=== PATIENT | female | born 1960 | race Caucasian/White ===

== ENCOUNTER 2017-09-23 12:00 | Emergency (ER) | payer MEDICARE | END 2017-09-23 13:20 | disposition home or self-care (01) | LOC: SCSER 12:00 | DX: J30.9 Allergic rhinitis, unspecified (principal); E03.9 Hypothyroidism, unspecified; K21.9 Gastro-esophageal reflux disease without esophagitis; E78.5 Hyperlipidemia, unspecified; I12.0 Hypertensive chronic kidney disease with stage 5 chronic kidney disease or end stage renal disease; N18.6 End stage renal disease; F31.9 Bipolar disorder, unspecified; Z79.899 Other long term (current) drug therapy | CPT/HCPCS: 99283 ==

== ENCOUNTER 2017-11-24 00:27 | Inpatient (IN) | payer MEDICARE ==
[2017-11-24] MEDS ORDERED: Diltiazem 125 MG in Sodium Chloride 0.9% 100 ML IVPB SCH (03:00)
[2017-11-24] MEDS ORDERED: Acetaminophen 325 MG TAB ONE (03:40)
[2017-11-24] MEDS ORDERED: Acetaminophen 325 MG TAB PO PRN (07:50)
[2017-11-24] MEDS ORDERED: Milk Of Magnesia 30 ML UDCUP PO PRN (07:50)
[2017-11-24] MEDS ORDERED: Heparin 5,000 UNITS/ML VIAL ONE (09:13)
[2017-11-24] MEDS: Heparin 5,000 UNITS/ML VIAL SC SCH ×3 (09:22→20:42)
[2017-11-24] MEDS: Docusate 100 MG CAP PO SCH ×2 (09:23→20:41)
--- NOTE | 2017-11-24 17:43 | HP ---
PRIMARY CARE PHYSICIAN: JOSE Rayo. PRESENTING COMPLAINTS: "I felt unwell." HISTORY OF PRESENT ILLNESS: Ms. Milla Olivia is a 57-year-old female with a past medical history of bipolar disorder, hyperlipidemia, hypertension, hypothyroidism, and ? Parkinson's disease who presen ray to the emergency room due to feeling unwell. She reports feeling unwell yesterday with nonspecif ic symptoms and some shortness of breath and earlier this morning, her son decided to take her throug h the emergency room in [place] where she was diagnosed with a left lung pneumonia and started o n treatment. While she was there, she was noted to be very tachycardic and EKG revealed atrial fibri llation with RVR. She was then transported to the emergency room at [place]. At the emergency ro om, she was given rate control medications successfully and eventually started on a Cardizem drip. PAST MEDICAL HISTORY: As above. PAST SURGICAL HISTORY: History of BTL. FAMILY HISTORY: Reviewed and noncontributory. SOCIAL HISTORY: Does not smoke cigarettes, drink alcohol or use illicit drugs. ALLERGIES: PENICILLIN, CODEINE. LABORATORY DATA: WBC 17,900, hemoglobin 11.8, platelets 116. CMP with BUN of 47, creatinine of 2.90 , otherwise unremarkable. BNP 244. TSH 3.0. ASSESSMENT AND PLAN: 1. Atrial fibrillation with rapid ventricular response, new onset. TSH within normal limits. We wi ll get the transthoracic echocardiogram. Continue on Cardizem drip. Wean off and have Cardiology co nsult. 2. Chronic kidney disease stage. We will monitor creatinine. Last creatinine before this admission was 2.72 in 04/2015. Clinically, she has an acute kidney injury, but we will monitor. 3. Hypertension. Blood pressure is around goal. We will resume her home medications. 4. Hyperlipidemia. We will also resume home medications. 5. Hypothyroidism. TSH within normal limits. We will resume levothyroxine. CODE STATUS: FULL CODE.
[2017-11-24 20:28] VITALS: BMI 46.1
[2017-11-24] MEDS: Divalproex Sodium DR 500 MG TAB PO SCH (20:40)
[2017-11-24] MEDS: Benztropine 1 MG TAB PO SCH (20:41)
[2017-11-24] MEDS: Pravastatin Sodium 40 MG TAB PO SCH (20:41)
--- NOTE | 2017-11-24 22:17 | CON ---
DATE OF CONSULTATION: 11/24/2017 DATE OF ADMISSION: 11/24/2017 INDICATION FOR CONSULTATION: A 57-year-old female with atrial fibrillation. HISTORY OF PRESENT ILLNESS: Please refer to the notes already dictated by my nurse practitioner. I have reviewed those notes and reviewed with the assessment and plan. This very unfortunate 57-year-o ld female who has a history of bipolar disorder, presented to the emergency room in [facility] not very well. She thought maybe she was sick. She did not continue herself. Her son said that she had now been taking medications for her bipolar disorder again and only she is very consistent a bout taking these. When she arrived there, it was thought that she possibly had some pneumonia, but she denied any recent fevers and she was not coughing and was found to be in atrial fibrillation with a rapid ventricular response. Hence she was transferred here to our facility for further evaluation and treatment. She has had no previous cardiac history. However, she does have a history of hypert ension, hyperlipidemia, and may have Parkinson's disease also, as well as her bipolar disorder. She may have recently been diagnosed with Parkinson's disease. At this time, she is resting more comfort ably. She has been started on medications in the form of diltiazem and she had been on atenolol at h ome, but she is on diltiazem at this time for rate control and appears to be under much better contro l at this time. But in arrival, her admission EKG showed heart were almost between 100 and 150 beats per minute. There were no ST segment changes to indicate ischemia; however, her son says that at th is occasion, she had been complaining of some chest tightness. Her EKG has evidence for a probable l eft ventricular hypertrophy. There is evidence also of left anterior fascicular block which really c annot be diagnosed in the face of left ventricular hypertrophy, but otherwise has atrial fibrillation with rapid ventricular response. For her past medical history, social history, review of systems, please refer to the notes dictated b y the nurse practitioner. PHYSICAL EXAMINATION: GENERAL: Reveals a short statured female who is in no acute distress at this time. She is actually alert and oriented. HEENT: Shows head to be normocephalic, atraumatic. Carotid pulses are present. There were no bruit s noted. CHEST: Clear to auscultation without any rales, rhonchi or wheezing. CARDIOVASCULAR: Exam reveals some tachycardia. There were no significant murmurs, heaves, thrills, bruits or rubs noted. ABDOMEN: Soft and nontender, slight obesity. No palpable masses. EXTREMITIES: Show no clubbing or cyanosis. No significant edema. She does have some stiffness and decreased mobility involving the right lower extremity due to previous hip surgery. Pedal pulses are present. NEUROLOGIC: The patient appears to be intact at this time. She also has poor dentition. Neurologic ally, I do not see any gross focal motor deficits at this time. IMPRESSION: 1. Atrial fibrillation with rapid ventricular response. She has been placed on heparin as well as I V diltiazem. We will start her also back on her beta blockers for better rate control. We do not kn ow how long she has had atrial fibrillation, so best to anticoagulate this lady. She will need to potter ve long-term anticoagulation and then when she has been anticoagulated for 4-6 weeks, we may consider electrical cardioversion of her atrial fibrillation back to normal sinus rhythm. Her echocardiogram indicates that the left atrium was moderately dilated, but it is less than 5.0 cm, then she may be a candidate to undergo cardioversion back to sinus rhythm but may need medical management in order to maintain sinus rhythm. Her ejection fraction also was slightly decreased at 45-50%, which may be ass ociated with atrial fibrillation and rapid ventricular response. Once it is under better control, th is may improve. 2. History of hypertension. We will resume her medications in order to better control the blood pre ssure. At this time, that appears to be under good control. Her last documented blood pressure was 130/97. 3. Hypercholesterolemia. We will continue her medications. Also, please note that she does have si gnificant stage III kidney disease; however, I did note that she is also taking losartan, which is an ARB. She sees a party demonstrator I believe at another facility and apparently does stay in touch with h er party demonstrator at this time. At this time, the goal would be to rate control this lady and start or al anticoagulation as soon as possible. For other information, please refer to the notes already dic tated by the nurse practitioner.
--- NOTE | 2017-11-24 23:45 | CON ---
DATE OF CONSULTATION: 11/24/2017 CARDIOLOGY CONSULT PRIMARY CARE PHYSICIAN: JOSE Rayo PRIMARY FILTER CHANGING TECHNICIAN: Dr. Carla Fried. REFERRING DOCTOR: Dr. Duy Jones. REASON FOR CARDIOLOGY CONSULTATION: New-onset atrial fibrillation. HISTORY OF PRESENT ILLNESS: Ms. Olivia is a very pleasant 57-year-old female with significant past medical history of bipolar disorder, hypertension, hyperlipidemia, hypothyroidism, chronic kidney disease stage 3, and the possible new onset of Parkinson disease. Patient presented to the emergency department in [place] due to the weakness, fatigue, intermittent shortness of breath, and light dizziness a few days. The patient was found to have atrial fibrillation with rapid ventricular response with slight shortness of breath, but not other cardiac complaints. Patient was transferred to [facility] for further evaluation and treatment. During the initial Cardiology assessment, patient denied any chest pain or discomfort in her chest, shortness of breath, or palpitation or fluttering in her chest, nausea, vomiting, or numbness in the left arm, or any other cardiologic complaints. Patient does not have any significant cardiac-related medical history. She never had a stress test or echocardiogram before. personnel monitor records shows atrial fibrillation with heart rate 70s-90s with diltiazem 5 mg per an hour at this moment. PAST MEDICAL HISTORY: 1. Chronic kidney disease, stage 3. She is following by Dr. Chacon at the [facility]. 2. Bipolar disorder. 3. Hypothyroidism. 4. Hypertension. 5. Hyperlipidemia. 6. Pneumonia. 7. History of UTI. 8. Possible new onset of Parkinson disease and very significant tremor in both arms. 9. She had several history of fall. PAST SURGICAL HISTORY: She had bilateral tubal ligation and right hip fusion. FAMILY HISTORY: The patient's mother and father due to heart disease, also they are very heavy smoker according to the patient's reports but other than that, there is no significant family history of coronary artery disease, diabetes, hypertension, CVA, or diabetes. SOCIAL HISTORY: Patient is and lived by herself. She had one son who lived well and living like 20 minutes from her home. She denies any ETOH, smoking, or illicit drug abuse. ALLERGIES: She is allergic to PENICILLIN, CODEINE. HOME MEDICATIONS: Depakote 1000 mg in a.m. and 500 mg in p.m., Risperdal 1 mg once a day, levothyroxine 100 mcg once a day, pravastatin 40 mg once a day, Protonix 40 mg once a day, losartan 50 mg once a day, Cogentin 1 mg twice a day , atenolol 50 mg once a day. REVIEW OF SYSTEMS: The following complete review of systems was negative, unless otherwise mentioned in the HPI or below: Constitutional: Weight loss or gain, sense of well-being, ability to conduct usual activities, exercise tolerance; however, she is having hard time to eat due to the severe tremors to the bilateral upper extremities. Skin: Rash, itching, change in hair growth, or nail changes. Breasts: Lumps, tenderness, swelling, nipple discharge. Eyes : She wears glasses, but denied any vision change, double vision, tearing, blind spots, pain. HEENT: Headache, vertigo, lightheadedness, nasal bleeding, cold, obstruction or discharge, dental difficulties, gingival bleeding, dentures , neck stiffness, pain, tenderness, mass in the thyroid or other areas. Cardiovascular: Precordial pain, substernal distress, palpitations, syncope, dyspnea on exertion, orthopnea, nocturnal dyspnea, edema, cyanosis, heart murmur , varicosis, claudication. Respiratory: Pain, no wheezing, stridor, cough, hemoptysis. Gastrointestinal: Poor appetite, dysphagia, indigestion, abdominal pain, heartburn, nausea, vomiting, diarrhea, abnormal stool, blood in the stool. Patient reports that she has chronic constipation. Genitourinary: Urgency, frequency, dysuria, nocturia, hematuria, polyuria, oliguria, ege color of urine. Musculoskeletal: Patient reports patient's right side 1 inch shorter than left leg, so she wears the special shoes to balance, but she denied pain, swelling, redness, heat on muscle or joint, limit of motion. Positive for severe tremor in the upper extremities. Neurologic: Seizure, convulsion, paralysis, tremor, incoordination, difficulty with memory, or speech. Psychiatric: No emotional problem, anxiety, depression within last 3 months. PHYSICAL EXAMINATION: VITAL SIGNS: Patient's blood pressure in the ER was 108/74, heart rate around 70-80s with AFib, 2 liters on O2 sats, 98.4 temperature, respiratory rate 18. GENERAL: Well-developed, well-nourished without any acute distress. HEAD: Normocephalic, atraumatic. EYES: Extraocular muscle movement intact. ENT: Oral and nasal mucosa are moist without lesion. NECK: No JVD. Neck is supple and normal range of motion. LUNGS: Clear to auscultation bilaterally, but very diminished at bases. No wheezing, rales, or rhonchi noted. CARDIOVASCULAR: Irregular irregular. No significant murmur, hives, thrill, bruits, or rubs noted. There are 2+ pulses in the bilateral dorsal pedis, posterior tibial, and popliteal. Carotid pulses presented without bruit or thrill, no edema in the bilateral lower extremities. ABDOMEN: Soft, nontender or mass to palpate, nondistended. Bowel sounds are present. EXTREMITIES: She has a good appetite. MUSCULOSKELETAL: There are severe tremors in the bilateral upper extremities. No calf tenderness. She can sit at bedside without any difficulty, but she is having hard to difficulty to get up from the bed. SKIN: Warm and dry. No skin rash, lesion, or bruise noted. NEUROLOGIC: Alert, oriented x4, awake. Normal affect. Nonfocal. PSYCHIATRIC: Her mood and affect are normal. IMAGING: A 12-lead EKG at ER shows atrial fibrillation with rapid ventricular response with heart rate of 112, , but no ST segment change or T-wave inversion. LABORATORY DATA: The patient's labs WBC 7.9, hemoglobin 11.8, hematocrit 34.9, platelets 116. D-dimer 1.99. Sodium 136, potassium 3.8, BUN of 47, creatinine 2.9, glucose 125. AST 13, ALT 8. CK-MB is 1.2 and troponin is 0.020. BNP is 244. TSH is 3.0065. The patient's chest x-ray showed the opacity within in a left perihilar region and a mild left lung zone for possible infection of pneumonia and/or aspiration. Today's echocardiogram shows EF of 45%-50%, moderate dilated left atrium, mildly enlarged right atrium, mild mitral valve regurgitation, and mild tricuspid regurgitation. ASSESSMENT AND PLAN: 1. New-onset atrial fibrillation with rapid ventricular response. Patient's echocardiogram shows within normal range. The patient's TSH is also within normal range. Patient's heart rate is stable with diltiazem 5 mg per an hour IV. We would like to change the patient's medication to the p.o. form IV eventually, but we would like to continue the diltiazem at this moment. 2. Left-lobe pneumonia. The chest x-ray revealed that patient had pneumonia in the left lung. At this moment, patient is not on any diuretic. We defer the pneumonia management to the patient's primary care doctor. 3. Hypertension. Her blood pressure is stable at this time. We would like to continue patient on atenolol 50 mg once a day, losartan 50 mg once a day. We would like to continue to monitor. 4. Chronic kidney disease, stage 3. Patient's creatinine is 2.9 today, which was 2.72 in 2015. We would like to continue to monitor. 5. Elevated D-dimer. Patient is on heparin subcutaneous 5000 units 3 times a day. Patient denied any pain with breathing or lower extremities at this moment , we would like to continue to monitor. 6. Hyperlipidemia. She is on pravastatin 40 mg once a day. 7. Hypothyroidism. Patient's TSH within normal range. She is on levothyroxine 100 mcg, which is managed by her primary care doctor. 8. Possible new onset of Parkinson disease and very significant tremor in both arms. Her primary care doctors already resumed her Parkinson medication. The order for PT and OT evaluation and treatment were ordered. Thank you very much for allowing the Cardiology service to participate in the care of the patient. We will follow along with the patient's care team and make further recommendations as appropriate. BERNICED
[2017-11-25] MEDS: Levothyroxine Sodium 100 MCG TAB PO SCH (05:05)
[2017-11-25 05:25] LABS: #Eosinphils 0.1 thou/uL (0.0-0.7); #Lymphocytes 2.8 thou/uL (1.20-3.40); #Monocytes 0.6 thou/uL (0.11-0.59); #Neutrophils 3.7 thou/uL (1.40-6.50); %Basophils 0.7 % (0.0-1.0); %Eosinophils 0.9 % (0.0-10.0); %Monocytes 8.5 % (0.0-10.0); Hemoglobin 11.1 g/dL (12.0-16.0); Mean Corpuscular Hemoglobin 33.5 pg (27.0-31.0); Mean Platelet Volume 7.6 fL (7.4-10.4); Platelet Count 139 thou/uL (130-400); RBC Distribution Width 11.9 % (11.5-14.5); Red Blood Cell (RBC) Count 3.31 mill/uL (4.20-5.40); White Blood Cell (WBC) Count 7.3 thou/uL (4.8-10.8)
[2017-11-25 05:39] LABS: Anion Gap 12 mmol/L (10-20); BUN (Urea Nitrogen) 46 mg/dL (9.8-20.1); Calc. Creatinine Clearance 50 mL/min (70-130); Carbon Dioxide 24 mmol/L (22-29); Chloride 108 mmol/L (98-107); Estimated GFR-MDRD 26; Glucose 84 mg/dL (70-105); Magnesium 2.2 mg/dL (1.6-2.6); Potassium 4.3 mmol/L (3.5-5.1); Sodium 140 mmol/L (136-145)
--- NOTE | 2017-11-25 09:00 | PDOC.CTH ---
<Cecilia Nichole - Last Filed: 11/25/17 16:08> Cardiology Progress Note - Subjective The pt seen and examined. No overnight events. No cardiac complaints. - Objective Vital Signs Temp Pulse Resp BP Pulse Ox 11/25/17 03:48 97.5 F L 68 20 126/98 H 95 11/25/17 01:00 86 106/71 Weight 221 lb 4.8 oz 11/24/17 11/25/17 11/26/17 06:59 06:59 06:59 Intake Total 965 Output Total 700 Balance 265 - Physical Examination General/Neuro: alert & oriented x3 Neck: no JVD present Lungs: CTA Heart: RRR Abdomen: soft Extremities: other: (No edema) - Telemetry Telemetry Rhythm: Afib 80-90s - Labs Result Diagrams: 11/25/17 04:41 11/25/17 04:41 - Assessment/Plan 1. New onset Afib with RVR - Remains in Afib with well controlled HR with Diltiazem IV 5mg/h and atenolol. Change Diltiazem from IV to PO 120mg daily; cont. monitor on tele; Due to CHAD2 score 1, start ASA 325mg daily 2. HTN - stable with current medication; cont. monitor 3. CKD stage 3 - improving today. cont. monitor 4. Hyperlipidemia - on Statin 5. Hypothyroidism - managed by PCP 6. Parkinson disease - Per PT, the pt walked to bathroom without any difficulties. 7. PNA - managed by PCP MAR reviewed Review of Systems - Review of Systems Constitutional: reports: no symptoms reported EENTM: reports: no symptoms reported Respiratory: reports: no symptoms reported Cardiac (ROS): reports: no symptoms reported ABD/GI: reports: no symptoms reported : reports: flank pain Musculoskeletal: reports: other <Jyoti Fried - Last Filed: 11/25/17 18:25> Cardiology Progress Note - Objective Vital Signs Temp Pulse Pulse Pulse Resp BP BP 11/25/17 14:19 93 121/90 11/25/17 09:17 87 125/73 11/25/17 08:00 98.3 F 87 18 11/25/17 07:59 97 92 134/87 BP BP Pulse Ox 11/25/17 14:19 11/25/17 09:17 11/25/17 08:00 125/73 97 11/25/17 07:59 144/83 H Weight 221 lb 4.8 oz 11/24/17 11/25/17 11/26/17 06:59 06:59 06:59 Intake Total 965 Output Total 700 Balance 265 - Labs Result Diagrams: 11/25/17 04:41 11/25/17 04:41 - Assessment/Plan Pt. seen and eval. by me. I agree with the A/P by the MARKETING [employer] LEAD. For now the goal is to obtain rate control of the atrial fib. I suggest she have a stress test to rule out ischemia as a possible cause of the A-fib. However with the tremors it may be difficult to obtain good nuclear pictures. She should f/u with neurology and see if medical management can improve the tremors and then schedule for a stress test. With her renal compromise she is not a good candidate for cardiac cath. We will continue to monitor. A nephrology consult would be advisable.
[2017-11-25] MEDS: Heparin 5,000 UNITS/ML VIAL SC SCH ×3 (09:21→20:50)
[2017-11-25] MEDS: Losartan 25 MG TAB PO SCH (09:21)
[2017-11-25] MEDS: Docusate 100 MG CAP PO SCH ×2 (09:21→20:50)
[2017-11-25] MEDS: Benztropine 1 MG TAB PO SCH ×2 (09:21→20:50)
[2017-11-25] MEDS: risperiDONE 1 MG TAB PO SCH (09:22)
[2017-11-25] MEDS: Divalproex Sodium DR 500 MG TAB PO SCH ×2 (09:22→20:50)
--- NOTE | 2017-11-25 13:02 | PDOC.PN ---
- Subjective Encounter Start Date: 11/25/17 Encounter Start Time: 07:20 Pt seen for followup re: pneumonia. Denies cough, fevers or chills. No nausea or vomiting. - Objective Resuscitation Status: Resuscitation Status FULL:Full Resuscitation MAR Reviewed: Yes Vital Signs & Weight: Vital Signs (12 hours) Temp Pulse Pulse Pulse Resp BP BP 11/25/17 09:17 87 125/73 11/25/17 08:00 97.3 F L 87 18 11/25/17 07:59 97 92 134/87 11/25/17 03:48 97.5 F L 68 20 BP BP Pulse Ox 11/25/17 09:17 11/25/17 08:00 125/73 97 11/25/17 07:59 144/83 H 11/25/17 03:48 126/98 H 95 Weight Weight 221 lb 4.8 oz I&O: 11/24/17 11/25/17 11/26/17 06:59 06:59 06:59 Intake Total 965 Output Total 700 Balance 265 Result Diagrams: 11/25/17 04:41 11/25/17 04:41 EKG Reviewed by me: Yes (Tele: luis la with RVR) Phys Exam - Physical Examination Constitutional: NAD HEENT: moist MMs Neck: supple Respiratory: clear to auscultation bilateral Cardiovascular: irregular Gastrointestinal: soft Neurological: moves all 4 limbs Psychiatric: normal affect Skin: no rash Dx/Plan (1) PNA (pneumonia) Code(s): J18.9 - PNEUMONIA, UNSPECIFIED ORGANISM Status: Acute (2) Atrial fibrillation with RVR Code(s): I48.91 - UNSPECIFIED ATRIAL FIBRILLATION Status: Acute (3) CKD (chronic kidney disease) Code(s): N18.9 - CHRONIC KIDNEY DISEASE, UNSPECIFIED Status: Chronic (4) HLD (hyperlipidemia) Code(s): E78.5 - HYPERLIPIDEMIA, UNSPECIFIED Status: Chronic (5) HTN (hypertension) Code(s): I10 - ESSENTIAL (PRIMARY) HYPERTENSION Status: Chronic (6) Hypothyroidism Code(s): E03.9 - HYPOTHYROIDISM, UNSPECIFIED Status: Chronic - Plan continue antibiotics, out of bed/ambulate * . Continue IV antibiotics as below. Monitor vital signs, titrate antihypertensives as needed. Creatinine improving, hold nephrotoxic medications. Repeat CXR in 2 days to evaluate mass vs infiltrate. Continue synthroid. Continue calcium channel sawyer for a. fib. Review of Systems - Review of Systems Respiratory: negative: Cough, Dry, Shortness of Breath, Hemoptysis, SOB with Excertion, Pleuritic Pain, Sputum, Wheezing Cardiovascular: negative: chest pain, palpitations, orthopnea, paroxysmal nocturnal dyspnea, edema, light headedness - Medications/Allergies Allergies/Adverse Reactions: Allergies Allergy/AdvReac Type Severity Reaction Status Date / Time codeine Allergy Verified 11/24/17 02:49 Penicillins Allergy Verified 11/24/17 02:49 Medications: Current Medications Acetaminophen (Tylenol) 650 mg PO Q4H PRN PRN Reason: Headache/Fever or Pain Atenolol (Tenormin) 50 mg PO 2000 [facility] Benztropine Mesylate (Cogentin) 1 mg PO BID [facility] Last Admin: 11/25/17 09:21 Dose: 1 mg Diltiazem HCl (Cardizem Cd) 120 mg PO DAILY [facility] Last Admin: 11/25/17 09:17 Dose: 120 mg Divalproex Sodium (Depakote) 500 mg PO QPM [facility] Last Admin: 11/24/17 20:40 Dose: 500 mg Divalproex Sodium (Depakote) 1,000 mg PO QAM [facility] Last Admin: 11/25/17 09:22 Dose: 1,000 mg Docusate Sodium (Colace) 100 mg PO BID [facility] Last Admin: 11/25/17 09:21 Dose: 100 mg Heparin Sodium (Porcine) (Heparin) 5,000 units SC TID [facility] Last Admin: 11/25/17 09:21 Dose: 5,000 units Levothyroxine Sodium (Synthroid) 100 mcg PO 0600 [facility] Last Admin: 11/25/17 05:05 Dose: 100 mcg Losartan Potassium (Cozaar) 50 mg PO DAILY [facility] Last Admin: 11/25/17 09:21 Dose: 50 mg Magnesium Hydroxide (Milk Of Magnesium) 30 ml PO DAILYPRN PRN PRN Reason: Constipation Pantoprazole Sodium (Protonix) 40 mg PO DAILY [facility] Last Admin: 11/25/17 09:22 Dose: 40 mg Pravastatin Sodium (Pravachol) 40 mg PO HS [facility] Last Admin: 11/24/17 20:41 Dose: 40 mg Risperidone (Risperidone) 1 mg PO DAILY [facility] Last Admin: 11/25/17 09:22 Dose: 1 mg
[2017-11-25] MEDS ORDERED: Bisacodyl 5 MG TAB PO PRN (17:27)
[2017-11-25] MEDS ORDERED: Bisacodyl 5 MG TAB PO SCH (17:30)
[2017-11-25] MEDS ORDERED: Atenolol 50 MG TAB PO SCH (20:00)
[2017-11-25] MEDS: Pravastatin Sodium 40 MG TAB PO SCH (20:50)
[2017-11-26] MEDS: Levothyroxine Sodium 100 MCG TAB PO SCH (05:20)
[2017-11-26 05:33] LABS: Anion Gap 11 mmol/L (10-20); BUN (Urea Nitrogen) 36 mg/dL (9.8-20.1); Calc. Creatinine Clearance 64 mL/min (70-130); Calcium 9.3 mg/dL (7.8-10.44); Carbon Dioxide 25 mmol/L (22-29); Chloride 108 mmol/L (98-107); Estimated GFR-MDRD 35; Glucose 91 mg/dL (70-105); Magnesium 1.9 mg/dL (1.6-2.6); Potassium 4.7 mmol/L (3.5-5.1); Sodium 139 mmol/L (136-145)
[2017-11-26 05:39] LABS: Band 5 % (5-11); Eosinophils 2 % (0-10); Hemoglobin 11.6 g/dL (12.0-16.0); Lymphocytes 53 % (21-51); MDiff Complete? YES; Mean Corpuscular HGB CONC 33.7 g/dL (32.0-36.0); Mean Corpuscular Hemoglobin 34.3 pg (27.0-31.0); Mean Platelet Volume 7.2 fL (7.4-10.4); Monocytes 9 % (0-10); Neutrophil 30 % (42-75); PLT Morphology Comment Appears Adequate; Platelet Count 155 thou/uL (130-400); RBC Distribution Width 11.8 % (11.5-14.5); Red Blood Cell (RBC) Count 3.38 mill/uL (4.20-5.40); White Blood Cell (WBC) Count 5.3 thou/uL (4.8-10.8)
[2017-11-26] MEDS: Losartan 25 MG TAB PO SCH (08:47)
[2017-11-26] MEDS: Benztropine 1 MG TAB PO SCH (08:48)
[2017-11-26] MEDS: Heparin 5,000 UNITS/ML VIAL SC SCH ×2 (08:48→14:51)
[2017-11-26] MEDS: risperiDONE 1 MG TAB PO SCH (08:48)
[2017-11-26] MEDS: Divalproex Sodium DR 500 MG TAB PO SCH (08:48)
[2017-11-26] MEDS: Docusate 100 MG CAP PO SCH (08:48)
[2017-11-26] MEDS ORDERED: Aspirin 81 mg Enteric Coated Tablet PO SCH ×2 (09:15→09:30)
--- NOTE | 2017-11-26 10:17 | RAD ---
CHEST 2 VIEWS: HISTORY: Pneumonia. Followup. COMPARISON: 11/23/17. FINDINGS: The cardiac silhouette and pulmonary vasculature are upper limits of normal. Ill-defined parenchymal infiltrate within the left upper lobe is much less dense and consolidated than on the prior exam. M ediastinum is midline. NO pleural fluid. air sampling and monitoring leads overlie the chest. IMPRESSION: Significant interval improvement in left upper lobe infiltrate. No new abnormalities are demonstrate d. POS: OFF
[2017-11-26] MEDS ORDERED: Azithromycin 250 MG TAB PO SCH (13:00)
--- NOTE | 2017-11-26 14:42 | DIS ---
DATE OF ADMISSION: 11/24/2017 DATE OF DISCHARGE: 11/26/2017 PRIMARY CARE PROVIDER: Elvia Chapman NP. DISCHARGE DIAGNOSES: 1. Atrial fibrillation with rapid ventricular response. 2. Community-acquired pneumonia. CONDITION OF PATIENT ON THE DAY OF DISCHARGE: Stable. I assess Ms. Olivia on the day of discharge . She denies any chest pain or shortness of breath. Vital signs are stable. S1 and S2 are heard, i rregular. Lungs are clear to auscultation bilaterally. CONSULTATIONS DURING THIS HOSPITALIZATION: Cardiology, Dr. Fried. DISCHARGE MEDICATIONS: Aspirin 325 mg daily, atenolol 50 mg daily, Z-BRIAN, Cogentin 1 mg 2 times a d ay, Cardizem-CD 120 mg daily, Depakote 500 mg in the evening and 1000 mg in the morning, levothyroxin e 100 mcg daily, losartan 50 mg daily, Protonix 40 mg daily, pravastatin 40 mg at bedtime, and risper idone 1 mg daily. HOSPITAL COURSE: Ms. Olivia is a pleasant 57-year-old lady who was admitted to [facility] on 11/24/2017 for atrial fibrillation with rapid ventricular response. Just prior to this hospitalization, she was also diagnosed with pneumonia. The initial chest x-ray done on 018 questioned whether there was an underlying pulmonary parenchymal mass lesion on the basis of josephine gnancy. A follow up chest x-ray on 11/26/2017 showed significant interval improvement in left upper lobe infiltrates, with no new abnormalities. She is being started on azithromycin on the day of disc harge. She was seen by Cardiology Service for atrial fibrillation with rapid ventricular response. She has been started on Cardizem-CD. Her atenolol was continued. Cardiology Service also recommended treati ng her with aspirin for stroke prophylaxis. She also had renal insufficiency, peak creatinine 2.90 on 11/23/2017. Last known creatinine was 2.72 on 04/08/2015. Her creatinine improved to 1.54 on the day of discharge. She is advised to follow u p with her primary care provider and have her creatinine rechecked in approximately 5-7 days. On the day of discharge, she has a normal sodium, normal potassium, creatinine 1.54, blood urea nitro gen 36, white count 5300, hemoglobin 11.6, and platelet count 155,000. Many thanks for allowing me to participate in your patient's care. Please feel free to contact me wi th any questions or concerns. DISCHARGE DESTINATION: Home. TOTAL AMOUNT OF TIME SPENT COORDINATING THIS DISCHARGE: 32 minutes.
--- NOTE | 2017-11-26 15:14 | PDOC.CTH ---
<DayanaraCecilia - Last Filed: 11/26/17 15:14> Cardiology Progress Note - Subjective The pt seen and examined. No overnight events. No cardiac complaints. per pt , she walked the linda twice without any difficulties. She also reported that her tremors are stable with medications. - Objective Vital Signs Temp Pulse Pulse Pulse Resp BP BP 11/26/17 13:31 71 70 109/71 11/26/17 12:22 98.1 F 74 16 11/26/17 08:47 78 120/87 11/26/17 07:46 98.2 F 78 16 11/26/17 03:46 97.6 F 79 17 BP BP BP Pulse Ox Pulse Ox Pulse Ox 11/26/17 13:31 143/84 H 97 98 11/26/17 12:22 112/58 L 97 11/26/17 08:47 11/26/17 07:46 120/87 97 11/26/17 03:46 142/97 H 97 Weight 218 lb 11/25/17 11/26/17 11/27/17 06:59 06:59 06:59 Intake Total 965 1320 720 Output Total 700 650 Balance 265 670 720 - Physical Examination General/Neuro: alert & oriented x3 Neck: no JVD present Lungs: CTA Heart: other: (irregular) Abdomen: soft Extremities: other: (No edema) - Telemetry Telemetry Rhythm: Afib HR 70-80s - Labs Result Diagrams: 11/26/17 04:27 11/26/17 04:27 - Assessment/Plan 1. New onset Afib with RVR - Remains in Afib with well controlled HR 70-80s with Diltiazem 120mg Daily and atenolol. Due to [id number] score 1, start ASA 325mg daily 2. HTN - stable with current medication; cont. monitor 3. CKD stage 3 - improving today. cont. monitor 4. Hyperlipidemia - on Statin 5. Hypothyroidism - managed by PCP 6. Parkinson disease with tremor - stable 7. PNA - managed by PCP 8. UTI - on Antibiotic PO; managed by PCP CHARMAINE reviewed * Possible Stress test when her tremor improve with medication/procedures. * From Cardiac standpoint, the pt is stable to be d/obdulio home. The pt will f/u with Dr Fried' office within 4 wks with Echo to see if there any improvement with controlled HR and possible Cardioversion when the pt agrees. Review of Systems - Review of Systems Constitutional: reports: no symptoms reported EENTM: reports: no symptoms reported Respiratory: reports: no symptoms reported Cardiac (ROS): reports: no symptoms reported ABD/GI: reports: no symptoms reported : reports: no symptoms reported Musculoskeletal: reports: no symptoms reported Skin: reports: no symptoms reported Neurological: reports: see HPI <Jyoti Fried - Last Filed: 11/26/17 18:47> Cardiology Progress Note - Objective Vital Signs Temp Pulse Pulse Pulse Resp BP BP 11/26/17 15:37 97.5 F L 87 16 11/26/17 13:31 71 70 109/71 11/26/17 12:22 98.1 F 74 16 11/26/17 08:47 78 120/87 11/26/17 07:46 98.2 F 78 16 BP BP BP Pulse Ox Pulse Ox Pulse Ox 11/26/17 15:37 166/66 H 95 11/26/17 13:31 143/84 H 97 98 11/26/17 12:22 112/58 L 97 11/26/17 08:47 11/26/17 07:46 120/87 97 Weight 218 lb 11/25/17 11/26/17 11/27/17 06:59 06:59 06:59 Intake Total 965 1320 720 Output Total 700 650 Balance 265 670 720 - Labs Result Diagrams: 11/26/17 04:27 11/26/17 04:27 - Assessment/Plan Pt. seen and eval. by me. i agree with the a/P by the [employer]. She is feeling better today. The HR is under good control. I will see her back in the office in 2-3 weeks.
[2017-11-26 15:40] VITALS: BP 166/66; TEMP 97.5
[2017-11-27] MEDS ORDERED: Aspirin 325 mg Enteric Coated Tablet PO SCH (09:00)
[2017-11-27] MEDS ORDERED: Aspirin 325 MG TAB PO SCH (09:00)
--- NOTE | 2017-12-11 19:56 | EKG ---
Test Reason : AFIB Blood Pressure : / mmHG Vent. Rate : 112 BPM Atrial Rate : 087 BPM P-R Int : 000 ms QRS Dur : 106 ms QT Int : 326 ms P-R-T Axes : 000 -46 056 degrees QTc Int : 444 ms Atrial fibrillation with rapid ventricular response Left anterior fascicular block Moderate voltage criteria for LVH, may be normal variant Abnormal ECG Confirmed by RADHA MORRIS ([id number]), pictures editor VERÓNICA FITZGERALD ([id number]) on 12/11/2017 7:55:11 PM Referred By: REINA MACE Confirmed By:RADHA MORRIS
== END 2017-11-26 16:49 | disposition home or self-care (01) | DRG 308 ==
LOC: ERS 00:27 → ERHOLD 01:41 → 2NO 13:22
PROVIDERS: ADMIT Internal Medicine Infectious Disease; ATTEND Internal Medicine Infectious Disease
DX: I48.91 Unspecified atrial fibrillation (principal); J18.9 Pneumonia, unspecified organism; G20 Parkinson's disease; N39.0 Urinary tract infection, site not specified; N18.3 Chronic kidney disease, stage 3 (moderate); E03.9 Hypothyroidism, unspecified; E78.5 Hyperlipidemia, unspecified; I12.9 Hypertensive chronic kidney disease with stage 1 through stage 4 chronic kidney disease, or unspecified chronic kidney disease; F31.9 Bipolar disorder, unspecified; N28.9 Disorder of kidney and ureter, unspecified
CPT/HCPCS: 36415; 71046; 80048; 83735; 85025; 87040; 93005; 93306; 96365; 96366; 96372; 96376; G8978-GP-CL; G8979-GP-CJ; G8987-GO-CJ; G8988-GO-CJ; G8989-GO-CJ; J1644; J7050

== ENCOUNTER 2018-07-12 06:15 | Emergency (ER) | payer MEDICARE ==
[2018-07-12] MEDS ORDERED: HYDROcodone/Acetaminophen 5/325 mg Tablet ONE (06:50)
--- NOTE | 2018-07-12 07:56 | RAD ---
LEFT HIP 2 VIEWS: Date: 07/12/18 HISTORY: Fall with injury to left hip. FINDINGS: Mild degenerative change is noted with mild spurring from the femoral head. No evidence of acute frac ture identified. IMPRESSION: No evidence of acute fracture. POS: OLIM[place]
== END 2018-07-12 08:07 | disposition home or self-care (01) ==
LOC: ERS 06:15
DX: M25.552 Pain in left hip (principal); E03.9 Hypothyroidism, unspecified; K21.9 Gastro-esophageal reflux disease without esophagitis; E78.5 Hyperlipidemia, unspecified; I12.0 Hypertensive chronic kidney disease with stage 5 chronic kidney disease or end stage renal disease; N18.6 End stage renal disease; F31.9 Bipolar disorder, unspecified; W19.XXXA Unspecified fall, initial encounter

== ENCOUNTER 2019-02-28 15:46 | Inpatient (IN) | payer MEDICARE ==
[2019-02-28] MEDS ORDERED: Magnesium 2 GM/50 ML BAG (IN WATER) ONE (16:26)
[2019-02-28] MEDS ORDERED: Fentanyl 100 MCG/2 ML VIAL ONE (16:26)
[2019-02-28] MEDS ORDERED: Aspirin 325 MG TAB ONE (16:26)
[2019-02-28] MEDS ORDERED: Digoxin 0.5 MG/2 ML AMP SLOW IVP SCH (16:30)
[2019-02-28 16:40] LABS: #Basophils 0.1 thou/uL (0.0-0.2); #Eosinphils 0.1 thou/uL (0.0-0.7); #Lymphocytes 2.4 thou/uL (1.20-3.40); #Monocytes 0.8 thou/uL (0.11-0.59); #Neutrophils 3.7 thou/uL (1.40-6.50); %Basophils 1.2 % (0.0-1.0); %Eosinophils 0.9 % (0.0-10.0); %Lymphocytes 34.2 % (21.0-51.0); %Monocytes 11.2 % (0.0-10.0); %Neutrophils 52.5 % (42.0-75.0); Hemoglobin 12.3 g/dL (12.0-16.0); Mean Corpuscular HGB CONC 33.7 g/dL (32.0-36.0); Mean Corpuscular Hemoglobin 32.7 pg (27.0-31.0); Mean Platelet Volume 7.2 fL (7.4-10.4); Platelet Count 166 thou/uL (130-400); RBC Distribution Width 12.1 % (11.5-14.5); Red Blood Cell (RBC) Count 3.76 mill/uL (4.20-5.40); White Blood Cell (WBC) Count 7.1 thou/uL (4.8-10.8)
[2019-02-28 16:41] LABS: Bilirubin Negative (Negative); Blood, Urine Negative (Negative); Clarity CLEAR (Clear); Glucose, Urine (Dipstick) Negative (Negative); Leukocyte Negative (Negative); Nitrite Negative (Negative); Protein, Urine (Dipstick) Negative (Neg-Trace); Specific Gravity, Urine 1.006 (1.002-1.036); Urobilinogen 0.2 mg/dL (0.2-1.0); pH, Urine 6.5 (5.0-9.0)
--- NOTE | 2019-02-28 16:54 | RAD ---
Frontal radiograph chest: 02/28/2019 COMPARISON: 08/22/2011 HISTORY: Chest pain, atrial fibrillation with rapid ventricular rate FINDINGS: Heart and mediastinal contours are stable. No pneumothorax or pleural fluid. No focal conso lidation or alveolar edema. IMPRESSION: No acute findings.
[2019-02-28 17:05] LABS: ALT (SGPT) 10 U/L (8-55); AST (SGOT) 14 U/L (5-34); Albumin 3.8 g/dL (3.5-5.0); Alkaline Phosphatase 75 U/L (40-150); Anion Gap 14 mmol/L (10-20); BUN (Urea Nitrogen) 40 mg/dL (9.8-20.1); Bilirubin, Total 0.3 mg/dL (0.2-1.2); CK (CPK) 160 U/L (29-168); Calc. Creatinine Clearance 0 mL/min (70-130); Calcium 9.8 mg/dL (7.8-10.44); Carbon Dioxide 23 mmol/L (22-29); Chloride 105 mmol/L (98-107); Estimated GFR-MDRD 36; Globulin 4.1 g/dL (2.4-3.5); Glucose 84 mg/dL (70-105); Lipase 60 U/L (8-78); Potassium 4.2 mmol/L (3.5-5.1); Protein, Total 7.9 g/dL (6.0-8.3); Sodium 138 mmol/L (136-145)
[2019-02-28] MEDS ORDERED: Digoxin 0.5 MG/2 ML AMP ONE (17:26)
[2019-02-28 20:22] VITALS: BMI 43.9
[2019-02-28] MEDS ORDERED: Ondansetron ODT 4 MG TAB SL PRN (20:50)
[2019-02-28] MEDS ORDERED: Ondansetron PF 4 MG/2 ML Vial IVP PRN (20:50)
[2019-02-28] MEDS ORDERED: Sodium Chloride 0.9% 1,000 ML IV SCH ×2 (21:00→22:08)
[2019-02-28] MEDS: Digoxin 0.5 MG/2 ML AMP SLOW IVP SCH (23:44)
--- NOTE | 2019-03-01 02:18 | HP ---
PRIMARY CARE PHYSICIAN: Elvia Chapman NP. CODE STATUS: Full code. TIME OF EVALUATION: 10:20 p.m. CHIEF COMPLAINT: "My PA sent me here for AFib." HISTORY OF PRESENT ILLNESS: This is a 58 years old female patient, with past medical history of hypothyroidism, GERD, hyperlipidemia, hypertension, end-stage renal disease, Parkinson's, came to the hospital after having an episode of AFib. The patient reported that it was seen by her LARDER COOK and sent her here. The patient has no significant clear symptoms. The symptoms started suddenly. REVIEW OF SYSTEMS: CONSTITUTIONAL: No fever, chills, or generalized weakness. RESPIRATORY: No cough, sputum production, or shortness of breath. CARDIOVASCULAR: The patient has some palpitation. No chest pain. GASTROINTESTINAL: No nausea, no vomiting, diarrhea, or abdominal pain. SOLOIST DANCER: No dizziness, headache, or feeling lightheaded. GENITOURINARY: No burning on urination. EXTREMITIES: No leg swelling. All other systems were reviewed and negative except for the findings mentioned above. PAST MEDICAL HISTORY: Positive for the findings mentioned in HPI. PAST SURGICAL HISTORY: Breast biopsy, tubal ligation, right hip surgery, fusion. PSYCHIATRIC HISTORY: Bipolar disorder, manic depression. SOCIAL HISTORY: No alcohol, no drugs, no smoking history. KNOWN ALLERGIES: Codeine sulfate and penicillin. REPORTED MEDICATIONS: 1. Levothyroxine. 2. Lasix. 3. Pantoprazole. 4. Pravastatin. 5. Losartan. 6. Atenolol. 7. Benztropine. 8. Divalproex. 9. Risperidone. PHYSICAL EXAMINATION: VITAL SIGNS: On presentation, blood pressure 127/103 with heart rate 151, respiratory rate was 16, temperature 97.8, pain 7/10, oxygen saturation 97% on room air. GENERAL APPEARANCE: The patient is alert, oriented, not in acute distress. HEENT: Eyes, normal conjunctivae. Moist oral mucosa. Anicteric. No JVD. RESPIRATORY: Bilateral air entry. No rales. No wheezes. Symmetric expansion. CARDIOVASCULAR: Normal rate, irregular rhythm. No murmurs. No gallop. No edema. ABDOMEN: Soft. Normal bowel sounds. MUSCULOSKELETAL: Baseline range of motion and strength. No tenderness. SKIN: Warm, intact. No pallor. No rash. No redness. Peripheral pulses are present. Capillary refill seems to be intact. NEUROLOGICAL: No evidence of any new focal weakness. Cranial nerves seems to be intact. PSYCHIATRIC: The patient is in good mood. No anxiety. Optimal judgment. IMAGING STUDIES: EKG was reviewed. The patient has atrial fibrillation at a rate of 115, QRS 102, QT corrected 439, left posterior fascicular block. Chest x-ray was reviewed, no acute findings. LABORATORY DATA: Reviewed. The patient has white count 7.1, hemoglobin 12.3, MCV 97, platelet count 166. D-dimer 0.29. Chemistry; sodium 138, potassium 4.2, chloride 105, carbon dioxide 23, anion gap 14, BUN 40, creatinine 1.51, GFR 36, glucose 84. LFTs were negative. Troponin was negative. B-type natriuretic peptide was 489. Albumin 3.8, globulin 4.1, albumin globulin ratio 0.9, lipase 60. TSH 3rd generation 3.2. ASSESSMENT AND PLAN: The patient will be placed in the hospital with following medical problems; 1. Atrial fibrillation with rapid ventricular response. This has been controlled; however, the patient can be reassessed on discharge in the morning, reconcile home medications, we will adjust as needed. 2. Chronic kidney disease, stage 3, with GFR 36. We will monitor kidney function. This is chronic, no significant changes. We will adjust treatment depending on the patient's clinical course. 3. History of congestive heart failure exacerbation. This is to be chronic. 4. Hypothyroidism. Continue hormone replacement. This is chronic, stable. 5. History of gastroesophageal reflux disease, reconcile home medications. This is chronic. Stable. 6. Hyperlipidemia. Low-cholesterol diet is advised, reconcile home medications. 7. Controlled hypertension. Reconcile home medications, monitor. 8. Deep venous thrombosis prophylaxis. Job ID: [id number]
[2019-03-01] MEDS: Digoxin 0.5 MG/2 ML AMP SLOW IVP SCH (05:02)
[2019-03-01] MEDS ORDERED: Azithromycin 250 MG TAB PO SCH (09:45)
[2019-03-01] MEDS ORDERED: Furosemide 20 MG TAB PO SCH (10:15)
[2019-03-01] MEDS ORDERED: Levothyroxine Sodium 100 MCG TAB PO SCH (10:15)
[2019-03-01] MEDS ORDERED: Losartan 25 MG TAB PO SCH (10:15)
[2019-03-01] MEDS ORDERED: Atenolol 50 MG TAB PO SCH (10:15)
[2019-03-01] MEDS ORDERED: risperiDONE 1 MG TAB PO SCH (10:15)
[2019-03-01] MEDS ORDERED: Aspirin 325 mg Enteric Coated Tablet PO SCH (10:15)
[2019-03-01] MEDS ORDERED: Benztropine 1 MG TAB PO SCH ×2 (10:15→21:00)
[2019-03-01] MEDS ORDERED: Divalproex Sodium DR 500 MG TAB PO SCH ×2 (10:15→21:00)
--- NOTE | 2019-03-01 18:27 | CON ---
DATE OF CONSULTATION: 03/01/2019 REASON FOR CONSULTATION: AFib with RVR. PRIMARY EXPRESSIVE MUSIC THERAPIST: Carla Fried MD HISTORY OF PRESENT ILLNESS: Ms. Olivia is a pleasant 58-year-old white female, who comes to the hospital for AFib. She went to see her nurse practitioner/PA today and was found to be in AFib with RVR, so was transferred over to the ER. She was asymptomatic at that time. On my evaluation, she is back to sinus rhythm, feeling back to normal. PAST MEDICAL HISTORY: 1. Hypothyroidism. 2. GERD. 3. Hyperlipidemia. 4. Hypertension. 5. End-stage renal disease. 6. Early Parkinson disease. 7. Paroxysmal atrial fibrillation, diagnosed just 6 months ago. 8. Bipolar disorder. 9. Manic depression. PAST SURGICAL HISTORY: 1. Breast biopsy. 2. Tubal ligation. 3. Right hip surgery. SOCIAL HISTORY: No alcohol, tobacco or drugs. ALLERGIES: CODEINE AND PENICILLIN. OUTPATIENT MEDICATIONS: 1. Lasix 20 mg a day. 2. Pravastatin 40 mg at bedtime. 3. Pantoprazole 40 mg daily. 4. Losartan 50 mg a day. 5. Aspirin 325 a day. 6. Depakote. 7. Levothyroxine. 8. Risperidone. 9. Benztropine. 10. Amiodarone 200 mg b.i.d. FAMILY HISTORY: Noncontributory. REVIEW OF SYSTEMS: A 12-point review of systems was done and was all negative unless stated in the history of present illness. PHYSICAL EXAMINATION: VITAL SIGNS: Temperature 97.7, pulse 69, respiratory rate 18, sat 95% on room air, and blood pressure 131/63. GENERAL: Awake, alert, and oriented x3. No distress. HEENT: Normocephalic and atraumatic. NECK: Supple. LUNGS: Clear. CARDIOVASCULAR: S1 and S2. No S3 or S4. No murmurs. ABDOMEN: Soft. Positive bowel sounds. EXTREMITIES: No edema. SKIN: Warm and dry. LABORATORY DATA: Laboratory work was reviewed. CBC is unremarkable. Coags normal. Chemistries unremarkable. BNP is a little high at 489. Troponin is negative x3. BUN of 40, creatinine of 1.5, otherwise unremarkable. Normal electrolytes. UA was negative. DIAGNOSTIC DATA: Chest x-ray was normal. Telemetry was reviewed, she is in sinus rhythm. ASSESSMENT: 1. Paroxysmal atrial fibrillation. 2. Bipolar disorder. PLAN: 1. We would continue current regimen. 2. She is completely asymptomatic. 3. She tried anticoagulation and this was too expensive. Currently, she is not that interested in warfarin as it has possible interactions with her antipsychotics. 4. We would continue current regimen for now. There is no significant QT prolongation on her EKG at this time. 5. She may be discharged home at any time from the cardiac perspective. 6. Follow up with Dr. Fried as previously scheduled. 7. Aspirin alone for stroke prophylaxis for now. Thank you for letting us to participate in the care of your patient. Job ID: [id number]
[2019-03-01] MEDS ORDERED: Atorvastatin Calcium 10 MG TAB PO SCH (21:00)
[2019-03-01 21:07] VITALS: BP 151/71; TEMP 98.1
[2019-03-02] MEDS ORDERED: Levothyroxine Sodium 100 MCG TAB PO SCH (06:00)
[2019-03-02] MEDS ORDERED: Furosemide 20 MG TAB PO SCH (09:00)
[2019-03-02] MEDS ORDERED: risperiDONE 1 MG TAB PO SCH (09:00)
[2019-03-02] MEDS ORDERED: Azithromycin 250 MG TAB PO SCH (09:00)
[2019-03-02] MEDS ORDERED: Atenolol 50 MG TAB PO SCH (09:00)
[2019-03-02] MEDS ORDERED: Losartan 25 MG TAB PO SCH (09:00)
[2019-03-02] MEDS ORDERED: Divalproex Sodium DR 500 MG TAB PO SCH (09:00)
[2019-03-02] MEDS ORDERED: Aspirin 325 mg Enteric Coated Tablet PO SCH (09:00)
--- NOTE | 2019-03-02 10:35 | PQF ---
DICTATED ADDENDUM TO DISCHARGE SUMMARY ON 03/02/2019 CLINICAL DOCUMENTATION IMPROVEMENT CLARIFICATION FORM: ICD-10 Updated PLEASE DO AN ADDENDUM TO THE PROGRESS NOTE WITH ANY DOCUMENTATION UPDATES OR ADDITIONS AND CARRY THROUGH TO DC SUMMARY. THANK YOU. DATE: 03/02/2019 ATTN: Dr. Collins Please exercise your independent, professional judgment in responding to the clarification form. Clinical indicators are provided on the bottom of this form for your review Please check appropriate box(s): HEART FAILURE: A. TYPE: [ ] Systolic / HFrEF [ ] Diastolic / HFpEF [ ] Combined Systolic / Diastolic [ ] Other diagnosis [ ] Unable to determine In addition, please specify: Present on Admission (POA): [ ] Yes [ ] No [ ] Unable to determine For continuity of documentation, please document condition throughout progress notes and discharge summary. Thank You. CLINICAL INDICATORS - SIGNS / SYMPTOMS / LABS ECHO 03/01: Ejection fraction is visually estimated at 55-60% Grade 2/3 diastolic dysfunction H&P 02/28: B-type natriuretic peptide was 489 Hx of congestive heart failure exacerbation. This is to be chronic. RISKS: H&P 03/01: Atrial fibrillation with rapid ventricular response. CKD stage 3, with GFR 36. Hx of CHF exacerbation. Controlled hypertension. TREATMENT: MAR: 03/01 Lasix 20 mg po daily MAR: 03/01 Cozaar 50 mg po daily Thank you, María (This form is maintained as a part of the permanent medical record) 2014 [employer]. All Rights Reserved María Poole RN, BSN [email or web address] Office: [phone] [facility]
--- NOTE | 2019-03-02 14:23 | DIS ---
DATE OF ADMISSION: 02/28/2019 DATE OF DISCHARGE: 03/02/2019 PRIMARY CARE PHYSICIAN: Elvia Chapman NP DISCHARGE DIAGNOSIS: Atrial fibrillation with rapid ventricular response. CONDITION OF PATIENT ON THE DAY OF DISCHARGE: Stable. I assessed Ms. Olivia on the day of discharge. She denies any chest pain or shortness of breath. Vital signs are stable. S1 and S2 are heard, regular. Lungs are clear to auscultation bilaterally. DISCHARGE MEDICATIONS: In addition to the medications dictated by Dr. Gann in his history and physical note dated March 01, 2019, she is being discharged on amiodarone 200 mg 2 times a day and aspirin 325 mg daily. CONSULTATIONS DURING THIS HOSPITALIZATION: Cardiology, Dr. Choe. HOSPITAL COURSE: Ms. Olivia is a pleasant 58-year-old lady, who was admitted to [facility] on February 28, 2019, for atrial fibrillation with rapid ventricular response. She spontaneously cardioverted to normal sinus rhythm. She was seen by Cardiology Service. She has been advised to be started on aspirin and amiodarone and follow up with her golf technician. She was not started on oral anticoagulation because of financial concerns. She will discuss with her golf technician regarding starting anticoagulation. She had a normal TSH during this hospitalization. Many thanks for allowing me to participate in your patient's care. Please feel free to contact me with any questions or concerns. DISCHARGE DESTINATION: Home. TIME SPENT: Total amount of time spent coordinating this discharge: 32 minutes. Job ID: [id number]
--- NOTE | 2019-03-03 09:46 | DIS ---
DATE OF ADMISSION: 02/28/2019 DATE OF DISCHARGE: 03/02/2019 ADDENDUM: Ms. Olivia' discharge diagnosis also includes chronic diastolic congestive heart failure, present on admission. Job ID: [id number]
== END 2019-03-02 00:02 | disposition home or self-care (01) | DRG 308 ==
LOC: ERS 15:46 → 2NO 20:14
PROVIDERS: ADMIT Emergency Medicine; ATTEND Emergency Medicine
DX: I48.0 Paroxysmal atrial fibrillation (principal); N18.6 End stage renal disease; I13.2 Hypertensive heart and chronic kidney disease with heart failure and with stage 5 chronic kidney disease, or end stage renal disease; F41.9 Anxiety disorder, unspecified; F31.9 Bipolar disorder, unspecified; E03.9 Hypothyroidism, unspecified; K21.9 Gastro-esophageal reflux disease without esophagitis; E78.5 Hyperlipidemia, unspecified; G20 Parkinson's disease; I50.9 Heart failure, unspecified; Z88.5 Allergy status to narcotic agent; Z98.51 Tubal ligation status; Z88.2 Allergy status to sulfonamides; Z88.0 Allergy status to penicillin; Z79.899 Other long term (current) drug therapy
CPT/HCPCS: 36415; 71045; 80053; 81003; 82140; 82550; 83690; 83880; 84443; 84484; 85025; 85379; 93005; 93306; 96365; 96375; 96376; J1160; J3010; J3475

== ENCOUNTER 2019-04-04 12:31 | Emergency (ER) | payer MEDICARE ==
[2019-04-04 13:26] LABS: PTT 47.9 SEC (22.9-36.1)
[2019-04-04 13:30] LABS: Prothrombin Time 44.8 SEC (12.0-14.7)
[2019-04-04 13:33] LABS: INR-International Normal Ratio 4.8
== END 2019-04-04 15:00 | disposition home or self-care (01) ==
LOC: ERS 12:31
DX: R79.1 Abnormal coagulation profile (principal); I48.91 Unspecified atrial fibrillation; E03.9 Hypothyroidism, unspecified; K21.9 Gastro-esophageal reflux disease without esophagitis; I11.0 Hypertensive heart disease with heart failure; I50.9 Heart failure, unspecified; F31.9 Bipolar disorder, unspecified; Z79.899 Other long term (current) drug therapy; Z79.01 Long term (current) use of anticoagulants; Z79.82 Long term (current) use of aspirin
CPT/HCPCS: 36415; 85610; 85730; 99283

== ENCOUNTER 2020-06-29 02:14 | Emergency (ER) | payer MEDICARE | END 2020-06-29 05:40 | disposition home or self-care (01) | LOC: ERS 02:14 | DX: N12 Tubulo-interstitial nephritis, not specified as acute or chronic (principal); I11.0 Hypertensive heart disease with heart failure; I50.9 Heart failure, unspecified; E03.9 Hypothyroidism, unspecified; K21.9 Gastro-esophageal reflux disease without esophagitis; G20 Parkinson's disease; I48.91 Unspecified atrial fibrillation; F31.9 Bipolar disorder, unspecified; Z79.899 Other long term (current) drug therapy | CPT/HCPCS: 99283 ==

== ENCOUNTER 2020-07-29 11:44 | Emergency (ER) | payer MEDICARE ==
[2020-07-29 12:38] LABS: ALT (SGPT) Less than 7 U/L (8-55); AST (SGOT) 10 U/L (5-34); Albumin 2.6 g/dL (3.5-5.0); Alkaline Phosphatase 54 U/L (40-110); Anion Gap 13 mmol/L (10-20); BUN (Urea Nitrogen) 33 mg/dL (9.8-20.1); Bilirubin, Total 0.3 mg/dL (0.2-1.2); Calc. Creatinine Clearance 0 mL/min (70-130); Calcium 8.3 mg/dL (7.8-10.44); Carbon Dioxide 20 mmol/L (22-29); Chloride 104 mmol/L (98-107); Estimated GFR-MDRD 22; Globulin 3.3 g/dL (2.4-3.5); Glucose 95 mg/dL (70-105); Potassium 3.5 mmol/L (3.5-5.1); Protein, Total 5.9 g/dL (6.0-8.3); Sodium 133 mmol/L (136-145)
--- NOTE | 2020-07-29 12:42 | CT ---
CT BRAIN WITHOUT CONTRAST: HISTORY: Fall, trauma to the head. Patient on anticoagulation Comparison 08/22/2011 FINDINGS: No evidence of acute infarct, hemorrhage, midline shift or abnormal extra-axial fluid collections is seen. The ventricular size is appropriate and the basilar cisterns are patent. The bony calvarium is intact. The visualized paranasal sinuses and mastoid air cells are well aerated. IMPRESSION: No CT evidence of acute intracranial process.
[2020-07-29 12:45] LABS: Band 22 % (5-11); Hemoglobin 10.1 g/dL (12.0-16.0); Lymphocytes 10 % (21-51); MDiff Complete? YES; Macrocytosis SLIGHT = 6-15 cells (100X) (0-5/hpf); Mean Corpuscular HGB CONC 32.3 g/dL (32.0-36.0); Mean Platelet Volume 8.2 fL (7.4-10.4); Metamyelocyte 1 % (0-0); Monocytes 18 % (0-10); Neutrophil 49 % (42-75); Platelet Count 88 thou/uL (130-400); Platelet Morphology Comment Appears Decreased; Polychromasia SLIGHT = 2-3 cells (100X) (0-2/hpf); RBC Distribution Width 13.1 % (11.5-14.5); Red Blood Cell (RBC) Count 2.98 mill/uL (4.20-5.40); White Blood Cell (WBC) Count 9.2 thou/uL (4.8-10.8)
[2020-07-29 12:47] LABS: Bacteria/HPF 4+ HPF (None Seen); Bilirubin Negative (Negative); Blood, Urine 2+ (Negative); Clarity Extra Turbid (Clear); Glucose, Urine (Dipstick) Normal (Negative); Ketone, Urine Negative (Negative); Leukocyte 500 Leu/uL (Negative); Nitrite Negative (Negative); Protein, Urine (Dipstick) 30 mg/dL (Neg-Trace); RBC/HPF Greater than 50 HPF (0-3); Specific Gravity, Urine 1.012 (1.002-1.036); Transitional Epithelial 0-3 HPF (None Seen); Urobilinogen Normal mg/dL (Less than 2); WBC/HPF Greater than 50 HPF (0-3); pH, Urine 5.5 (5.0-9.0)
[2020-07-29] MEDS ORDERED: Acetaminophen 500 MG TAB ONE (13:07)
--- NOTE | 2020-07-29 14:11 | PDOC.HHP ---
Hospitalist HPI - History of Present Illness Fall History of Present Illness: This is a 59-year-old female patient with a history of atrial fibrillation previously on apixaban, hypertension, hypercholesterolemia, GERD, bipolar disorder, stage III CKD and hypothyroidism who presents today after a fall at [facility]. Of note she was recently diagnosed with urinary tract infection/pyelonephritis 2 days ago for which she was unable to pick up man a antibiotics until today. She was also last discharged on 05/24/2020 from here having been managed from hematemesis and was also treated for UTI with E. coli growing in her urine. She was given Rocephin. According to her son she has had 3-4 diagnosis of urinary tract infections this year alone. She admits to dysuria frequency. Patient has severe bipolar disorder and movements limited by left hip arthritisambulates with a walker. She fell today hitting her chin on the walker. She was picked up by a motor vehicle escort driver. She had no associated palpitation, chest pain shortness of breath or dizziness or loss of consciousness in association with a fall. She denies any ongoing headaches. She bruised her right knee after the fall she has mild pain. This has been her first fall in the year. On arrival her blood pressure was 97/55, pulse 90, respiratory rate 19, te mperature 97.9 saturating 96% on room air. Labs showed turbid urine with 500 leukocytes, 2+ blood, greater than 50 red blood cells, greater than 50 WBCs bacteria 4+ however skin was also 7-10given her obesity sample collection was difficult with straight cath. CBC showed anemia of 10.1 which is around her baseline, MCV 105, bands 22 with WBC 9.2. Platelet count was decreased at 88 from a baseline of 120. She had hyponatremia of 133, creatinine 2.25 from a baseline of 2.08. Imaging showed CT head negative for acute intracranial process, chest x-ray showed mild cardiomegaly otherwise no acute cardiopulmonary processes. She was given 1 L normal saline, 1 g acetaminophen, Levaquin for coverage of UTI. Initial decision was to send her home however family was reluctant for her to go back, as she lives on her own and also given treatment failure for recent UTI. Hospitalist team was consulted for admission. Hospitalist ROS - Review of Systems Constitutional: denies: fever, chills, sweats, weakness Respiratory: denies: cough, shortness of breath, hemoptysis, SOB with excertion Cardiovascular: denies: chest pain, palpitations, orthopnea, paroxysmal noc. dyspnea Genitourinary: reports: dysuria, frequency - Medication Medications: Medications: Currently refer to ambulatory med list. Allergies: Codeine Hospitalist History - Past Medical History Cardiac: reports: AFIB, HTN Other Medical History: Obesity - Past Surgical History Other Surgical History: Bilateral tubal ligation - Family History Family History: reports: hypertension - Social History Smoking Status: Never smoker Alcohol: reports: None Living Situation: Alone - Exam General Appearance: awake alert General - other findings: Pleasant, in no acute distress. Morbidly obese Neck: supple, symmetric, no JVD, no lymphadenopathy Heart: RRR, no murmur, no gallops, no rubs Respiratory: no wheezes, no rales, no ronchi, no tachypnea Gastrointestinal: soft, non-tender, non-distended, normal bowel sounds, no palpable masses Extremities: no cyanosis, no clubbing, 1+ LE edema Extremities - other findings: Right knee bruits Neurological: cranial nerve grossly intact, no focal deficits Psychiatric: normal affect, A&O x 3 Hospitalist Results - Labs Result Diagrams: 07/29/20 12:10 07/29/20 12:10 Lab results: WBC 9.2 thou/uL (4.8-10.8) 07/29/20 12:10 Hgb 10.1 g/dL (12.0-16.0) L 07/29/20 12:10 Hct 31.3 % (36.0-47.0) L 07/29/20 12:10 MCV 105.0 fL (78.0-98.0) H 07/29/20 12:10 Plt Count 88 thou/uL (130-400) L 07/29/20 12:10 Band Neuts % (Manual) 22 % (5-11) H 07/29/20 12:10 Sodium 133 mmol/L (136-145) L 07/29/20 12:10 Potassium 3.5 mmol/L (3.5-5.1) 07/29/20 12:10 Chloride 104 mmol/L (98-107) 07/29/20 12:10 Carbon Dioxide 20 mmol/L (22-29) L 07/29/20 12:10 BUN 33 mg/dL (9.8-20.1) H 07/29/20 12:10 Creatinine 2.25 mg/dL (0.6-1.1) H 07/29/20 12:10 Glucose 95 mg/dL (70-105) 07/29/20 12:10 Calcium 8.3 mg/dL (7.8-10.44) 07/29/20 12:10 Total Bilirubin 0.3 mg/dL (0.2-1.2) 07/29/20 12:10 AST 10 U/L (5-34) 07/29/20 12:10 ALT Less than 7 U/L (8-55) L 07/29/20 12:10 Alkaline Phosphatase 54 U/L (40-110) 07/29/20 12:10 Troponin I Less than 0.010 ng/mL (< 0.028) 07/29/20 12:10 Serum Total Protein 5.9 g/dL (6.0-8.3) L 07/29/20 12:10 Albumin 2.6 g/dL (3.5-5.0) L 07/29/20 12:10 Urine Ketones Negative mg/dL (Negative) 07/29/20 12:30 Urine Blood 2+ (Negative) A 07/29/20 12: Urine Nitrite Negative (Negative) 07/29/20 12:30 Ur Leukocyte Esterase 500 Amie/uL (Negative) A 07/29/20 12:30 Urine RBC Greater than 50 HPF (0-3) A 07/29/20 12:30 Urine WBC Greater than 50 HPF (0-3) A 07/29/20 12:30 Ur Squamous Epith Cells 7-10 HPF (0-3) A 07/29/20 12:30 Urine Bacteria 4+ HPF (None Seen) A 07/29/20 12:30 Hospitalist H&P A/P - Plan Plan: This is a 59-year-old female patient with history of A. fib, hypertension and recurrent urinary tract infections presenting today on account of a fall and UTI. Recurrent UTI We will continue on levofloxacin Follow-up on cultures May need long-term prophylaxis after this episode. IV fluids. Thrombocytopenia Improved from 76 on 07/28/2288 today Monitor CBC. Atrial fibrillation Not in RVR Patient was on Eliquis however said she did discontinued She has a high fall riskfall on this admission We will observe Continue with aspirin Cardiology consultedappreciate input on long-term anticoagulation. Fall First fall in the year She bruised her right kneewe will x-ray Fall precautions PT OT Assess for placement Bipolar disorder Continue medications once verified. CKD VT prophylaxisSCDs given thrombocytopenia. Can resume once platelet improved CODE STATUSfull code
[2020-07-29] MEDS ORDERED: Ondansetron ODT 4 MG TAB PO PRN (21:51)
[2020-07-29] MEDS ORDERED: Ondansetron PF 4 MG/2 ML Vial IVP PRN (21:51)
[2020-07-29] MEDS ORDERED: Sodium Chloride 0.9% 1,000 ML IV SCH ×2 (22:15→22:30)
[2020-07-30] MEDS ORDERED: Enoxaparin Sodium 40 MG/0.4 ML SYRINGE SC SCH (09:00)
== END 2020-07-29 20:42 ==
LOC: ERS 11:44
DX: N10 Acute pyelonephritis (principal); R53.1 Weakness; E03.9 Hypothyroidism, unspecified; I11.0 Hypertensive heart disease with heart failure; I50.9 Heart failure, unspecified; G20 Parkinson's disease; K21.9 Gastro-esophageal reflux disease without esophagitis; E78.5 Hyperlipidemia, unspecified; I48.91 Unspecified atrial fibrillation
CPT/HCPCS: 36415; 70450; 80053; 81003; 81015; 84484; 85025; 93005; 96365; J1956

== ENCOUNTER 2020-10-18 06:03 | Inpatient (IN) | payer MEDICARE, OTHER ==
[2020-10-18 08:09] LABS: ALT (SGPT) Less than 7 U/L (8-55); AST (SGOT) 7 U/L (5-34); Albumin 2.4 g/dL (3.5-5.0); Alkaline Phosphatase 51 U/L (40-110); Anion Gap 17 mmol/L (10-20); BUN (Urea Nitrogen) 20 mg/dL (9.8-20.1); Bilirubin, Total 0.2 mg/dL (0.2-1.2); Calc. Creatinine Clearance 0 mL/min (70-130); Calcium 8.9 mg/dL (7.8-10.44); Carbon Dioxide 13 mmol/L (22-29); Chloride 110 mmol/L (98-107); Globulin 3.7 g/dL (2.4-3.5); Glucose 96 mg/dL (70-105); Protein, Total 6.1 g/dL (6.0-8.3); Sodium 136 mmol/L (136-145)
[2020-10-18] MEDS ORDERED: Acetaminophen 650 MG Suppository PR PRN (09:15)
--- NOTE | 2020-10-18 09:26 | PDOC.HHP ---
Hospitalist HPI - History of Present Illness Urinary symptoms History of Present Illness: Ms. Olivia is a 60-year-old female with past medical history of atrial fibrillation on amiodarone (no anticoagulation secondary to GI bleeds), hypertension, hyperlipidemia, GERD, bipolar disorder, CKD stage III, hyp othyroidism, congestive heart failure, Parkinson's dementia, congenital hip dysplasia who initially presented to [facility] for urinary symptoms and concerns for UTI. Patient reports that her urinary symptoms and suprapubic pain began a few days ago with foul-smelling urine, suprapubic pain, increased urinary frequency, and dysuria. Patient has a history of recurrent urinary tract infections. Patient also and endorsed weakness, malaise, subjective fevers. She denies flank pain. She denies chest pain, shortness of breath. Denies nausea vomiting diarrhea. Denies melena, hematochezia, hematemesis. Denies numbness weakness or paresthesias. Emergency room initial vital signs 113/65, 68, 20, 100.2, 98% on room air. UA grossly positive. Lactic acid 2.7. WBC 13.8. H/H 12.7/30.2. Platelets 108. BUN/CR 20/1.90. Sodium 136, potassium 4.0, glucose 96. Patient received ceftriaxone, vancomycin as well as 2 L normal saline before being transferred to [facility] emergency room. Patient admitted to hospital service for further management of her UTI and associated sepsis. Hospitalist ROS - Review of Systems Constitutional: reports: fever, chills, weakness, malaise Eyes: denies: pain, vision change, conjunctivae inflammation, eyelid inflammation, redness, other ENT: denies: ear pain, ear discharge, nose pain, nose discharge, nose congestion, mouth pain, mouth swelling, throat pain, throat swelling, other Respiratory: denies: cough, dry, shortness of breath, hemoptysis, SOB with excertion, pleuritic pain, sputum, wheezing, other Cardiovascular: denies: chest pain, palpitations, orthopnea, paroxysmal noc. dyspnea, edema, light headedness, other Gastrointestinal: reports: abdominal pain. denies: nausea, vomiting, diarrhea, constipation, melena, hematochezia, other Genitourinary: reports: dysuria, frequency, incontinence. denies: hematuria, retention Musculoskeletal: denies: neck pain, shoulder pain, arm pain, back pain, hand pain, leg pain, foot pain, other Skin: denies: rash, lesions, les, bruising, other Neurological: denies: weakness, numbness, incoordination, change in speech, confusion, seizures, other - Medication Medications: Home medications include Aspirin Levothyroxine Pantoprazole Pravastatin Risperidone Amiodarone Atenolol Benztropine Divalproex Losartan Tylenol arthritis Allergies to codeine and penicillins Hospitalist History - Past Medical History Other Medical History: Past medical history of Atrial fibrillation on amiodarone (formally on Eliquis, which was DC'd secondary to GI bleeds) Hypertension Hyperlipidemia GERD Bipolar disorder CKD stage III Hypothyroidism CHF Parkinson's dementia Congenital hip dysplasia - Past Surgical History Other Surgical History: Past surgical history includes Tubal ligation Right hip fusion Breast biopsy - Family History Other Family History: No pertinent family history - Social History Smoking Status: Never smoker Alcohol: reports: None Drugs: reports: none Living Situation: Alone Activity level: uses cane/walker - Exam General Appearance: NAD, awake alert, ill appearing Eye: PERRL, anicteric sclera ENT: normocephalic atraumatic, no oropharyngeal lesions, moist mucosa Neck: supple, symmetric, no JVD, no thyromegaly, no lymphadenopathy, no carotid bruit Heart: RRR, no murmur, no gallops, no rubs, normal peripheral pulses Respiratory: CTAB, no wheezes, no rales, no ronchi, normal chest expansion, no tachypnea, normal percussion Gastrointestinal: soft, non-distended, no palpable masses, no hepatomegaly, no guarding, no rigidity Gastrointestinal - other findings: TTP in suprapubic region, no CVA tenderness Extremities - other findings: Chronic venous stasis changes, trace edema Skin: normal turgor, no lesions, no rashes Neurological: cranial nerve grossly intact, normal sensation to touch, no weakness, no focal deficits, no new deficit Musculoskeletal: normal tone, normal strength, no muscle wasting Psychiatric: normal affect, normal behavior, A&O x 3 Hospitalist Results - Labs Result Diagrams: 10/22/20 05:24 10/22/20 05:24 Lab results: Sodium 136 mmol/L (136-145) 10/18/20 07:40 Potassium 4.0 mmol/L (3.5-5.1) 10/18/20 07:40 Chloride 110 mmol/L (98-107) H 10/18/20 07:40 Carbon Dioxide 13 mmol/L (22-29) L 10/18/20 07:40 BUN 20 mg/dL (9.8-20.1) 10/18/20 07:40 Creatinine 1.90 mg/dL (0.6-1.1) H 10/18/20 07:40 Glucose 96 mg/dL (70-105) 10/18/20 07:40 Lactic Acid 1.5 mmol/L (0.5-2.2) 10/18/20 07:40 Calcium 8.9 mg/dL (7.8-10.44) 10/18/20 07:40 Total Bilirubin 0.2 mg/dL (0.2-1.2) 10/18/20 07:40 AST 7 U/L (5-34) 10/18/20 07:40 ALT Less than 7 U/L (8-55) L 10/18/20 07:40 Alkaline Phosphatase 51 U/L (40-110) 10/18/20 07:40 Serum Total Protein 6.1 g/dL (6.0-8.3) 10/18/20 07:40 Albumin 2.4 g/dL (3.5-5.0) L 10/18/20 07:40 Hospitalist H&P A/P - Plan Plan: 60-year-old female with past medical history of A. fib on amiodarone, GI bleeds, GERD, hypertension, hyperlipidemia, bipolar disorder, CKD stage III, CHF, hypothyroidism, Parkinson's dementia, congenital dysplasia of the hip presents with weakness, malaise, 3 days of worsening urinary symptoms found to have UTI with sepsis. Urinary tract infection Urinary symptoms for 3 days with frequency, dysuria, suprapubic pain. Urine obtained on straight cath grossly purulent. UA grossly positive. WBC 13.8. Lactic acid 2.7. Febrile to 100.2. No CVA tenderness. BUNs/CR 20/1.0. History of UTIs. Patient received ceftriaxone and vancomycin at outside hospital. We will continue antibiotics and await urine cultures. Plan Continue IV ceftriaxone, vancomycin Follow urine cultures Trend white blood cell, lactic acid, fever curve Sepsis without septic shock Patient meets sepsis criteria with elevated white blood cell count, tachypnea, tachycardia, elevated lactic acid. Patient septic secondary to urinary tract infection. No altered mental status. ANO x4. Blood pressure soft, but stable 110s over 65. Patient received IV fluids, ceftriaxone and vancomycin at outside hospital. Lactic acid down trending from 2.7-1.5. Plan Continue IV antibiotics and plan as above Gentle IV fluids Follow urine cultures, blood cultures Trend WBC, lactic acid, fever curve Close monitoring of blood pressure Atrial fibrillation History of atrial fibrillation. Follows with Dr. Fried. Was previously on Eliquis, however this was discontinued secondary to GIBs. Patient in normal sinus rhythm with normal ventricular rate currently. We will continue home amio darone and atenolol. Plan Continue amiodarone, atenolol Congestive heart failure History of CHF. Echocardiogram from February 2019 shows an EF of 55 to 60% with diastolic dysfunction as well as a small PFO/ASD with [id number] shunting. Patient reports that she previously was taking Lasix, however this was discontinued a few months ago. Patient does not appears dry on exam, with clear lung sounds and only trace lower extremity edema. Patient fluid resuscitated secondary to sepsis in emergency room. We will closely monitor fluid status. Plan Continue home beta-sawyer, hold home ARB secondary to sepsis. Closely monitor fluid status Daily weights, I/O Acute kidney injury superimposed on chronic kidney disease History of CKD. On review of records it appears baseline creatinine approximately 1.4. BUN/CR 20/1.90. Patient receiving IV fluids per sepsis protocol. We will closely monitor. Plan Trend kidney function Gentle IV fluids Avoid nephrotoxic agents were possible Renal dosing as appropriate Hypothyroidism We will continue home levothyroxine and check TSH Hypertension We will hold home losartan at this time secondary to sepsis and titrate antihypertensives as needed. Hyperlipidemia Continue home pravastatin Bipolar disorder History of bipolar disorder on Depakote, Risperdal, benztropine. We will continue home meds. Patient's mood appears stable and affect is congruent. Denies SI/HI at this time. GERD We will continue home pantoprazole Thrombocytopenia Platelet level 108. On review of records appears this is chronic. Recommend patient follow-up with her primary care provider as an outpatient. DVT prophylaxis SQ heparin Full code Case discussed with attending physician, Dr. Navarrete.
[2020-10-18] MEDS ORDERED: Vancomycin 1 GM in Premix Bag 1 BAG IVPB SCH (09:30)
--- NOTE | 2020-10-18 09:51 | RAD ---
Portable frontal chest radiograph: 10/18/2020 COMPARISON: 07/30/2020 HISTORY: Short of breath FINDINGS: Lungs are clear. Heart and mediastinal contours appear within normal limits. IMPRESSION: No acute findings.
[2020-10-18] MEDS: Sodium Chloride 0.9% 1,000 ML IV SCH (10:55)
[2020-10-18 11:20] VITALS: BMI 38.7
[2020-10-18] MEDS: Vancomycin HCl 1.25 GM in Sodium Chloride 0.9% 250 ML 250 ML IVPB SCH (13:32)
[2020-10-18] MEDS: Heparin 5,000 UNITS/ML VIAL SC SCH ×2 (14:08→21:00)
[2020-10-18] MEDS: Acetaminophen 325 MG TAB PO PRN ×2 (14:30→21:45)
[2020-10-18] MEDS: traMADol HCl 50 MG TAB PO PRN (14:31)
[2020-10-18] MEDS: Amiodarone 200 MG TAB PO SCH (20:59)
[2020-10-18] MEDS: Benztropine 1 MG TAB PO SCH (20:59)
[2020-10-18] MEDS: Atorvastatin Calcium 10 MG TAB PO SCH (20:59)
[2020-10-18] MEDS ORDERED: Divalproex Sodium 250 MG (DR) TAB PO SCH (21:00)
[2020-10-18] MEDS: Divalproex Sodium DR 500 MG TAB PO SCH (21:00)
[2020-10-19] MEDS: cefTRIAXone\\ROCEPHIN 2 GM in Sodium Chloride 0.9% 100 ML IVPB SCH (03:59)
[2020-10-19] MEDS: Sodium Chloride 0.9% 1,000 ML IV SCH ×2 (04:00→13:19)
[2020-10-19] MEDS: Levothyroxine Sodium 100 MCG TAB PO SCH (05:24)
[2020-10-19 06:18] LABS: Anion Gap 15 mmol/L (10-20); BUN (Urea Nitrogen) 23 mg/dL (9.8-20.1); Calc. Creatinine Clearance 56 mL/min (70-130); Calcium 8.4 mg/dL (7.8-10.44); Carbon Dioxide 15 mmol/L (22-29); Chloride 110 mmol/L (98-107); Glucose 74 mg/dL (70-105); Potassium 3.8 mmol/L (3.5-5.1); Sodium 136 mmol/L (136-145)
[2020-10-19 06:50] LABS: Band 22 % (5-11); Hemoglobin 9.5 g/dL (12.0-16.0); Lymphocytes 22 % (21-51); MDiff Complete? YES; Mean Corpuscular Hemoglobin 36.2 pg (27.0-31.0); Mean Platelet Volume 7.9 fL (7.4-10.4); Monocytes 11 % (0-10); Neutrophil 45 % (42-75); Platelet Count 77 thou/uL (130-400); Platelet Morphology Comment Appears Decreased; RBC Distribution Width 13.5 % (11.5-14.5); Red Blood Cell (RBC) Count 2.61 mill/uL (4.20-5.40); White Blood Cell (WBC) Count 11.3 thou/uL (4.8-10.8)
--- NOTE | 2020-10-19 08:08 | PDOC.HOSPP ---
- Subjective Encounter Date: 10/19/20 Encounter Time: 08:07 Subjective: Patient lying in bed, resting with eye closed upon arrival. Easily arousable, alert and oriented x3. Denies any complaints at this time. She reports no overnight events. Patient states she feels better today, than yesterday. Reports overall malaise. Repositioned to left side lying in bed per patient request. Chart and medications reviewed. - Objective Vital Signs & Weight: Vital Signs (12 hours) Temp Pulse Resp BP Pulse Ox 10/19/20 04:09 98.3 F 63 19 101/61 95 10/18/20 23:31 98.4 F 62 16 127/85 94 L Weight Weight 205 lb I&O: 10/18/20 10/19/20 10/20/20 06:59 06:59 06:59 Intake Total 2255 Output Total 200 Balance 5 Result Diagrams: 10/19/20 05:28 10/19/20 05:28 Hospitalist ROS - Review of Systems Constitutional: reports: weakness. denies: fever, chills Cardiovascular: denies: chest pain, palpitations, orthopnea, paroxysmal noc. dyspnea, edema, light headedness, other Gastrointestinal: denies: nausea, vomiting, abdominal pain, diarrhea, constipation, melena, hematochezia, other Genitourinary: reports: other (urinary catheter in place. Patient denies flank pain.) Musculoskeletal: denies: other (CVA tenderness) Skin: denies: rash, lesions, les, bruising, other Neurological: reports: weakness. denies: numbness, incoordination, change in speech, confusion, seizures (generalized weakness), other - Medication Medications: Active Medications Generic Name Dose Route Start Last Admin Trade Name Freq PRN Reason Stop Dose Admin Acetaminophen 650 mg 10/18/20 09:15 10/18/20 21:45 Acetaminophen 325 Mg Tab PO 650 mg Q4H PRN Administration Headache/Fever/Mild Pain (1-3) Amiodarone HCl 200 mg 10/18/20 21:00 10/18/20 20:59 Amiodarone 200 Mg Tab PO 200 mg BID KYLEIGH Administration Atorvastatin Calcium 10 mg 10/18/20 21:00 10/18/20 20:59 Atorvastatin Calcium 10 Mg Tab PO 10 mg HS KYLEIGH Administration Benztropine Mesylate 1 mg 10/18/20 21:00 10/18/20 20:59 Benztropine 1 Mg Tab PO 1 mg BID KYLEIGH Administration Divalproex Sodium 1,000 mg 10/18/20 21:00 10/18/20 21:[address] 500 Mg Tab PO 1,000 mg QPM KYLEIGH Administration Heparin Sodium (Porcine) 5,000 units 10/18/20 15:00 10/18/20 21:00 Heparin 5,000 Units/Ml Vial SC 5,000 units TID KYLEIGH Administration Ceftriaxone Sodium 2 gm/ 100 mls @ 200 mls/hr 10/19/20 03:00 10/19/20 03:59 Sodium Chloride IVPB 100 mls 0300 KYLEIGH Administration Sodium Chloride 1,000 mls @ 75 mls/hr 10/18/20 10:00 10/19/20 04:00 Normal Saline 0.9% IV 1,000 mls .[id number] KYLEIGH Administration Vancomycin HCl 1.25 gm/ Sodium 250 mls @ 166.667 mls/hr 10/18/20 14:00 10/18/20 13:32 Chloride IVPB 250 mls Q24HR KYLEIGH Administration Levothyroxine Sodium 100 mcg 10/19/20 06:00 10/19/20 05:24 Levothyroxine Sodium 100 Mcg Tab PO 100 mcg 0600 KYLEIGH Administration Tramadol HCl 50 mg 10/18/20 14:03 10/18/20 14:31 Tramadol Hcl 50 Mg Tab PO 50 mg BIDPRN PRN Administration Moderate to Severe Pain (6-10) - Exam General Appearance: NAD General - other findings: sleeping upon arrival, easily arousable. alert and oriented. Heart: RRR, no murmur, no gallops, no rubs, normal peripheral pulses Respiratory: CTAB, no wheezes, no rales, no ronchi, normal chest expansion, no tachypnea, normal percussion Gastrointestinal: soft, non-tender, non-distended, normal bowel sounds, no palpable masses, no hepatomegaly, no splenomegaly, no bruit Neurological: cranial nerve grossly intact, normal sensation to touch, no weakness, no focal deficits, no new deficit Musculoskeletal: generalized weakness Psychiatric: normal affect, normal behavior, A&O x 3 Hosp A/P - Plan old records reviewed/req, aguirre catheter, continue antibiotics 60-year-old female with past medical history of A. fib on amiodarone, GI bleeds, GERD, hypertension, hyperlipidemia, bipolar disorder, CKD stage III, CHF, hypothyroidism, Parkinson's dementia, congenital dysplasia of the hip presents with weakness, malaise, 3 days of worsening urinary symptoms found to have UTI with sepsis. Urinary tract infection Urinary symptoms for 3 days with frequency, dysuria, suprapubic pain. Urine obtained on straight cath grossly purulent. UA grossly positive. WBC 13.8. Lactic acid 2.7. Febrile to 100.2. No CVA tenderness. BUNs/CR 20/1.0. History of UTIs. Patient received ceftriaxone and vancomycin at outside hospital. We will continue antibiotics and await urine cultures. Plan Continue IV ceftriaxone, vancomycin Follow urine cultures Trend white blood cell, lactic acid, fever curve Sepsis without septic shock Patient meets sepsis criteria with elevated white blood cell count, tachypnea, tachycardia, elevated lactic acid. Patient septic secondary to urinary tract infection. No altered mental status. ANO x4. Blood pressure soft, but stable 110s over 65. Patient received IV fluids, ceftriaxone and vancomycin at outside hospital. Lactic acid down trending from 2.7-1.5. Plan Continue IV antibiotics and plan as above Gentle IV fluids Follow urine cultures, blood cultures Trend WBC, lactic acid, fever curve Close monitoring of blood pressure Atrial fibrillation History of atrial fibrillation. Follows with Dr. Fried. Was previously on Eliquis, however this was discontinued secondary to GIBs. Patient in normal sinus rhythm with normal ventricular rate currently. We will continue home amiodarone and atenolol. Plan Continue amiodarone, atenolol Congestive heart failure History of CHF. Echocardiogram from February 2019 shows an EF of 55 to 60% with diastolic dysfunction as well as a small PFO/ASD with [id number] shunting. Patient reports that she previously was taking Lasix, however this was discontinued a few months ago. Patient does not appears dry on exam, with clear lung sounds and only trace lower extremity edema. Patient fluid resuscitated secondary to sepsis in emergency room. We will closely monitor fluid status. Plan Continue home beta-sawyer, hold home ARB secondary to sepsis. Closely monitor fluid status Daily weights, I/O Acute kidney injury superimposed on chronic kidney disease History of CKD. On review of records it appears baseline creatinine approximately 1.4. BUN/CR 20/1.90. Patient receiving IV fluids per sepsis protocol. We will closely monitor. Plan Trend kidney function Gentle IV fluids Avoid nephrotoxic agents were possible Renal dosing as appropriate Hypothyroidism We will continue home levothyroxine and check TSH Hypertension We will hold home losartan at this time secondary to sepsis and titrate antihypertensives as needed. Hyperlipidemia Continue home pravastatin Bipolar disorder History of bipolar disorder on Depakote, Risperdal, benztropine. We will continue home meds. Patient's mood appears stable and affect is congruent. Denies SI/HI at this time. GERD We will continue home pantoprazole Thrombocytopenia Platelet level 108. On review of records appears this is chronic. Recommend patient follow-up with her primary care provider as an outpatient. DVT prophylaxis SQ heparin Full code
[2020-10-19] MEDS: Heparin 5,000 UNITS/ML VIAL SC SCH ×3 (08:32→16:38)
[2020-10-19] MEDS: Divalproex Sodium DR 500 MG TAB PO SCH ×2 (08:33→21:07)
[2020-10-19] MEDS: Benztropine 1 MG TAB PO SCH ×2 (08:33→21:07)
[2020-10-19] MEDS: Amiodarone 200 MG TAB PO SCH ×2 (08:33→21:07)
[2020-10-19] MEDS: risperiDONE 1 MG TAB PO SCH (08:33)
[2020-10-19] MEDS: Atenolol 25 MG TAB PO SCH (08:33)
[2020-10-19] MEDS ORDERED: Divalproex Sodium 250 MG (DR) TAB PO SCH (09:00)
[2020-10-19] MEDS: Vancomycin HCl 1.25 GM in Sodium Chloride 0.9% 250 ML 250 ML IVPB SCH (14:42)
[2020-10-19] MEDS: Atorvastatin Calcium 10 MG TAB PO SCH (21:07)
[2020-10-19] MEDS: traMADol HCl 50 MG TAB PO PRN (21:07)
[2020-10-19] MEDS: Acetaminophen 325 MG TAB PO PRN (21:08)
--- NOTE | 2020-10-19 21:58 | RAD ---
ABDOMEN ONE VIEW: 10/19/20 HISTORY: No bowel movement for one week. FINDINGS/IMPRESSION: The bowel gas pattern is unremarkable. There is fecal material in the rectosigmoid. There are degener ative changes in the left hip joint and fusion of the right hip joint also seen on the exam of 0. POS: OFF
[2020-10-20 02:34] LABS: Bilirubin Negative (Negative); Blood, Urine 1+ (Negative); Clarity Turbid (Clear); Glucose, Urine (Dipstick) Normal (Negative); Ketone, Urine Negative (Negative); Leukocyte 500 Leu/uL (Negative); Nitrite Negative (Negative); Protein, Urine (Dipstick) Negative (Neg-Trace); Specific Gravity, Urine 1.004 (1.002-1.036); Squamous Epithelial 0-3 HPF (0-3); Urobilinogen Normal mg/dL (Less than 2); WBC/HPF Greater than 50 HPF (0-3)
[2020-10-20 02:35] LABS: Bacteria/HPF 1+ HPF (None Seen)
[2020-10-20] MEDS: cefTRIAXone\\ROCEPHIN 2 GM in Sodium Chloride 0.9% 100 ML IVPB SCH (02:41)
[2020-10-20] MEDS: Acetaminophen 325 MG TAB PO PRN ×2 (02:42→15:57)
[2020-10-20 02:47] LABS: Urine Culture Reflex Yes Yes
[2020-10-20] MEDS: Sodium Chloride 0.9% 1,000 ML IV SCH (02:48)
[2020-10-20] MEDS: Levothyroxine Sodium 100 MCG TAB PO SCH (05:15)
[2020-10-20 05:53] LABS: #Eosinphils 0.1 thou/uL (0.0-0.7); #Lymphocytes 2.3 thou/uL (1.20-3.40); #Neutrophils 4.3 thou/uL (1.40-6.50); %Basophils 0.1 % (0.0-1.0); %Lymphocytes 30.1 % (21.0-51.0); %Monocytes 13.4 % (0.0-10.0); %Neutrophils 55.6 % (42.0-75.0); Hemoglobin 8.9 g/dL (12.0-16.0); Mean Corpuscular HGB CONC 33.8 g/dL (32.0-36.0); Mean Corpuscular Hemoglobin 35.2 pg (27.0-31.0); Mean Platelet Volume 7.8 fL (7.4-10.4); Platelet Count 82 thou/uL (130-400); RBC Distribution Width 13.4 % (11.5-14.5); Red Blood Cell (RBC) Count 2.53 mill/uL (4.20-5.40); White Blood Cell (WBC) Count 7.7 thou/uL (4.8-10.8)
[2020-10-20 06:03] LABS: Anion Gap 10 mmol/L (10-20); BUN (Urea Nitrogen) 18 mg/dL (9.8-20.1); Calc. Creatinine Clearance 71 mL/min (70-130); Calcium 8.3 mg/dL (7.8-10.44); Carbon Dioxide 17 mmol/L (22-29); Chloride 110 mmol/L (98-107); Glucose 72 mg/dL (70-105); Potassium 3.4 mmol/L (3.5-5.1); Sodium 134 mmol/L (136-145)
--- NOTE | 2020-10-20 08:45 | PDOC.HOSPP ---
- Subjective Encounter Date: 10/20/20 Encounter Time: 08:43 Subjective: Patient lying in bed resting with eyes closed, appears to be resting, easily arousable. Patient states she slept better last night and feels like she is improving this morning. Denies any events that occurred last night. States she lives at home with son, patient states she ambulates with a walker at home and needs assistance transferring. currently receives home health but is unable to specify what company it is with. Patient is 100% on RA, currently received IV fluids. Preston catheter shows to have 200 ml of clear urine present. - Objective Vital Signs & Weight: Vital Signs (12 hours) Temp Pulse Resp BP Pulse Ox 10/20/20 07:27 97.6 F 54 L 14 121/82 99 10/20/20 03:06 98.1 F 57 L 14 107/68 99 10/19/20 23:02 98.2 F 82 16 105/58 L 97 10/19/20 21:05 98 Weight Weight 205 lb I&O: 10/19/20 10/20/20 10/21/20 06:59 06:59 06:59 Intake Total 2255 1700 Output Total 200 2025 Balance 2055 -325 Result Diagrams: 10/20/20 05:07 10/20/20 05:07 Additional Labs: WBC down from 11.3 to 7.7. GFR improved from 27 to 43. Hospitalist ROS - Review of Systems Constitutional: denies: fever, chills, sweats Eyes: denies: pain, vision change, conjunctivae inflammation ENT: denies: ear pain, ear discharge, nose pain Respiratory: denies: cough, dry, shortness of breath Cardiovascular: denies: chest pain, palpitations, orthopnea, edema Gastrointestinal: denies: nausea, vomiting, abdominal pain Genitourinary: denies: dysuria, frequency, hematuria Musculoskeletal: denies: neck pain, shoulder pain, back pain Skin: denies: rash, lesions Neurological: denies: weakness, numbness All other systems reviewed; all pertinent +/- noted in HPI/Subj - Medication Medications: Active Medications Generic Name Dose Route Start Last Admin Trade Name Freq PRN Reason Stop Dose Admin Acetaminophen 650 mg 10/18/20 09:15 10/20/20 02:42 Acetaminophen 325 Mg Tab PO 650 mg Q4H PRN Administration Headache/Fever/Mild Pain (1-3) Amiodarone HCl 200 mg 10/18/20 21:00 10/19/20 21:07 Amiodarone 200 Mg Tab PO 200 mg BID KYLEIGH Administration Atenolol 50 mg 10/19/20 09:00 10/19/20 08:33 Atenolol 25 Mg Tab PO 50 mg DAILY KYLEIGH Administration Atorvastatin Calcium 10 mg 10/18/20 21:00 10/19/20 21:07 Atorvastatin Calcium 10 Mg Tab PO 10 mg HS KYLEIGH Administration Benztropine Mesylate 1 mg 10/18/20 21:00 10/19/20 21:07 Benztropine 1 Mg Tab PO 1 mg BID KYLEIGH Administration Divalproex Sodium 1,000 mg 10/18/20 21:00 10/19/20 21:[address] 500 Mg Tab PO 1,000 mg QPM KYLEIGH Administration Divalproex Sodium 500 mg 10/19/20 09:00 10/19/20 08:[address] 500 Mg Tab PO 500 mg QAM KYLEIGH Administration Ceftriaxone Sodium 2 gm/ 100 mls @ 200 mls/hr 10/19/20 03:00 10/20/20 02:41 Sodium Chloride IVPB 100 mls 0300 KYLEIGH Administration Sodium Chloride 1,000 mls @ 75 mls/hr 10/18/20 10:00 10/20/20 02:48 Normal Saline 0.9% IV 1,000 mls .[id number] KYLEIGH Administration Vancomycin HCl 1.25 gm/ Sodium 250 mls @ 166.667 mls/hr 10/18/20 14:00 10/19/20 14:42 Chloride IVPB 250 mls Q24HR KYLEIGH Administration Levothyroxine Sodium 100 mcg 10/19/20 06:00 10/20/20 05:15 Levothyroxine Sodium 100 Mcg Tab PO 100 mcg 0600 KYLEIGH Administration Pantoprazole Sodium 40 mg 10/19/20 09:00 10/19/20 08:33 Pantoprazole 40 Mg Tab PO 40 mg DAILY KYLEIGH Administration Risperidone 1 mg 10/19/20 09:00 10/19/20 08:33 Risperidone 1 Mg Tab PO 1 mg DAILY KYLEIGH Administration Tramadol HCl 50 mg 10/18/20 14:03 10/19/20 21:07 Tramadol Hcl 50 Mg Tab PO 50 mg BIDPRN PRN Administration Moderate to Severe Pain (6-10) - Exam General Appearance: NAD, awake alert Eye: PERRL, anicteric sclera ENT: normocephalic atraumatic, no oropharyngeal lesions, moist mucosa Neck: supple, symmetric, no JVD, no thyromegaly, no lymphadenopathy, no carotid bruit Heart: RRR, no murmur, no gallops, no rubs, normal peripheral pulses Respiratory: CTAB, no wheezes, normal chest expansion Gastrointestinal: soft, non-tender, non-distended, normal bowel sounds Skin: normal turgor, no lesions, no rashes Neurological: cranial nerve grossly intact, normal sensation to touch, no weakness, no focal deficits, no new deficit Musculoskeletal: normal tone, normal strength Psychiatric: normal affect, normal behavior, A&O x 3 Hosp A/P - Plan old records reviewed/req 60-year-old female with past medical history of A. fib on amiodarone, GI bleeds, GERD, hypertension, hyperlipidemia, bipolar disorder, CKD stage III, CHF, hypothyroidism, Parkinson's dementia, congenital dysplasia of the hip presents with weakness, malaise, 3 days of worsening urinary symptoms found to have UTI with sepsis. Urinary tract infection Urinary symptoms for 3 days with frequency, dysuria, suprapubic pain. Urine obtained on straight cath grossly purulent. UA grossly positive. Lactic acid 2.7. Afebile on the morning of 10/20/20. No CVA tenderness. BUNs/CR 20/1.0. WBC down from 11.3 to 7.7. GFR improved from 27 to 43. History of UTIs. Patient received ceftriaxone and vancomycin at outside hospital. We will continue antibiotics and await urine cultures. Patient incontinent of bowel and bladder at home wears a brief. Plan Continue IV ceftriaxone, vancomycin Follow urine cultures -Preston Dc'd on 10/20/20. Trend white blood cell, lactic acid, fever curve: WBC down from 11.3 to 7.7. Lactic acid 1.5 on admission. Afebrile morning of 10/20/20. -PT Consult ordered. Sepsis without septic shock Patient meets sepsis criteria with elevated white blood cell count, tachypnea, tachycardia, elevated lactic acid. Patient septic secondary to urinary tract infection. No altered mental status. ANO x4. Blood pressure soft, but stable 110s over 65. Patient received IV fluids, ceftriaxone and vancomycin at outside hospital. Lactic acid down trending from 2.7-1.5. Plan Continue IV antibiotics and plan as above Follow urine cultures, blood cultures: Urine culture pending for further eval, Blood culture negative. Trend WBC, lactic acid, fever curve: WBC down from 11.3 to 7.7. Lactic acid 1.5 on admission. Afebrile morning of 10/20/20. Close monitoring of blood pressure - has remained stable. Atrial fibrillation History of atrial fibrillation. Follows with Dr. Fried. Was previously on Eliquis, however this was discontinued secondary to GIBs. Patient in normal sinus rhythm with normal ventricular rate currently. We will continue home amiodarone and atenolol. Plan Continue amiodarone, atenolol Congestive heart failure History of CHF. Echocardiogram from February 2019 shows an EF of 55 to 60% with diastolic dysfunction as well as a small PFO/ASD with [id number] shunting. Patient reports that she previously was taking Lasix, however this was disc ontinued a few months ago. Patient does not appears dry on exam, with clear lung sounds and only trace lower extremity edema. Patient fluid resuscitated secondary to sepsis in emergency room. We will closely monitor fluid status. Plan Continue home beta-sawyer, hold home ARB secondary to sepsis. Closely monitor fluid status Daily weights, I/O Acute kidney injury superimposed on chronic kidney disease History of CKD. On review of records it appears baseline creatinine approximately 1.4. BUN/CR 20/1.90. Patient receiving IV fluids per sepsis protocol. We will closely monitor. Plan Trend kidney function, GFR improved from 27 to 43. Gentle IV fluids Avoid nephrotoxic agents were possible Renal dosing as appropriate Hypothyroidism We will continue home levothyroxine and TSH normal at 1.21 Hypertension We will hold home losartan at this time secondary to sepsis and titrate antihypertensives as needed. Hyperlipidemia Continue home pravastatin Bipolar disorder History of bipolar disorder on Depakote, Risperdal, benztropine. We will continue home meds. Patient's mood appears stable and affect is congruent. Denies SI/HI at this time. GERD We will continue home pantoprazole Thrombocytopenia Platelet level 108. On review of records appears this is chronic. Recommend patient follow-up with her primary care provider as an outpatient. DVT prophylaxis SQ heparin Full code
[2020-10-20] MEDS: risperiDONE 1 MG TAB PO SCH (08:54)
[2020-10-20] MEDS: Divalproex Sodium DR 500 MG TAB PO SCH ×2 (08:54→20:58)
[2020-10-20] MEDS: Amiodarone 200 MG TAB PO SCH ×2 (08:54→20:58)
[2020-10-20] MEDS: Atenolol 25 MG TAB PO SCH (08:55)
[2020-10-20] MEDS: Benztropine 1 MG TAB PO SCH ×2 (08:55→20:58)
[2020-10-20 13:42] LABS: Vancomycin, Trough 14.5 ug/mL
[2020-10-20] MEDS ORDERED: Vancomycin 1.5 GRAM/300 ML BAG 1.5 GM in Premix Bag 1 BAG IVPB SCH (14:00)
[2020-10-20] MEDS: traMADol HCl 50 MG TAB PO PRN (15:57)
[2020-10-20] MEDS: Atorvastatin Calcium 10 MG TAB PO SCH (20:58)
[2020-10-21] MEDS: Levothyroxine Sodium 100 MCG TAB PO SCH (05:15)
[2020-10-21 05:27] LABS: Anion Gap 11 mmol/L (10-20); BUN (Urea Nitrogen) 15 mg/dL (9.8-20.1); Calc. Creatinine Clearance 67 mL/min (70-130); Calcium 8.7 mg/dL (7.8-10.44); Carbon Dioxide 19 mmol/L (22-29); Chloride 113 mmol/L (98-107); Glucose 79 mg/dL (70-105); Potassium 3.6 mmol/L (3.5-5.1); Sodium 139 mmol/L (136-145)
[2020-10-21 05:46] LABS: Hemoglobin 9.5 g/dL (12.0-16.0); Mean Corpuscular HGB CONC 32.4 g/dL (32.0-36.0); Mean Corpuscular Hemoglobin 34.1 pg (27.0-31.0); Mean Platelet Volume 6.9 fL (7.4-10.4); Platelet Count 106 thou/uL (130-400); RBC Distribution Width 13.5 % (11.5-14.5); Red Blood Cell (RBC) Count 2.78 mill/uL (4.20-5.40)
[2020-10-21 06:21] LABS: #Basophils 0.1 thou/uL (0.0-0.2); #Eosinphils 0.2 thou/uL (0.0-0.7); #Lymphocytes 1.9 thou/uL (1.20-3.40); #Monocytes 0.8 thou/uL (0.11-0.59); %Monocytes 13.6 % (0.0-10.0); %Neutrophils 50.4 % (42.0-75.0); Platelet Morphology Comment Appears Decreased
[2020-10-21] MEDS: Benztropine 1 MG TAB PO SCH ×2 (08:22→20:13)
[2020-10-21] MEDS: Atenolol 25 MG TAB PO SCH (08:22)
[2020-10-21] MEDS: Amiodarone 200 MG TAB PO SCH ×2 (08:23→10:20)
[2020-10-21] MEDS: risperiDONE 1 MG TAB PO SCH (08:24)
[2020-10-21] MEDS: Divalproex Sodium DR 500 MG TAB PO SCH ×2 (08:24→20:14)
[2020-10-21] MEDS ORDERED: Cepastat Lozenges 1 LOZ PO PRN (08:44)
[2020-10-21] MEDS ORDERED: Loperamide HCl 2 MG CAP PO PRN (08:44)
[2020-10-21] MEDS ORDERED: GUAIFENESIN SF SOLN 200 MG/10 ML UDCUP PO PRN (08:44)
[2020-10-21] MEDS ORDERED: Loratadine 10 MG TAB PO PRN (08:44)
[2020-10-21] MEDS ORDERED: Calcium Carbonate 500 MG ChewTAB PO PRN (08:44)
[2020-10-21] MEDS ORDERED: Sodium Chloride 0.65% Nasal 44 ML BOT EA NARE PRN (08:44)
[2020-10-21] MEDS ORDERED: Metoclopramide HCl 10 MG/2 ML VIAL IVP PRN (08:44)
[2020-10-21] MEDS ORDERED: hydrALAZINE 20 MG/ML VIAL SLOW IVP PRN (08:44)
[2020-10-21] MEDS ORDERED: Benzonatate 100 MG CAP PO PRN (08:44)
[2020-10-21] MEDS: Cyanocobalamin (Vitamin B-12) 1,000 MCG TAB PO SCH (10:19)
[2020-10-21] MEDS: Losartan 25 MG TAB PO SCH (10:19)
[2020-10-21] MEDS: Aspirin 81 mg Enteric Coated Tablet PO SCH (10:19)
[2020-10-21] MEDS: Folic Acid 1 MG TAB PO SCH (10:20)
[2020-10-21] MEDS: traMADol HCl 50 MG TAB PO PRN (10:22)
--- NOTE | 2020-10-21 10:39 | PDOC.HOSPP ---
- Subjective Encounter Date: 10/21/20 Encounter Time: 07:20 Subjective: Patient seen and examined. No new complaints. No overnight events - Objective Vital Signs & Weight: Vital Signs (12 hours) Temp Pulse Resp BP BP Pulse Ox 10/21/20 08:22 62 127/80 10/21/20 08:21 97.5 F L 62 18 127/80 100 10/21/20 03:56 97.8 F 55 L 18 132/83 100 10/20/20 23:03 97.9 F 56 L 18 114/75 98 Weight Weight 205 lb I&O: 10/20/20 10/21/20 10/22/20 06:59 06:59 06:59 Intake Total 1700 1440 Output Total 2024 300 Balance -325 1140 Result Diagrams: 10/21/20 04:53 10/21/20 04:53 Additional Labs: Accuchecks 10/21/20 10/20/20 05:35 19:29 POC Glucose 75 82 Hospitalist ROS - Review of Systems ENT: denies: ear pain, ear discharge, nose pain, nose discharge, nose congestion, mouth pain, mouth swelling, throat pain, throat swelling, other Respiratory: denies: cough, dry, shortness of breath, hemoptysis, SOB with excertion, pleuritic pain, sputum, wheezing, other Cardiovascular: denies: chest pain, palpitations, orthopnea, paroxysmal noc. dyspnea, edema, light headedness, other Gastrointestinal: denies: nausea, vomiting, abdominal pain, diarrhea, constipation, melena, hematochezia, other Genitourinary: denies: dysuria, frequency, incontinence, hematuria, retention, other Musculoskeletal: denies: neck pain, shoulder pain, arm pain, back pain, hand pain, leg pain, foot pain, other - Medication Medications: Active Medications Generic Name Dose Route Start Last Admin Trade Name Freq PRN Reason Stop Dose Admin Amiodarone HCl 200 mg 10/21/20 09:00 10/21/20 10:20 Amiodarone 200 Mg Tab PO Not Given DAILY [facility] Aspirin 81 mg 10/21/20 09:00 10/21/20 10:19 Aspirin 81 Mg Enteric Coated Tablet PO 81 mg DAILY [facility] Administration Atenolol 50 mg 10/19/20 09:00 10/21/20 08:22 Atenolol 25 Mg Tab PO 50 mg DAILY KYLEIGH Administration Atorvastatin Calcium 10 mg 10/18/20 21:00 10/20/20 20:58 Atorvastatin Calcium 10 Mg Tab PO 10 mg HS KYLEIGH Administration Benztropine Mesylate 1 mg 10/18/20 21:00 10/21/20 08:22 Benztropine 1 Mg Tab PO 1 mg BID KYLEIGH Administration Cyanocobalamin 1,000 mcg 10/21/20 09:00 10/21/20 10:19 Cyanocobalamin (Vitamin B-12) 1,000 Mcg Tab PO 1,000 mcg DAILY KYLEIGH Administration Divalproex Sodium 1,000 mg 10/18/20 21:00 10/20/20 20:[address] 500 Mg Tab PO 1,000 mg QPM KYLEIGH Administration Divalproex Sodium 500 mg 10/19/20 09:00 10/21/20 08:[address] 500 Mg Tab PO 500 mg QAM KYLEIGH Administration Folic Acid 1 mg 10/21/20 09:00 10/21/20 10:20 Folic Acid 1 Mg Tab PO 1 mg DAILY KYLEIGH Administration Levothyroxine Sodium 100 mcg 10/19/20 06:00 10/21/20 05:15 Levothyroxine Sodium 100 Mcg Tab PO 100 mcg 0600 KYLEIGH Administration Losartan Potassium 25 mg 10/21/20 09:00 10/21/20 10:19 Losartan 25 Mg Tab PO 25 mg DAILY KYLEIGH Administration Pantoprazole Sodium 40 mg 10/19/20 09:00 10/21/20 08:23 Pantoprazole 40 Mg Tab PO 40 mg DAILY KYLEIGH Administration Risperidone 1 mg 10/19/20 09:00 10/21/20 08:24 Risperidone 1 Mg Tab PO 1 mg DAILY KYLEIGH Administration Tramadol HCl 50 mg 10/18/20 14:03 10/21/20 10:22 Tramadol Hcl 50 Mg Tab PO 50 mg BIDPRN PRN Administration Moderate to Severe Pain (6-10) - Exam General Appearance: NAD, awake alert Eye: PERRL, anicteric sclera ENT: normocephalic atraumatic, no oropharyngeal lesions Neck: supple, symmetric, no JVD, no thyromegaly Heart: RRR, no murmur, no gallops, no rubs Respiratory: no wheezes, no rales, no ronchi Gastrointestinal: soft, non-tender, non-distended, normal bowel sounds Extremities: no cyanosis, no clubbing, no edema Skin: normal turgor, no lesions Neurological: no focal deficits Musculoskeletal: normal tone, normal strength Psychiatric: normal affect, normal behavior Hosp A/P (1) Chronic anticoagulation Code(s): Z79.01 - ADMISSIONS EVALUATOR (CURRENT) USE OF ANTICOAGULANTS Status: Chronic (2) HLD (hyperlipidemia) Code(s): E78.5 - HYPERLIPIDEMIA, UNSPECIFIED Status: Chronic (3) HTN (hypertension) Code(s): I10 - ESSENTIAL (PRIMARY) HYPERTENSION Status: Chronic (4) Hypothyroidism Code(s): E03.9 - HYPOTHYROIDISM, UNSPECIFIED Status: Chronic - Plan old records reviewed/req, continue antibiotics Patient is medically stable for discharge today We will change to Macrobid Please see my discharge summary
--- NOTE | 2020-10-21 10:44 | PDOC.DS.DS ---
Provider - Provider Date of Admission: 10/18/20 06:51 Date of Discharge: 10/21/20 Admitting Provider: Devang Hercules MD Primary Care Physician: Alix Smith MD Course - Hospital Course Hospital Course: Ms. Olivia is a 60-year-old female with past medical history of atrial fibrillation on amiodarone (no anticoagulation secondary to GI bleeds), hypertension, hyperlipidemia, GERD, bipolar disorder, CKD stage III, hypothyroidism, congestive heart failure, Parkinson's dementia, congenital hip dysplasia who initially presented to [facility] for urinary symptoms and concerns for UTI. Patient reports that her urinary symptoms and suprapubic pain began a few days ago with foul-smelling urine, suprapubic pain, increased urinary frequency, and dysuria. Patient has a history of recurrent urinary tract infections. Patient also and endorsed weakness, malaise, subjective fevers. She denies flank pain. She denies chest pain, shortness of breath. Denies nausea vomiting diarrhea. Denies melena, hematochezia, hematemesis. Denies numbness weakness or paresthesias. Emergency room initial vital signs 113/65, 68, 20, 100.2, 98% on room air. UA grossly positive. Lactic acid 2.7. WBC 13.8. H/H 12.7/30.2. Platelets 108. BUN/CR 20/1.90. Sodium 136, potassium 4.0, glucose 96. Patient received ceftriaxone, vancomycin as well as 2 L normal saline before being transferred to [facility] emergency room. Patient admitted to hospital service for further management of her UTI and associated sepsis. After admission patient was treated with Rocephin and vancomycin, she had a urine culture which came back positive and based on culture and sensitivity result to be changed to Bactrim DS on discharge, patient has significant clinical improvement. (pt to continue Bactrim x 3 days following discharge then d/c all antibiotics.) Resuscitation Status: 10/18/20 09:15 Resuscitation Status Routine Co-Sign Provider: Resuscitation Status: FULL: Full Resuscitation - Labs Lab Results: 10/21/20 04:53 10/21/20 04:53 Abnormal Lab Results - Last 48 hrs 10/20/20 02:10: Urine Clarity Turbid A, Urine Blood 1+ A, Ur Leukocyte Esterase 500 A, Urine RBC 11-20 A, Urine WBC Greater than 50 A, Urine Bacteria 1+ A, Urine Culture Reflexed Yes A 10/20/20 05:07: Sodium 134 L, Potassium 3.4 L, Chloride 110 H, Carbon Dioxide 17 L, Creatinine 1.26 H 10/20/20 05:07: RBC 2.53 L, Hgb 8.9 L, Hct 26.4 L, MCV 104.0 H, MCH 35.2 H, Plt Count 82 L, Monocytes % 13.4 H, Monocytes # 1.0 H 10/21/20 04:53: Chloride 113 H, Carbon Dioxide 19 L, Creatinine 1.32 H 10/21/20 04:53: RBC 2.78 L, Hgb 9.5 L, Hct 29.2 L, MCV 105.0 H, MCH 34.1 H, Plt Count 106 L, MPV 6.9 L, Monocytes % 13.6 H, Monocytes # 0.8 H, Plt Morphology Comment Appears Decreased L Microbiology - Entire Visit 10/18/20 09:33 Venous blood - Left Arm Blood Culture - Preliminary NO GROWTH AT 48 HOURS 10/18/20 09:33 Venous blood - Right Hand Blood Culture - Preliminary NO GROWTH AT 48 HOURS 10/20/20 02:47 Urine aguirre catheter Urine Culture - Preliminary NO GROWTH AT 12 HOURS 10/18/20 16:30 Urine clean catch Urine Culture - Final - Physical Exam Vitals: Vital Signs (12 hours) Temp Pulse Resp BP BP Pulse Ox 10/21/20 08:22 62 127/80 10/21/20 08:21 97.5 F L 62 18 127/80 100 10/21/20 03:56 97.8 F 55 L 18 132/83 100 10/20/20 23:03 97.9 F 56 L 18 114/75 98 Weight Weight 205 lb Physical Exam: The patient was seen and examined on the day of discharge. Problem - Problem (1) Chronic anticoagulation Code(s): Z79.01 - PRISON (CURRENT) USE OF ANTICOAGULANTS Status: Chronic (2) HLD (hyperlipidemia) Code(s): E78.5 - HYPERLIPIDEMIA, UNSPECIFIED Status: Chronic (3) HTN (hypertension) Code(s): I10 - ESSENTIAL (PRIMARY) HYPERTENSION Status: Chronic (4) Hypothyroidism Code(s): E03.9 - HYPOTHYROIDISM, UNSPECIFIED Status: Chronic (5) UTI (urinary tract infection) Status: Acute Qualifiers: Urinary tract infection type: acute cystitis Hematuria presence: without hematuria Qualified Code(s): N30.00 - Acute cystitis without hematuria (6) Atrial fibrillation Code(s): I48.91 - UNSPECIFIED ATRIAL FIBRILLATION Status: Chronic Qualifiers: Atrial fibrillation type: paroxysmal Qualified Code(s): I48.0 - Paroxysmal atrial fibrillation (7) CKD (chronic kidney disease) Code(s): N18.9 - CHRONIC KIDNEY DISEASE, UNSPECIFIED Status: Chronic Qualifiers: Chronic kidney disease stage: stage 3 (moderate) Chronic kidney disease stage 3 subtype: stage 3b (GFR 30-44) Qualified Code(s): N18.32 - Chronic kidney disease, stage 3b Plan - Discharge Medications Prescriptions: Sulfamethoxazole/Trimethoprim [Bactrim DS] 1 tab PO BID #8 tab Folic Acid [Folvite] 1 mg PO DAILY #30 tab Cyanocobalamin (Vitamin B-12) [Vitamin B-12] 1,000 mcg PO DAILY #30 tab Home Medications: Medication Instructions Recorded Confirmed Type Aspirin [Ecotrin Low Strength] 81 mg PO DAILY tab 03/09/20 10/18/20 Rx Atenolol [Tenormin] 50 mg PO DAILY tab 03/09/20 10/18/20 Rx Atorvastatin Calcium [Lipitor] 10 mg PO HS tab 03/09/20 10/18/20 Rx Benztropine [Cogentin] 1 mg PO BID tab 03/09/20 10/18/20 Rx Divalproex Sodium [Depakote] 1,000 mg PO QPM tab 03/09/20 10/18/20 Rx Divalproex Sodium [Depakote] 500 mg PO QAM tab 03/09/20 10/18/20 Rx Levothyroxine Sodium [Synthroid] 100 mcg PO 0600 tab 03/09/20 10/18/20 Rx Losartan [Cozaar] 25 mg PO DAILY tab 03/09/20 10/18/20 Rx Pantoprazole [Protonix] 40 mg PO DAILY tab 03/09/20 10/18/20 Rx risperiDONE [RisperDAL] 1 mg PO DAILY tab 03/09/20 10/18/20 Rx Clotrimazole [Lotrimin 1% Cream] 0 gm TOP BID 04/04/20 10/18/20 History traMADol HCl [Ultram] 50 mg PO BID PRN 14 Days tab 05/08/20 10/18/20 Rx Acetaminophen [Tylenol Regular 650 mg PO Q4H PRN 05/23/20 10/18/20 History Strength] Amiodarone [Cordarone] 200 mg PO DAILY 10/18/20 10/18/20 History Sulfamethoxazole/Trimethoprim 1 tab PO BID #8 tab 10/20/20 Rx [Bactrim DS] Cyanocobalamin (Vitamin B-12) 1,000 mcg PO DAILY #30 tab 10/21/20 Rx [Vitamin B-12] Folic Acid [Folvite] 1 mg PO DAILY #30 tab 10/21/20 Rx Allergies: codeine Allergy (Verified 11/24/17 02:49) Penicillins Allergy (Verified 11/24/17 02:49) - Discharge Instructions Activity:: Activity as Tolerated Nourishment:: Heart Healthy Diet Therapies:: Home Health Equipment/Supplies:: Not Applicable IV Therapy:: Not Applicable - Follow up Plan Referrals: Alix Smith MD [Primary Care Provider] - Disposition: HOME HEALTH Quality - Care Measures CORE MEASURES:: N/A
[2020-10-21] MEDS: Atorvastatin Calcium 10 MG TAB PO SCH (20:13)
[2020-10-22] MEDS: Levothyroxine Sodium 100 MCG TAB PO SCH (05:55)
[2020-10-22 06:14] LABS: Anion Gap 12 mmol/L (10-20); BUN (Urea Nitrogen) 13 mg/dL (9.8-20.1); Calc. Creatinine Clearance 74 mL/min (70-130); Calcium 9.1 mg/dL (7.8-10.44); Carbon Dioxide 18 mmol/L (22-29); Chloride 109 mmol/L (98-107); Glucose 73 mg/dL (70-105); Potassium 3.8 mmol/L (3.5-5.1); Sodium 135 mmol/L (136-145)
[2020-10-22 06:27] LABS: Hemoglobin 9.8 g/dL (12.0-16.0); Mean Corpuscular HGB CONC 33.1 g/dL (32.0-36.0); Mean Corpuscular Hemoglobin 34.5 pg (27.0-31.0); Mean Platelet Volume 6.7 fL (7.4-10.4); Platelet Count 139 thou/uL (130-400); RBC Distribution Width 13.8 % (11.5-14.5); Red Blood Cell (RBC) Count 2.85 mill/uL (4.20-5.40); White Blood Cell (WBC) Count 6.7 thou/uL (4.8-10.8)
[2020-10-22] MEDS: traMADol HCl 50 MG TAB PO PRN (07:00)
[2020-10-22] MEDS: Senokot S 8.6-50 MG TAB PO PRN (07:01)
[2020-10-22 07:45] LABS: Band 5 % (5-11); Eosinophils 3 % (0-10); Lymphocytes 45 % (21-51); MDiff Complete? YES; Metamyelocyte 5 % (0-0); Monocytes 16 % (0-10); Myelocyte 4 % (0-0); Neutrophil 20 % (42-75); Platelet Morphology Comment Appears Adequate; Polychromasia SLIGHT = 2-3 cells (100X) (0-2/hpf); Reactive Lymphocytes 2 % (0-10)
[2020-10-22] MEDS: Benztropine 1 MG TAB PO SCH ×2 (08:39→21:30)
[2020-10-22] MEDS: Aspirin 81 mg Enteric Coated Tablet PO SCH (08:39)
[2020-10-22] MEDS: Cyanocobalamin (Vitamin B-12) 1,000 MCG TAB PO SCH (08:39)
[2020-10-22] MEDS: Atenolol 25 MG TAB PO SCH (08:39)
[2020-10-22] MEDS: Folic Acid 1 MG TAB PO SCH (08:40)
[2020-10-22] MEDS: Losartan 25 MG TAB PO SCH (08:40)
[2020-10-22] MEDS: Amiodarone 200 MG TAB PO SCH (08:40)
[2020-10-22] MEDS: risperiDONE 1 MG TAB PO SCH (08:40)
[2020-10-22] MEDS: Divalproex Sodium DR 500 MG TAB PO SCH ×2 (08:41→21:30)
--- NOTE | 2020-10-22 12:04 | PDOC.HOSPP ---
- Subjective Encounter Date: 10/22/20 Encounter Time: 07:20 Subjective: Patient seen and examined bedside today, no overnight event, no new complaint,, yesterday patient was planned for discharge but she did not go, physical therapy recommended to senior living home, patient prefers to go to senior living home - Objective Vital Signs & Weight: Vital Signs (12 hours) Temp Pulse Resp BP Pulse Ox 10/22/20 08:39 62 10/22/20 07:34 98 F 62 18 145/85 H 93 L 10/22/20 03:55 98.1 F 57 L 16 138/86 96 Weight Weight 205 lb I&O: 10/21/20 10/22/20 10/23/20 06:59 06:59 06:59 Intake Total 1440 360 Output Total 300 Balance 1140 360 Result Diagrams: 10/22/20 05:24 10/22/20 05:24 Hospitalist ROS - Review of Systems Constitutional: reports: weakness. denies: fever, chills, sweats, malaise, other ENT: denies: ear pain, ear discharge, nose pain, nose discharge, nose congestion, mouth pain, mouth swelling, throat pain, throat swelling, other Respiratory: denies: cough, dry, shortness of breath, hemoptysis, SOB with excertion, pleuritic pain, sputum, wheezing, other Cardiovascular: denies: chest pain, palpitations, orthopnea, paroxysmal noc. dys pnea, edema, light headedness, other Gastrointestinal: denies: nausea, vomiting, abdominal pain, diarrhea, constipation, melena, hematochezia, other Genitourinary: denies: dysuria, frequency, incontinence, hematuria, retention, other Musculoskeletal: denies: neck pain, shoulder pain, arm pain, back pain, hand pain, leg pain, foot pain, other - Medication Medications: Active Medications Generic Name Dose Route Start Last Admin Trade Name Freq PRN Reason Stop Dose Admin Amiodarone HCl 200 mg 10/21/20 09:00 10/22/20 08:40 Amiodarone 200 Mg Tab PO 200 mg DAILY KYLEIGH Administration Aspirin 81 mg 10/21/20 09:00 10/22/20 08:39 Aspirin 81 Mg Enteric Coated Tablet PO 81 mg DAILY KYLEIGH Administration Atenolol 50 mg 10/19/20 09:00 10/22/20 08:39 Atenolol 25 Mg Tab PO 50 mg DAILY KYLEIGH Administration Atorvastatin Calcium 10 mg 10/18/20 21:00 10/21/20 20:13 Atorvastatin Calcium 10 Mg Tab PO 10 mg HS KYLEIGH Administration Benztropine Mesylate 1 mg 10/18/20 21:00 10/22/20 08:39 Benztropine 1 Mg Tab PO 1 mg BID KYLEIGH Administration Cyanocobalamin 1,000 mcg 10/21/20 09:00 10/22/20 08:39 Cyanocobalamin (Vitamin B-12) 1,000 Mcg Tab PO 1,000 mcg DAILY KYLEIGH Administration Divalproex Sodium 1,000 mg 10/18/20 21:00 10/21/20 20:[address] 500 Mg Tab PO 1,000 mg QPM KYLEIGH Administration Divalproex Sodium 500 mg 10/19/20 09:00 10/22/20 08:[address] 500 Mg Tab PO 500 mg QAM KYLEIGH Administration Folic Acid 1 mg 10/21/20 09:00 10/22/20 08:40 Folic Acid 1 Mg Tab PO 1 mg DAILY KYLEIGH Administration Levothyroxine Sodium 100 mcg 10/19/20 06:00 10/22/20 05:55 Levothyroxine Sodium 100 Mcg Tab PO 100 mcg 0600 KYLEIGH Administration Losartan Potassium 25 mg 10/21/20 09:00 10/22/20 08:40 Losartan 25 Mg Tab PO 25 mg DAILY KYLEIGH Administration Pantoprazole Sodium 40 mg 10/19/20 09:00 10/22/20 08:40 Pantoprazole 40 Mg Tab PO 40 mg DAILY KYLEIGH Administration Risperidone 1 mg 10/19/20 09:00 10/22/20 08:40 Risperidone 1 Mg Tab PO 1 mg DAILY KYLEIGH Administration Senna/Docusate Sodium 2 tab 10/21/20 08:44 10/22/20 07:01 Senokot S 8.6-50 Mg Tab PO 2 tab BID PRN Administration Constipation Tramadol HCl 50 mg 10/18/20 14:03 10/22/20 07:00 Tramadol Hcl 50 Mg Tab PO 50 mg BIDPRN PRN Administration Moderate to Severe Pain (6-10) - Exam General Appearance: NAD, awake alert Eye: PERRL, anicteric sclera ENT: normocephalic atraumatic, no oropharyngeal lesions Neck: supple, symmetric, no JVD, no thyromegaly Heart: RRR, no murmur, no gallops, no rubs Respiratory: no wheezes, no rales, no ronchi Gastrointestinal: soft, non-tender, non-distended, normal bowel sounds Extremities: no cyanosis, no clubbing, no edema Skin: normal turgor, no lesions Neurological: no focal deficits Musculoskeletal: normal tone, normal strength Psychiatric: normal affect, normal behavior Hosp A/P (1) UTI (urinary tract infection) Status: Acute Qualifiers: Urinary tract infection type: acute cystitis Hematuria presence: without hematuria Qualified Code(s): N30.00 - Acute cystitis without hematuria (2) Chronic anticoagulation Code(s): Z79.01 - [facility] (CURRENT) USE OF ANTICOAGULANTS Status: Chronic (3) HLD (hyperlipidemia) Code(s): E78.5 - HYPERLIPIDEMIA, UNSPECIFIED Status: Chronic (4) HTN (hypertension) Code(s): I10 - ESSENTIAL (PRIMARY) HYPERTENSION Status: Chronic (5) Hypothyroidism Code(s): E03.9 - HYPOTHYROIDISM, UNSPECIFIED Status: Chronic (6) Atrial fibrillation Code(s): I48.91 - UNSPECIFIED ATRIAL FIBRILLATION Status: Chronic Qualifiers: Atrial fibrillation type: paroxysmal Qualified Code(s): I48.0 - Paroxysmal atrial fibrillation (7) CKD (chronic kidney disease) Code(s): N18.9 - CHRONIC KIDNEY DISEASE, UNSPECIFIED Status: Chronic Qualifiers: Chronic kidney disease stage: stage 3 (moderate) Chronic kidney disease stage 3 subtype: stage 3b (GFR 30-44) Qualified Code(s): N18.32 - Chronic kidney disease, stage 3b - Plan old records reviewed/req, PT/OT, nephrology social worker Patient is medically stable for discharge anytime virtual classroom manager is following for placement arrangement Discharge summary already done, I have kept discharge paperwork in the chart, Continue Bactrim upon discharge for another 3 days and then discontinue all antibiotic therapy
[2020-10-22] MEDS: Bisacodyl 5 MG TAB PO PRN (16:44)
[2020-10-22] MEDS: Atorvastatin Calcium 10 MG TAB PO SCH (21:30)
[2020-10-23] MEDS: Levothyroxine Sodium 100 MCG TAB PO SCH (05:14)
[2020-10-23] MEDS: Losartan 25 MG TAB PO SCH ×2 (08:23→09:57)
[2020-10-23] MEDS: Aspirin 81 mg Enteric Coated Tablet PO SCH (08:23)
[2020-10-23] MEDS: Bisacodyl 5 MG TAB PO PRN (08:23)
[2020-10-23] MEDS: Folic Acid 1 MG TAB PO SCH (08:23)
[2020-10-23] MEDS: risperiDONE 1 MG TAB PO SCH (08:23)
[2020-10-23] MEDS: Amiodarone 200 MG TAB PO SCH (08:23)
[2020-10-23] MEDS: Cyanocobalamin (Vitamin B-12) 1,000 MCG TAB PO SCH (08:23)
[2020-10-23] MEDS: Senokot S 8.6-50 MG TAB PO PRN (08:23)
[2020-10-23] MEDS: Benztropine 1 MG TAB PO SCH ×2 (08:23→20:20)
[2020-10-23] MEDS: Divalproex Sodium DR 500 MG TAB PO SCH ×2 (09:59→20:23)
[2020-10-23] MEDS: Atenolol 25 MG TAB PO SCH (10:00)
--- NOTE | 2020-10-23 17:23 | PDOC.HOSPP ---
- Subjective Encounter Date: 10/23/20 Encounter Time: 09:00 Subjective: Patient seen for follow-up regarding UTI. She denies any new complaints. - Objective Vital Signs & Weight: Vital Signs (12 hours) Temp Pulse Resp BP Pulse Ox 10/23/20 14:31 97.9 F 57 L 18 117/82 99 10/23/20 11:00 97.7 F 50 L 18 114/76 100 10/23/20 10:00 54 L 10/23/20 07:06 97.7 F 54 L 18 114/79 100 Weight Weight 205 lb I&O: 10/22/20 10/23/20 10/24/20 06:59 06:59 06:59 Intake Total 1820 840 Output Total 650 Balance 1170 840 Result Diagrams: 10/22/20 05:24 10/22/20 05:24 Additional Labs: Labs and MAR reviewed by mo Hospitalist ROS - Review of Systems Cardiovascular: denies: chest pain, palpitations, orthopnea, paroxysmal noc. dyspnea, edema, light headedness Gastrointestinal: denies: nausea, vomiting, abdominal pain, diarrhea, constipation, melena, hematochezia - Medication Medications: Active Medications Generic Name Dose Route Start Last Admin Trade Name Freq PRN Reason Stop Dose Admin Amiodarone HCl 200 mg 10/21/20 09:00 10/23/20 08:23 Amiodarone 200 Mg Tab PO 200 mg DAILY KYLEIGH Administration Aspirin 81 mg 10/21/20 09:00 10/23/20 08:23 Aspirin 81 Mg Enteric Coated Tablet PO 81 mg DAILY KYLEIGH Administration Atenolol 50 mg 10/19/20 09:00 10/23/20 10:00 Atenolol 25 Mg Tab PO Not Given DAILY KYLEIGH Atorvastatin Calcium 10 mg 10/18/20 21:00 10/22/20 21:30 Atorvastatin Calcium 10 Mg Tab PO 10 mg HS KYLEIGH Administration Benztropine Mesylate 1 mg 10/18/20 21:00 10/23/20 08:23 Benztropine 1 Mg Tab PO 1 mg BID KYLEIGH Administration Bisacodyl 10 mg 10/21/20 08:44 10/23/20 08:23 Bisacodyl 5 Mg Tab PO 10 mg DAILYPRN PRN Administration Constipation Cyanocobalamin 1,000 mcg 10/21/20 09:00 10/23/20 08:23 Cyanocobalamin (Vitamin B-12) 1,000 Mcg Tab PO 1,000 mcg DAILY KYLEIGH Administration Divalproex Sodium 1,000 mg 10/18/20 21:00 10/22/20 21:[address] 500 Mg Tab PO 1,000 mg QPM KYLEIGH Administration Divalproex Sodium 500 mg 10/19/20 09:00 10/23/20 09:[address] 500 Mg Tab PO 500 mg QAM KYLEIGH Administration Folic Acid 1 mg 10/21/20 09:00 10/23/20 08:23 Folic Acid 1 Mg Tab PO 1 mg DAILY KYLEIGH Administration Levothyroxine Sodium 100 mcg 10/19/20 06:00 10/23/20 05:14 Levothyroxine Sodium 100 Mcg Tab PO 100 mcg 0600 KYLEIGH Administration Losartan Potassium 25 mg 10/21/20 09:00 10/23/20 09:57 Losartan 25 Mg Tab PO 25 mg DAILY KYLEIGH Administration Pantoprazole Sodium 40 mg 10/19/20 09:00 10/23/20 08:23 Pantoprazole 40 Mg Tab PO 40 mg DAILY KYLEIGH Administration Risperidone 1 mg 10/19/20 09:00 10/23/20 08:23 Risperidone 1 Mg Tab PO 1 mg DAILY KYLEIGH Administration Senna/Docusate Sodium 2 tab 10/21/20 08:44 10/23/20 08:23 Senokot S 8.6-50 Mg Tab PO 2 tab BID PRN Administration Constipation Tramadol HCl 50 mg 10/18/20 14:03 10/22/20 07:00 Tramadol Hcl 50 Mg Tab PO 50 mg BIDPRN PRN Administration Moderate to Severe Pain (6-10) - Exam General Appearance: awake alert Eye: anicteric sclera ENT: moist mucosa Neck: supple Heart: RRR Respiratory: CTAB Gastrointestinal: soft, non-tender Extremities: no clubbing Skin: no rashes Psychiatric: normal affect Hosp A/P - Plan Hosp A/P (1) UTI (urinary tract infection) Status: Acute Qualifiers: Urinary tract infection type: acute cystitis Hematuria presence: without hematuria Qualified Code(s): N30.00 - Acute cystitis without hematuria (2) Chronic anticoagulation Code(s): Z79.01 - [employer] CRIMINAL (CURRENT) USE OF ANTICOAGULANTS Status: Chronic (3) HLD (hyperlipidemia) Code(s): E78.5 - HYPERLIPIDEMIA, UNSPECIFIED Status: Chronic (4) HTN (hypertension) Code(s): I10 - ESSENTIAL (PRIMARY) HYPERTENSION Status: Chronic (5) Hypothyroidism Code(s): E03.9 - HYPOTHYROIDISM, UNSPECIFIED Status: Chronic (6) Atrial fibrillation Code(s): I48.91 - UNSPECIFIED ATRIAL FIBRILLATION Status: Chronic Qualifiers: Atrial fibrillation type: paroxysmal Qualified Code(s): I48.0 - Paroxysmal atrial fibrillation (7) CKD (chronic kidney disease) Code(s): N18.9 - CHRONIC KIDNEY DISEASE, UNSPECIFIED Status: Chronic Qualifiers: Chronic kidney disease stage: stage 3 (moderate) Chronic kidney disease stage 3 subtype: stage 3b (GFR 30-44) Qualified Code(s): N18.32 - Chronic kidney disease, stage 3b - Plan start macrobid Patient is medically stable for discharge anytime Patient is to go to [facility] nursing [facility]. client service and consulting manager following.
[2020-10-23] MEDS: traMADol HCl 50 MG TAB PO PRN (18:38)
[2020-10-23] MEDS: Nitrofurantoin Monohyd/M-Cryst 100 MG CAP PO SCH (20:20)
[2020-10-23] MEDS: Atorvastatin Calcium 10 MG TAB PO SCH (20:20)
[2020-10-23] MEDS: Acetaminophen 325 MG TAB PO PRN (20:23)
[2020-10-24] MEDS: Acetaminophen 325 MG TAB PO PRN (03:54)
[2020-10-24] MEDS: Levothyroxine Sodium 100 MCG TAB PO SCH (05:07)
[2020-10-24] MEDS: Folic Acid 1 MG TAB PO SCH (09:00)
[2020-10-24] MEDS: Amiodarone 200 MG TAB PO SCH (09:00)
[2020-10-24] MEDS: Atenolol 25 MG TAB PO SCH (09:00)
[2020-10-24] MEDS: Cyanocobalamin (Vitamin B-12) 1,000 MCG TAB PO SCH (09:00)
[2020-10-24] MEDS: risperiDONE 1 MG TAB PO SCH (09:01)
[2020-10-24] MEDS: Aspirin 81 mg Enteric Coated Tablet PO SCH (09:01)
[2020-10-24] MEDS: Nitrofurantoin Monohyd/M-Cryst 100 MG CAP PO SCH ×2 (09:01→19:45)
[2020-10-24] MEDS: Losartan 25 MG TAB PO SCH (09:01)
[2020-10-24] MEDS: Benztropine 1 MG TAB PO SCH ×2 (09:02→19:44)
[2020-10-24] MEDS: Divalproex Sodium DR 500 MG TAB PO SCH ×2 (09:02→19:45)
--- NOTE | 2020-10-24 17:19 | PDOC.HOSPP ---
- Subjective Encounter Date: 10/24/20 Encounter Time: 12:30 Subjective: Patient seen in follow-up for urinary tract infection. No new complaints today. - Objective Vital Signs & Weight: Vital Signs (12 hours) Temp Pulse Resp BP Pulse Ox 10/24/20 16:20 97.7 F 86 16 135/72 94 L 10/24/20 12:42 97.5 F L 53 L 16 126/82 92 L 10/24/20 09:00 61 10/24/20 07:47 97.1 F L 61 16 134/85 95 Weight Weight 205 lb I&O: 10/23/20 10/24/20 10/25/20 06:59 06:59 06:59 Intake Total 1820 2100 Output Total 650 2650 Balance 1170 -550 Result Diagrams: 10/22/20 05:24 10/22/20 05:24 Additional Labs: I reviewed patient's labs and MAR Hospitalist ROS - Review of Systems Cardiovascular: denies: chest pain, palpitations, orthopnea, paroxysmal noc. dyspnea, edema, light headedness Skin: denies: rash, lesions, les, bruising - Medication Medications: Active Medications Generic Name Dose Route Start Last Admin Trade Name Freq PRN Reason Stop Dose Admin Acetaminophen 650 mg 10/21/20 08:43 10/24/20 03:54 Acetaminophen 325 Mg Tab PO 650 mg Q4H PRN Administration Fever/Mild Pain Amiodarone HCl 200 mg 10/21/20 09:00 10/24/20 09:00 Amiodarone 200 Mg Tab PO 200 mg DAILY KYLEIGH Administration Aspirin 81 mg 10/21/20 09:00 10/24/20 09:01 Aspirin 81 Mg Enteric Coated Tablet PO 81 mg DAILY KYLEIGH Administration Atenolol 50 mg 10/19/20 09:00 10/24/20 09:00 Atenolol 25 Mg Tab PO 50 mg DAILY KYLEIGH Administration Atorvastatin Calcium 10 mg 10/18/20 21:00 10/23/20 20:20 Atorvastatin Calcium 10 Mg Tab PO 10 mg HS KYLEIGH Administration Benztropine Mesylate 1 mg 10/18/20 21:00 10/24/20 09:02 Benztropine 1 Mg Tab PO 1 mg BID KYLEIGH Administration Bisacodyl 10 mg 10/21/20 08:44 10/23/20 08:23 Bisacodyl 5 Mg Tab PO 10 mg DAILYPRN PRN Administration Constipation Cyanocobalamin 1,000 mcg 10/21/20 09:00 10/24/20 09:00 Cyanocobalamin (Vitamin B-12) 1,000 Mcg Tab PO 1,000 mcg DAILY KYLEIGH Administration Divalproex Sodium 1,000 mg 10/18/20 21:00 10/23/20 20:[address] 500 Mg Tab PO 1,000 mg QPM KYLEIGH Administration Divalproex Sodium 500 mg 10/19/20 09:00 10/24/20 09:[address] 500 Mg Tab PO 500 mg QAM KYLEIGH Administration Folic Acid 1 mg 10/21/20 09:00 10/24/20 09:00 Folic Acid 1 Mg Tab PO 1 mg DAILY KYLEIGH Administration Levothyroxine Sodium 100 mcg 10/19/20 06:00 10/24/20 05:07 Levothyroxine Sodium 100 Mcg Tab PO 100 mcg 0600 KYLEIGH Administration Losartan Potassium 25 mg 10/21/20 09:00 10/24/20 09:01 Losartan 25 Mg Tab PO 25 mg DAILY KYLEIGH Administration Nitrofurantoin Macrocrystals 100 mg 10/23/20 21:00 10/24/20 09:01 Nitrofurantoin Monohyd/M-Cryst 100 Mg Cap PO 100 mg BID KYLEIGH Administration Pantoprazole Sodium 40 mg 10/19/20 09:00 10/24/20 09:01 Pantoprazole 40 Mg Tab PO 40 mg DAILY KYLEIGH Administration Risperidone 1 mg 10/19/20 09:00 10/24/20 09:01 Risperidone 1 Mg Tab PO 1 mg DAILY KYLEIGH Administration Senna/Docusate Sodium 2 tab 10/21/20 08:44 10/23/20 08:23 Senokot S 8.6-50 Mg Tab PO 2 tab BID PRN Administration Constipation Tramadol HCl 50 mg 10/18/20 14:03 10/23/20 18:38 Tramadol Hcl 50 Mg Tab PO 50 mg BIDPRN PRN Administration Moderate to Severe Pain (6-10) - Exam General Appearance: awake alert ENT: normocephalic atraumatic Neck: supple Heart: RRR Respiratory: CTAB Gastrointestinal: soft, non-tender Skin: no rashes Psychiatric: normal affect, normal behavior Hosp A/P - Plan Hosp A/P (1) UTI (urinary tract infection) Status: Acute Qualifiers: Urinary tract infection type: acute cystitis Hematuria presence: without hematuria Qualified Code(s): N30.00 - Acute cystitis without hematuria (2) Chronic anticoagulation Code(s): Z79.01 - [facility] (CURRENT) USE OF ANTICOAGULANTS Status: Chronic (3) HLD (hyperlipidemia) Code(s): E78.5 - HYPERLIPIDEMIA, UNSPECIFIED Status: Chronic (4) HTN (hypertension) Code(s): I10 - ESSENTIAL (PRIMARY) HYPERTENSION Status: Chronic (5) Hypothyroidism Code(s): E03.9 - HYPOTHYROIDISM, UNSPECIFIED Status: Chronic (6) Atrial fibrillation Code(s): I48.91 - UNSPECIFIED ATRIAL FIBRILLATION Status: Chronic Qualifiers: Atrial fibrillation type: paroxysmal Qualified Code(s): I48.0 - Paroxysmal atrial fibrillation (7) CKD (chronic kidney disease) Code(s): N18.9 - CHRONIC KIDNEY DISEASE, UNSPECIFIED Status: Chronic Qualifiers: Chronic kidney disease stage: stage 3 (moderate) Chronic kidney disease stage 3 subtype: stage 3b (GFR 30-44) Qualified Code(s): N18.32 - Chronic kidney disease, stage 3b - Plan Continue macrobid Patient is medically stable for discharge anytime Patient is to go to [facility] tomorrow. biomass power plant manager following.
[2020-10-24] MEDS: traMADol HCl 50 MG TAB PO PRN (19:45)
[2020-10-24] MEDS: Atorvastatin Calcium 10 MG TAB PO SCH (19:45)
[2020-10-25] MEDS: Levothyroxine Sodium 100 MCG TAB PO SCH (05:32)
[2020-10-25 07:21] VITALS: BP 125/78; TEMP 97.7
[2020-10-25] MEDS: Aspirin 81 mg Enteric Coated Tablet PO SCH (09:04)
[2020-10-25] MEDS: Folic Acid 1 MG TAB PO SCH (09:04)
[2020-10-25] MEDS: Amiodarone 200 MG TAB PO SCH (09:04)
[2020-10-25] MEDS: risperiDONE 1 MG TAB PO SCH (09:04)
[2020-10-25] MEDS: Atenolol 25 MG TAB PO SCH (09:04)
[2020-10-25] MEDS: Divalproex Sodium DR 500 MG TAB PO SCH (09:05)
[2020-10-25] MEDS: Losartan 25 MG TAB PO SCH (09:05)
[2020-10-25] MEDS: Nitrofurantoin Monohyd/M-Cryst 100 MG CAP PO SCH (09:05)
[2020-10-25] MEDS: Cyanocobalamin (Vitamin B-12) 1,000 MCG TAB PO SCH (09:05)
[2020-10-25] MEDS: Benztropine 1 MG TAB PO SCH (09:05)
[2020-10-25] MEDS: traMADol HCl 50 MG TAB PO PRN (09:10)
[2020-10-25 11:25] LABS: SARS-CoV-2 NAA Rapid Test Not Detected (NotDetected)
--- NOTE | 2020-10-25 11:54 | PDOC.DS.DS ---
Provider - Provider Date of Admission: 10/18/20 06:51 Date of Discharge: 10/25/20 Admitting Provider: Devang Hercules MD Primary Care Physician: Alix Smith MD Course - Hospital Course Hospital Course: Discharge diagnosis: 1. Urinary tract infection 2. Severe sepsis secondary to urinary tract infection 3. Acute on chronic stage III renal failure 4. Hyponatremia 5. Hypokalemia 6. COVID-19 PCR test negative Hospital course: Patient is a pleasant 60-year-old lady who was admitted to the hospital on October 18, 2020 for severe sepsis secondary to urinary tract infection. She was treated with broad-spectrum intravenous antibiotics. Final blood culture did not show any growth. Final urine culture grew E. coli that was pansensi tive. Patient was also physically deconditioned, and is being discharged to [facility] for group home and therapy. Many thanks for allowing me to participate in your patient's care. Please feel free to contact me with any questions or concerns. Discharge destination: [facility] Total amount of time spent coordinating this discharge: 32 minutes Resuscitation Status: 10/18/20 09:15 Resuscitation Status Routine Co-Sign Provider: Resuscitation Status: FULL: Full Resuscitation - Labs Lab Results: 10/22/20 05:24 10/22/20 05:24 Microbiology - Entire Visit 10/18/20 09:33 Venous blood - Left Arm Blood Culture - Final NO GROWTH IN 5 DAYS 10/18/20 09:33 Venous blood - Right Hand Blood Culture - Final NO GROWTH IN 5 DAYS 10/20/20 02:47 Urine aguirre catheter Urine Culture - Final NO GROWTH AT 36 HOURS 10/18/20 16:30 Urine clean catch Urine Culture - Final - Physical Exam Vitals: Vital Signs (12 hours) Temp Pulse Resp BP Pulse Ox 10/25/20 09:04 53 L 10/25/20 07:13 97.7 F 53 L 16 125/78 94 L 10/25/20 04:15 97.9 F 58 L 16 132/76 94 L Weight Weight 205 lb Physical Exam: The patient was seen and examined on the day of discharge. Plan - Discharge Medications Prescriptions: Folic Acid [Folvite] 1 mg PO DAILY #30 tab Cyanocobalamin (Vitamin B-12) [Vitamin B-12] 1,000 mcg PO DAILY #30 tab Home Medications: Medication Instructions Recorded Confirmed Type Aspirin [Ecotrin Low Strength] 81 mg PO DAILY tab 03/09/20 10/18/20 Rx Atenolol [Tenormin] 50 mg PO DAILY tab 03/09/20 10/18/20 Rx Atorvastatin Calcium [Lipitor] 10 mg PO HS tab 03/09/20 10/18/20 Rx Benztropine [Cogentin] 1 mg PO BID tab 03/09/20 10/18/20 Rx Divalproex Sodium [Depakote] 1,000 mg PO QPM tab 03/09/20 10/18/20 Rx Divalproex Sodium [Depakote] 500 mg PO QAM tab 03/09/20 10/18/20 Rx Levothyroxine Sodium [Synthroid] 100 mcg PO 0600 tab 03/09/20 10/18/20 Rx Losartan [Cozaar] 25 mg PO DAILY tab 03/09/20 10/18/20 Rx Pantoprazole [Protonix] 40 mg PO DAILY tab 03/09/20 10/18/20 Rx risperiDONE [RisperDAL] 1 mg PO DAILY tab 03/09/20 10/18/20 Rx Clotrimazole [Lotrimin 1% Cream] 0 gm TOP BID 04/04/20 10/18/20 History Acetaminophen [Tylenol Regular 650 mg PO Q4H PRN 05/23/20 10/18/20 History Strength] Amiodarone [Cordarone] 200 mg PO DAILY 10/18/20 10/18/20 History Cyanocobalamin (Vitamin B-12) 1,000 mcg PO DAILY #30 tab 10/21/20 Rx [Vitamin B-12] Folic Acid [Folvite] 1 mg PO DAILY #30 tab 10/21/20 Rx Nitrofurantoin Monohyd/M-Cryst 100 mg PO BID #6 cap 10/25/20 Rx [Macrobid] Allergies: codeine Allergy (Verified 11/24/17 02:49) Penicillins Allergy (Verified 11/24/17 02:49) - Discharge Instructions Discharge Instructions:: (pt to continue Bactrim x 3 days following discharge then d/c all antibiotics.) Activity:: Activity as Tolerated Nourishment:: Heart Healthy Diet Therapies:: Home Health Equipment/Supplies:: Not Applicable IV Therapy:: Not Applicable - Follow up Plan Referrals: Alix Smith MD [Primary Care Provider] - Disposition: HOME HEALTH Quality - Care Measures CORE MEASURES:: N/A
== END 2020-10-25 12:21 | DRG 872 ==
LOC: ERS 06:03 → SURG A 06:51
PROVIDERS: ADMIT Internal Medicine; ATTEND Internal Medicine
PROC: 0T9B70Z Drainage of Bladder with Drainage Device, Via Natural or Artificial Opening (ICD-10-PCS; principal; 2020-10-19)
DX: A41.51 Sepsis due to Escherichia coli [E. coli] (principal); N30.00 Acute cystitis without hematuria; N17.9 Acute kidney failure, unspecified; I13.0 Hypertensive heart and chronic kidney disease with heart failure and stage 1 through stage 4 chronic kidney disease, or unspecified chronic kidney disease; E87.1 Hypo-osmolality and hyponatremia; Q21.1 Atrial septal defect; Z20.822 Contact with and (suspected) exposure to COVID-19; R65.20 Severe sepsis without septic shock; E78.5 Hyperlipidemia, unspecified; K21.9 Gastro-esophageal reflux disease without esophagitis; E03.9 Hypothyroidism, unspecified; I50.9 Heart failure, unspecified; E78.00 Pure hypercholesterolemia, unspecified; F31.9 Bipolar disorder, unspecified; G20 Parkinson's disease; F02.80 Dementia in other diseases classified elsewhere, unspecified severity, without behavioral disturbance, psychotic disturbance, mood disturbance, and anxiety; D69.6 Thrombocytopenia, unspecified; I48.0 Paroxysmal atrial fibrillation; N18.32 Chronic kidney disease, stage 3b; E87.6 Hypokalemia; Z79.899 Other long term (current) drug therapy; Z79.82 Long term (current) use of aspirin; Z79.890 Hormone replacement therapy; Z88.5 Allergy status to narcotic agent; Z88.0 Allergy status to penicillin; Z98.51 Tubal ligation status; Z87.440 Personal history of urinary (tract) infections; Q65.89 Other specified congenital deformities of hip; Z98.1 Arthrodesis status; Z79.01 Long term (current) use of anticoagulants
CPT/HCPCS: 36415; 36416; 71045; 74018; 80048; 80202; 81001; 83605; 84443; 85025; 87086; 93005; 93010; 99285; J0696; J1644; J3370; J3490; J7050; U0002

== ENCOUNTER 2020-11-21 15:56 | Inpatient (IN) | payer MEDICARE, OTHER ==
[2020-11-21 16:20] LABS: Hemoglobin 7.6 g/dL (12.0-16.0); Mean Corpuscular HGB CONC 33.6 g/dL (32.0-36.0); Mean Corpuscular Hemoglobin 35.4 pg (27.0-31.0); Platelet Count 274 thou/uL (130-400); RBC Distribution Width 12.9 % (11.5-14.5); Red Blood Cell (RBC) Count 2.14 mill/uL (4.20-5.40); White Blood Cell (WBC) Count 20.2 thou/uL (4.8-10.8)
[2020-11-21 16:26] LABS: INR-International Normal Ratio 1.4; PTT 37.7 sec (22.9-36.1)
[2020-11-21] MEDS ORDERED: cefTRIAXone\\ROCEPHIN 1 GM VIAL ONE (16:40)
[2020-11-21 16:41] LABS: ALT (SGPT) Less than 7 U/L (8-55); AST (SGOT) 10 U/L (5-34); Albumin 2.2 g/dL (3.5-5.0); Alkaline Phosphatase 58 U/L (40-110); Anion Gap 12 mmol/L (10-20); BUN (Urea Nitrogen) 21 mg/dL (9.8-20.1); Bilirubin, Total 0.2 mg/dL (0.2-1.2); Calc. Creatinine Clearance 0 mL/min (70-130); Calcium 8.6 mg/dL (7.8-10.44); Carbon Dioxide 21 mmol/L (22-29); Chloride 107 mmol/L (98-107); Globulin 4.1 g/dL (2.4-3.5); Glucose 95 mg/dL (70-105); Potassium 3.3 mmol/L (3.5-5.1); Protein, Total 6.3 g/dL (6.0-8.3); Sodium 137 mmol/L (136-145)
[2020-11-21 16:53] LABS: Clarity Cloudy (Clear)
[2020-11-21 16:54] LABS: Leukocyte Large (Negative)
[2020-11-21 16:55] LABS: Band 14 % (5-11); Lymphocytes 17 % (21-51); MDiff Complete? YES; Macrocytosis SLIGHT = 6-15 cells (100X) (0-5/hpf); Metamyelocyte 1 % (0-0); Monocytes 17 % (0-10); Myelocyte 3 % (0-0); Neutrophil 48 % (42-75); Platelet Morphology Comment Appears Adequate; Polychromasia SLIGHT = 2-3 cells (100X) (0-2/hpf)
[2020-11-21 16:56] LABS: Specific Gravity, Urine 1.012 (1.005-1.030)
[2020-11-21 16:57] LABS: Blood, Urine Moderate (Negative); RBC/HPF 21-50 HPF (0-3); WBC/HPF Greater than 50 HPF (0-3)
[2020-11-21 16:58] LABS: Bacteria/HPF 4+ HPF (None Seen); Squamous Epithelial 0-3 HPF (0-3)
[2020-11-21] MEDS ORDERED: cefTRIAXone\\ROCEPHIN 1 GM in Sodium Chloride 0.9% 100 ML IVPB SCH (17:00)
[2020-11-21] MEDS ORDERED: Calcium Carbonate 500 MG ChewTAB PO PRN (19:34)
[2020-11-21] MEDS ORDERED: Ondansetron PF 4 MG/2 ML Vial IVP PRN (19:34)
[2020-11-21] MEDS ORDERED: Ondansetron ODT 4 MG TAB PO PRN (19:34)
[2020-11-21] MEDS ORDERED: Potassium Chloride 20 MEQ TAB PO SCH (19:45)
[2020-11-21] MEDS ORDERED: Acetaminophen 325 MG TAB ONE (21:42)
[2020-11-21] MEDS ORDERED: Magnesium 2 GM/50 ML 2 GM in Premix Bag 1 BAG IVPB SCH (21:45)
[2020-11-21] MEDS: Acetaminophen 325 MG TAB PO PRN (21:52)
[2020-11-21] MEDS ORDERED: Potassium Chloride 20 MEQ TAB ONE (22:47)
[2020-11-21] MEDS ORDERED: Magnesium 2 GM/50 ML BAG (IN WATER) ONE (22:47)
[2020-11-21] MEDS: Divalproex Sodium 250 MG (DR) TAB PO SCH (23:08)
[2020-11-21] MEDS: Benztropine 1 MG TAB PO SCH (23:08)
[2020-11-21] MEDS: Sodium Bicarbonate Tab 325 MG TAB PO SCH (23:09)
[2020-11-22 01:57] LABS: SARS-CoV-2 PCR by NAA Not Detected (NotDetected)
[2020-11-22] MEDS ORDERED: Acetaminophen 325 MG TAB ONE (02:21)
[2020-11-22] MEDS: Acetaminophen 325 MG TAB PO PRN (02:26)
[2020-11-22 04:31] LABS: Reticulocyte Count 2.8 % (0.5-1.5)
[2020-11-22 04:55] LABS: Iron Binding Capacity, Total 160 mcg/dL (265-497)
[2020-11-22 04:57] LABS: Anion Gap 13 mmol/L (10-20); BUN (Urea Nitrogen) 21 mg/dL (9.8-20.1); Calc. Creatinine Clearance 67 mL/min (70-130); Carbon Dioxide 19 mmol/L (22-29); Chloride 111 mmol/L (98-107); Glucose 79 mg/dL (70-105); Iron Less than 8 ug/dL (50-170); Iron Binding Capacity, Total 164 mcg/dL (265-497); Potassium 3.8 mmol/L (3.5-5.1); Sodium 139 mmol/L (136-145)
[2020-11-22 04:58] LABS: Iron Less than 8 ug/dL (50-170)
[2020-11-22 05:10] LABS: Band 21 % (5-11); Hemoglobin 8.7 g/dL (12.0-16.0); Hypochromia SLIGHT = 6-15 cells (100X) (0-5/hpf); Lymphocytes 12 % (21-51); MDiff Complete? YES; Macrocytosis SLIGHT = 6-15 cells (100X) (0-5/hpf); Mean Corpuscular HGB CONC 32.3 g/dL (32.0-36.0); Mean Corpuscular Hemoglobin 34.5 pg (27.0-31.0); Mean Platelet Volume 6.3 fL (7.4-10.4); Metamyelocyte 1 % (0-0); Monocytes 16 % (0-10); Neutrophil 50 % (42-75); Platelet Count 222 thou/uL (130-400); Platelet Morphology Comment Appears Adequate; RBC Distribution Width 12.9 % (11.5-14.5); Red Blood Cell (RBC) Count 2.52 mill/uL (4.20-5.40); White Blood Cell (WBC) Count 17.2 thou/uL (4.8-10.8)
[2020-11-22 05:11] LABS: Thyroid Stimulating Hormone 2.3282 uIU/mL (0.35-4.94)
[2020-11-22 05:58] LABS: Ferritin 254.36 ng/mL (10-291)
[2020-11-22] MEDS: Levothyroxine Sodium 100 MCG TAB PO SCH (06:18)
[2020-11-22] MEDS ORDERED: Folic Acid 1 MG TAB PO SCH (09:00)
[2020-11-22] MEDS ORDERED: Cyanocobalamin (Vitamin B-12) 1,000 MCG TAB PO SCH ×2 (09:00→11:20)
[2020-11-22] MEDS ORDERED: Divalproex Sodium 250 MG (DR) TAB ONE (10:29)
[2020-11-22] MEDS ORDERED: Aspirin Chewable 81 MG TAB ONE (10:29)
[2020-11-22] MEDS ORDERED: Folic Acid 1 MG TAB ONE (10:29)
[2020-11-22] MEDS: Aspirin 81 mg Enteric Coated Tablet PO SCH (10:35)
[2020-11-22] MEDS: Divalproex Sodium 250 MG (DR) TAB PO SCH ×2 (10:35→20:58)
[2020-11-22] MEDS: Benztropine 1 MG TAB PO SCH ×2 (10:35→20:59)
[2020-11-22] MEDS: Sodium Bicarbonate Tab 325 MG TAB PO SCH ×3 (10:36→21:00)
[2020-11-22] MEDS: cefTRIAXone\\ROCEPHIN 1 GM in Sodium Chloride 0.9% 100 ML IVPB SCH (15:18)
[2020-11-22] MEDS ORDERED: Vancomycin 1 GM in Premix Bag 1 BAG IVPB SCH (18:00)
[2020-11-22] MEDS ORDERED: Vancomycin HCl 1.5 GM in Sodium Chloride 0.9% 250 ML 300 ML IVPB SCH (18:00)
[2020-11-22] MEDS: Folic Acid 1 MG TAB PO SCH (20:59)
[2020-11-22] MEDS: Heparin 5,000 UNITS/ML VIAL SC SCH (20:59)
[2020-11-23 04:37] LABS: Anion Gap 15 mmol/L (10-20); BUN (Urea Nitrogen) 25 mg/dL (9.8-20.1); Calc. Creatinine Clearance 51 mL/min (70-130); Carbon Dioxide 19 mmol/L (22-29); Chloride 112 mmol/L (98-107); Glucose 71 mg/dL (70-105); Magnesium 2.3 mg/dL (1.6-2.6); Potassium 4.6 mmol/L (3.5-5.1); Sodium 141 mmol/L (136-145)
[2020-11-23 04:53] LABS: Hemoglobin 8.5 g/dL (12.0-16.0); Lymphocytes 19 % (21-51); MDiff Complete? YES; Mean Corpuscular HGB CONC 32.6 g/dL (32.0-36.0); Mean Corpuscular Hemoglobin 35.7 pg (27.0-31.0); Mean Platelet Volume 7.4 fL (7.4-10.4); Metamyelocyte 1 % (0-0); Monocytes 2 % (0-10); Neutrophil 78 % (42-75); Nucleated RBC 1 % (0); Platelet Clumps SLIGHT; Platelet Count 123 thou/uL (130-400); Platelet Morphology Comment Appears Decreased; RBC Distribution Width 12.9 % (11.5-14.5); Red Blood Cell (RBC) Count 2.37 mill/uL (4.20-5.40); White Blood Cell (WBC) Count 14.3 thou/uL (4.8-10.8)
[2020-11-23] MEDS: Levothyroxine Sodium 100 MCG TAB PO SCH (05:47)
[2020-11-23] MEDS: Sodium Bicarbonate Tab 325 MG TAB PO SCH ×2 (07:51→14:28)
[2020-11-23] MEDS: Cyanocobalamin (Vitamin B-12) 1,000 MCG TAB PO SCH (07:52)
[2020-11-23] MEDS: Aspirin 81 mg Enteric Coated Tablet PO SCH (07:52)
[2020-11-23] MEDS: Divalproex Sodium 250 MG (DR) TAB PO SCH ×2 (07:52→21:12)
[2020-11-23] MEDS: Ferrous Gluconate 324 MG TAB PO SCH (07:54)
[2020-11-23] MEDS: Folic Acid 1 MG TAB PO SCH ×2 (07:54→21:13)
[2020-11-23] MEDS: Benztropine 1 MG TAB PO SCH ×2 (07:54→21:13)
[2020-11-23] MEDS: Heparin 5,000 UNITS/ML VIAL SC SCH ×2 (07:55→21:13)
[2020-11-23] MEDS ORDERED: risperiDONE 1 MG TAB PO SCH (09:00)
[2020-11-23] MEDS ORDERED: Amiodarone 200 MG TAB PO SCH (09:00)
[2020-11-23] MEDS: Dextrose 5 %-0.45 % NaCl 1,000 ML IV SCH (10:15)
[2020-11-23] MEDS: Famotidine 20 MG TAB PO SCH (10:19)
[2020-11-23] MEDS: Amiodarone 200 MG TAB PO SCH (10:20)
[2020-11-23] MEDS ORDERED: FLU VACC QS2020-21(6MOS UP)/PF 60 MCG/0.5 ML SYRINGE IM ONE (14:15)
[2020-11-23 15:36] VITALS: BMI 28.8
[2020-11-23] MEDS: cefTRIAXone\\ROCEPHIN 1 GM in Sodium Chloride 0.9% 100 ML IVPB SCH (17:03)
[2020-11-23] MEDS: Acetaminophen 500 MG TAB PO SCH (21:13)
[2020-11-24 04:37] LABS: #Eosinphils 0.2 thou/uL (0.0-0.7); #Lymphocytes 2.8 thou/uL (1.20-3.40); #Monocytes 1.4 thou/uL (0.11-0.59); #Neutrophils 6.2 thou/uL (1.40-6.50); %Basophils 0.3 % (0.0-1.0); %Eosinophils 1.9 % (0.0-10.0); %Lymphocytes 26.2 % (21.0-51.0); %Monocytes 13.3 % (0.0-10.0); %Neutrophils 58.4 % (42.0-75.0); Hemoglobin 8.2 g/dL (12.0-16.0); Mean Corpuscular HGB CONC 32.8 g/dL (32.0-36.0); Mean Corpuscular Hemoglobin 35.1 pg (27.0-31.0); Mean Platelet Volume 6.4 fL (7.4-10.4); Platelet Count 193 thou/uL (130-400); RBC Distribution Width 12.7 % (11.5-14.5); Red Blood Cell (RBC) Count 2.33 mill/uL (4.20-5.40); White Blood Cell (WBC) Count 10.7 thou/uL (4.8-10.8)
[2020-11-24 05:01] LABS: Anion Gap 11 mmol/L (10-20); BUN (Urea Nitrogen) 22 mg/dL (9.8-20.1); Calc. Creatinine Clearance 59 mL/min (70-130); Calcium 8.7 mg/dL (7.8-10.44); Carbon Dioxide 20 mmol/L (22-29); Chloride 106 mmol/L (98-107); Glucose 82 mg/dL (70-105); Potassium 4.1 mmol/L (3.5-5.1); Sodium 133 mmol/L (136-145)
[2020-11-24] MEDS: Dextrose 5 %-0.45 % NaCl 1,000 ML IV SCH (05:13)
[2020-11-24] MEDS: Levothyroxine Sodium 100 MCG TAB PO SCH (05:31)
[2020-11-24] MEDS: traMADol HCl 50 MG TAB PO SCH ×2 (06:11→16:31)
[2020-11-24] MEDS: Divalproex Sodium 250 MG (DR) TAB PO SCH ×2 (08:20→20:43)
[2020-11-24] MEDS: Aspirin 81 mg Enteric Coated Tablet PO SCH (08:21)
[2020-11-24] MEDS: Folic Acid 1 MG TAB PO SCH ×2 (08:21→20:44)
[2020-11-24] MEDS: Ferrous Gluconate 324 MG TAB PO SCH (08:21)
[2020-11-24] MEDS: Famotidine 20 MG TAB PO SCH (08:21)
[2020-11-24] MEDS: Benztropine 1 MG TAB PO SCH ×2 (08:21→20:44)
[2020-11-24] MEDS: Cyanocobalamin (Vitamin B-12) 1,000 MCG TAB PO SCH (08:22)
[2020-11-24] MEDS: Heparin 5,000 UNITS/ML VIAL SC SCH ×2 (08:23→20:44)
[2020-11-24] MEDS: Amiodarone 200 MG TAB PO SCH (08:34)
[2020-11-24] MEDS: Acetaminophen 500 MG TAB PO SCH ×2 (11:24→18:55)
[2020-11-24] MEDS ORDERED: Acetaminophen 500 MG TAB PO PRN (11:32)
[2020-11-24] MEDS ORDERED: Nystatin Powder 15 GM BOT TOP PRN (15:13)
[2020-11-24] MEDS: cefTRIAXone\\ROCEPHIN 1 GM in Sodium Chloride 0.9% 100 ML IVPB SCH (16:31)
[2020-11-24] MEDS: risperiDONE 0.25 MG TAB PO SCH (20:44)
[2020-11-24] MEDS ORDERED: Non-Formulary Item 1 EACH (Risperidone [Risperdal] 0.5 MG Tab) PO SCH (21:00)
[2020-11-25 04:41] LABS: #Eosinphils 0.3 thou/uL (0.0-0.7); #Lymphocytes 2.6 thou/uL (1.20-3.40); #Neutrophils 4.6 thou/uL (1.40-6.50); %Basophils 0.3 % (0.0-1.0); %Eosinophils 3.3 % (0.0-10.0); %Lymphocytes 30.2 % (21.0-51.0); %Monocytes 11.9 % (0.0-10.0); %Neutrophils 54.3 % (42.0-75.0); Hemoglobin 8.4 g/dL (12.0-16.0); Mean Corpuscular HGB CONC 32.9 g/dL (32.0-36.0); Mean Corpuscular Hemoglobin 34.9 pg (27.0-31.0); Mean Platelet Volume 6.2 fL (7.4-10.4); Platelet Count 193 thou/uL (130-400); RBC Distribution Width 12.8 % (11.5-14.5); White Blood Cell (WBC) Count 8.5 thou/uL (4.8-10.8)
[2020-11-25 04:57] LABS: Anion Gap 11 mmol/L (10-20); BUN (Urea Nitrogen) 21 mg/dL (9.8-20.1); Calc. Creatinine Clearance 59 mL/min (70-130); Calcium 9.1 mg/dL (7.8-10.44); Carbon Dioxide 19 mmol/L (22-29); Chloride 107 mmol/L (98-107); Glucose 70 mg/dL (70-105); Potassium 4.1 mmol/L (3.5-5.1); Sodium 133 mmol/L (136-145)
[2020-11-25] MEDS: traMADol HCl 50 MG TAB PO SCH ×2 (05:47→14:39)
[2020-11-25] MEDS: Levothyroxine Sodium 100 MCG TAB PO SCH (05:48)
[2020-11-25] MEDS: Famotidine 20 MG TAB PO SCH (10:32)
[2020-11-25] MEDS: Aspirin 81 mg Enteric Coated Tablet PO SCH (10:32)
[2020-11-25] MEDS: Benztropine 1 MG TAB PO SCH ×2 (10:32→21:23)
[2020-11-25] MEDS: Amiodarone 200 MG TAB PO SCH (10:33)
[2020-11-25] MEDS: Divalproex Sodium 250 MG (DR) TAB PO SCH ×2 (10:33→21:23)
[2020-11-25] MEDS: Cyanocobalamin (Vitamin B-12) 1,000 MCG TAB PO SCH (10:34)
[2020-11-25] MEDS: Ferrous Gluconate 324 MG TAB PO SCH (10:34)
[2020-11-25] MEDS: Folic Acid 1 MG TAB PO SCH ×2 (10:35→21:23)
[2020-11-25] MEDS: Heparin 5,000 UNITS/ML VIAL SC SCH ×2 (10:37→21:24)
[2020-11-25] MEDS: Acetaminophen 500 MG TAB PO SCH ×2 (10:40→18:03)
[2020-11-25] MEDS: cefTRIAXone\\ROCEPHIN 1 GM in Sodium Chloride 0.9% 100 ML IVPB SCH (16:56)
[2020-11-25] MEDS: risperiDONE 0.25 MG TAB PO SCH (21:23)
[2020-11-26] MEDS: Levothyroxine Sodium 100 MCG TAB PO SCH (06:04)
[2020-11-26] MEDS: traMADol HCl 50 MG TAB PO SCH ×2 (06:04→15:45)
[2020-11-26] MEDS: Ferrous Gluconate 324 MG TAB PO SCH (09:31)
[2020-11-26] MEDS: Famotidine 20 MG TAB PO SCH (09:31)
[2020-11-26] MEDS: Aspirin 81 mg Enteric Coated Tablet PO SCH (09:32)
[2020-11-26] MEDS: Amiodarone 200 MG TAB PO SCH (09:32)
[2020-11-26] MEDS: Benztropine 1 MG TAB PO SCH ×2 (09:32→20:07)
[2020-11-26] MEDS: Folic Acid 1 MG TAB PO SCH ×2 (09:32→20:07)
[2020-11-26] MEDS: Cyanocobalamin (Vitamin B-12) 1,000 MCG TAB PO SCH (09:32)
[2020-11-26] MEDS: Divalproex Sodium 250 MG (DR) TAB PO SCH (09:33)
[2020-11-26] MEDS: cefOXitin Sodium/Dextrose,Iso 1 GM in Premix Bag 1 BAG IVPB SCH ×3 (09:33→20:22)
[2020-11-26] MEDS: Heparin 5,000 UNITS/ML VIAL SC SCH ×2 (09:33→20:06)
[2020-11-26] MEDS: Acetaminophen 500 MG TAB PO SCH ×2 (11:33→19:58)
[2020-11-26] MEDS: risperiDONE 0.25 MG TAB PO SCH (20:06)
[2020-11-27] MEDS: Divalproex Sodium 250 MG (DR) TAB PO SCH ×2 (01:04→08:55)
[2020-11-27] MEDS: cefOXitin Sodium/Dextrose,Iso 1 GM in Premix Bag 1 BAG IVPB SCH ×2 (02:22→09:27)
[2020-11-27] MEDS: Levothyroxine Sodium 100 MCG TAB PO SCH (05:53)
[2020-11-27] MEDS: traMADol HCl 50 MG TAB PO SCH ×2 (05:58→15:13)
[2020-11-27] MEDS: Famotidine 20 MG TAB PO SCH (08:50)
[2020-11-27] MEDS: Aspirin 81 mg Enteric Coated Tablet PO SCH (08:54)
[2020-11-27] MEDS: Benztropine 1 MG TAB PO SCH (08:54)
[2020-11-27] MEDS: Ferrous Gluconate 324 MG TAB PO SCH (08:56)
[2020-11-27] MEDS: Amiodarone 200 MG TAB PO SCH (08:56)
[2020-11-27] MEDS: Cyanocobalamin (Vitamin B-12) 1,000 MCG TAB PO SCH (08:57)
[2020-11-27] MEDS: Folic Acid 1 MG TAB PO SCH (08:59)
[2020-11-27] MEDS: Heparin 5,000 UNITS/ML VIAL SC SCH (08:59)
[2020-11-27] MEDS: Acetaminophen 500 MG TAB PO SCH (12:34)
[2020-11-27 16:19] VITALS: BP 111/72; TEMP 98.3
[2020-11-28] MEDS ORDERED: Cefdinir 300 MG CAP PO SCH (09:00)
== END 2020-11-27 17:57 | DRG 871 ==
LOC: ERS 15:56 → ERHOLD 18:40 → 2NO 11-22 13:54 → SURG A 11-25 22:45 → T4-B 11-26 17:48
PROVIDERS: ADMIT Internal Medicine; ATTEND Internal Medicine
DX: A41.51 Sepsis due to Escherichia coli [E. coli] (principal); G93.41 Metabolic encephalopathy; N17.9 Acute kidney failure, unspecified; N10 Acute pyelonephritis; Z16.24 Resistance to multiple antibiotics; I13.0 Hypertensive heart and chronic kidney disease with heart failure and stage 1 through stage 4 chronic kidney disease, or unspecified chronic kidney disease; Z20.822 Contact with and (suspected) exposure to COVID-19; A41.59 Other Gram-negative sepsis; G20 Parkinson's disease; D63.1 Anemia in chronic kidney disease; E78.5 Hyperlipidemia, unspecified; E03.9 Hypothyroidism, unspecified; E87.6 Hypokalemia; F31.9 Bipolar disorder, unspecified; I48.0 Paroxysmal atrial fibrillation; K21.9 Gastro-esophageal reflux disease without esophagitis; I50.9 Heart failure, unspecified; N18.30 Chronic kidney disease, stage 3 unspecified; E78.00 Pure hypercholesterolemia, unspecified; D52.9 Folate deficiency anemia, unspecified; Z88.0 Allergy status to penicillin; Z88.5 Allergy status to narcotic agent; Z79.82 Long term (current) use of aspirin; Z79.890 Hormone replacement therapy; Z79.899 Other long term (current) drug therapy; Z98.51 Tubal ligation status; Z74.01 Bed confinement status
CPT/HCPCS: 36415; 36556; 51701; 71045; 76770; 80048; 80053; 81003; 81015; 82607; 82728; 82746; 83540; 83550; 83605; 83735; 84443; 84484; 85025; 85046; 85610; 85730; 86850; 86900; 86901; 87040; 87077; 87086; 87186; 87635; 93005; 94760; 96365; 96367; J0694; J0696; J1644; J3370; J3475; J3490; J7030; J7050; U0003; U0005

== ENCOUNTER 2021-06-14 22:27 | Inpatient (IN) | payer MEDICARE, MEDICAID ==
[2021-06-15] MEDS ORDERED: Acetaminophen 325 MG TAB PO PRN (03:45)
[2021-06-15] MEDS ORDERED: Acetaminophen 650 MG Suppository PR PRN (03:45)
[2021-06-15] MEDS ORDERED: Ondansetron PF 4 MG/2 ML Vial IVP PRN (03:45)
[2021-06-15] MEDS ORDERED: Ondansetron ODT 4 MG TAB PO PRN (03:45)
[2021-06-15 05:06] LABS: Bacteria/HPF 4+ HPF (None Seen); Bilirubin Negative (Negative); Blood, Urine 3+ (Negative); Clarity Extra Turbid (Clear); Glucose, Urine (Dipstick) Normal (Negative); Ketone, Urine Negative (Negative); Leukocyte 500 Leu/uL (Negative); Nitrite Negative (Negative); Protein, Urine (Dipstick) 300 mg/dL (Neg-Trace); RBC/HPF Greater than 50 HPF (0-3); Specific Gravity, Urine 1.016 (1.002-1.036); Urobilinogen Normal mg/dL (Less than 2); WBC/HPF Greater than 50 HPF (0-3); pH, Urine 6.5 (5.0-9.0)
[2021-06-15 05:10] LABS: Urine Culture Reflex No No
[2021-06-15 05:32] LABS: Anion Gap 14 mmol/L (10-20); BUN (Urea Nitrogen) 41 mg/dL (9.8-20.1); Calc. Creatinine Clearance 28 mL/min (70-130); Calcium 9.7 mg/dL (7.8-10.44); Carbon Dioxide 22 mmol/L (22-29); Chloride 115 mmol/L (98-107); Glucose 63 mg/dL (70-105); Potassium 4.8 mmol/L (3.5-5.1); Sodium 146 mmol/L (136-145)
[2021-06-15 05:55] LABS: Band 22 % (5-11); Eosinophils 1 % (0-10); Hemoglobin 12.1 g/dL (12.0-16.0); Lymphocytes 25 % (21-51); MDiff Complete? YES; Macrocytosis SLIGHT = 6-15 cells (100X) (0-5/hpf); Mean Corpuscular HGB CONC 32.4 g/dL (32.0-36.0); Mean Corpuscular Hemoglobin 36.2 pg (27.0-31.0); Mean Platelet Volume 9.3 fL (7.4-10.4); Metamyelocyte 1 % (0-0); Monocytes 9 % (0-10); Neutrophil 42 % (42-75); Platelet Count 43 thou/uL (130-400); Platelet Morphology Comment Appears Decreased; RBC Distribution Width 15.3 % (11.5-14.5); Red Blood Cell (RBC) Count 3.34 mill/uL (4.20-5.40); White Blood Cell (WBC) Count 27.8 thou/uL (4.8-10.8)
[2021-06-15] MEDS ORDERED: Heparin 5,000 UNITS/ML VIAL SC SCH (09:00)
[2021-06-15] MEDS ORDERED: Bisacodyl 5 MG TAB PO PRN (12:22)
[2021-06-15] MEDS ORDERED: Sodium Chloride 0.9% 1,000 ML IV SCH (12:30)
[2021-06-15] MEDS: cefTRIAXone\\ROCEPHIN 1 GM in Sodium Chloride 0.9% 100 ML IVPB SCH (12:32)
[2021-06-15] MEDS: Sodium Chloride 0.45% 1,000 ML IV SCH ×2 (12:36→21:48)
[2021-06-15] MEDS: Nystatin Powder 15 GM BOT TOP SCH ×2 (14:31→21:45)
[2021-06-15 17:24] LABS: SARS-CoV-2 PCR by NAA Not Detected (NotDetected)
[2021-06-16] MEDS: Sodium Chloride 0.45% 1,000 ML IV SCH ×5 (05:45→21:16)
[2021-06-16 08:19] LABS: Hemoglobin 10.9 g/dL (12.0-16.0); Mean Corpuscular HGB CONC 32.2 g/dL (32.0-36.0); Mean Corpuscular Hemoglobin 35.9 pg (27.0-31.0); Mean Platelet Volume 7.3 fL (7.4-10.4); Platelet Count 51 thou/uL (130-400); RBC Distribution Width 14.9 % (11.5-14.5); Red Blood Cell (RBC) Count 3.04 mill/uL (4.20-5.40)
[2021-06-16 08:34] LABS: Anion Gap 12 mmol/L (10-20); BUN (Urea Nitrogen) 36 mg/dL (9.8-20.1); Calc. Creatinine Clearance 33 mL/min (70-130); Calcium 9.5 mg/dL (7.8-10.44); Carbon Dioxide 22 mmol/L (22-29); Chloride 116 mmol/L (98-107); Potassium 4.2 mmol/L (3.5-5.1); Sodium 146 mmol/L (136-145)
[2021-06-16 08:40] LABS: Glucose 51 mg/dL (70-105)
[2021-06-16] MEDS ORDERED: Dextrose 50% Abboject 50 ML SYRINGE ONE (08:42)
[2021-06-16 09:52] LABS: Band 16 % (5-11); Lymphocytes 31 % (21-51); MDiff Complete? YES; Macrocytosis SLIGHT = 6-15 cells (100X) (0-5/hpf); Monocytes 6 % (0-10); Neutrophil 47 % (42-75); Platelet Morphology Comment Appears Decreased; Polychromasia MODERATE = 3-4 cells (100X) (0-2/hpf)
[2021-06-16] MEDS: Nystatin Powder 15 GM BOT TOP SCH ×3 (11:09→21:16)
[2021-06-16] MEDS: cefTRIAXone\\ROCEPHIN 1 GM in Sodium Chloride 0.9% 100 ML IVPB SCH (11:38)
[2021-06-16 15:23] VITALS: BMI 27.6
[2021-06-17] MEDS: Sodium Chloride 0.45% 1,000 ML IV SCH ×2 (05:34→11:56)
[2021-06-17 06:25] LABS: Anion Gap 9 mmol/L (10-20); BUN (Urea Nitrogen) 27 mg/dL (9.8-20.1); Calc. Creatinine Clearance 38 mL/min (70-130); Calcium 8.8 mg/dL (7.8-10.44); Carbon Dioxide 24 mmol/L (22-29); Chloride 112 mmol/L (98-107); Glucose 69 mg/dL (70-105); Potassium 3.9 mmol/L (3.5-5.1); Sodium 141 mmol/L (136-145)
[2021-06-17] MEDS ORDERED: Dextrose 50% Abboject 50 ML SYRINGE ONE (07:04)
[2021-06-17 07:18] LABS: Hemoglobin 10.4 g/dL (12.0-16.0); Mean Corpuscular HGB CONC 32.6 g/dL (32.0-36.0); Mean Corpuscular Hemoglobin 36.2 pg (27.0-31.0); Mean Platelet Volume 6.9 fL (7.4-10.4); Platelet Count 85 thou/uL (130-400); Red Blood Cell (RBC) Count 2.87 mill/uL (4.20-5.40); White Blood Cell (WBC) Count 16.5 thou/uL (4.8-10.8)
[2021-06-17 07:58] LABS: Band 13 % (5-11); Eosinophils 2 % (0-10); Lymphocytes 37 % (21-51); MDiff Complete? YES; Macrocytosis SLIGHT = 6-15 cells (100X) (0-5/hpf); Monocytes 5 % (0-10); Neutrophil 43 % (42-75); Platelet Morphology Comment Appears Decreased; Polychromasia SLIGHT = 2-3 cells (100X) (0-2/hpf)
[2021-06-17] MEDS: Nystatin Powder 15 GM BOT TOP SCH ×3 (08:15→20:22)
[2021-06-17] MEDS ORDERED: traMADol HCl 50 MG TAB PO PRN (10:47)
[2021-06-17] MEDS: cefTRIAXone\\ROCEPHIN 1 GM in Sodium Chloride 0.9% 100 ML IVPB SCH (11:55)
[2021-06-17] MEDS: Benztropine 1 MG TAB PO SCH (20:21)
[2021-06-17] MEDS ORDERED: Non-Formulary Item 1 EACH (Benztropine Mesylate [Benztropine Mesylate] 0.5 MG Tablet) PO SCH (21:00)
[2021-06-17] MEDS ORDERED: Divalproex Sodium DR 500 MG TAB PO SCH (21:00)
[2021-06-17] MEDS: Divalproex Sodium 125 mg Sprinkle Capsule PO SCH (21:48)
[2021-06-18] MEDS: Levothyroxine Sodium 100 MCG TAB PO SCH (06:25)
[2021-06-18] MEDS: Sodium Chloride 0.45% 1,000 ML IV SCH ×2 (06:38→20:41)
[2021-06-18 07:51] LABS: Hemoglobin 10.7 g/dL (12.0-16.0); Mean Corpuscular HGB CONC 34.8 g/dL (32.0-36.0); Mean Corpuscular Hemoglobin 37.8 pg (27.0-31.0); Mean Platelet Volume 6.3 fL (7.4-10.4); Platelet Count 96 thou/uL (130-400); RBC Distribution Width 14.7 % (11.5-14.5); Red Blood Cell (RBC) Count 2.82 mill/uL (4.20-5.40); White Blood Cell (WBC) Count 13.5 thou/uL (4.8-10.8)
[2021-06-18 08:07] LABS: Anion Gap 10 mmol/L (10-20); BUN (Urea Nitrogen) 21 mg/dL (9.8-20.1); Calc. Creatinine Clearance 45 mL/min (70-130); Calcium 8.8 mg/dL (7.8-10.44); Carbon Dioxide 21 mmol/L (22-29); Chloride 113 mmol/L (98-107); Glucose 72 mg/dL (70-105); Potassium 3.8 mmol/L (3.5-5.1); Sodium 140 mmol/L (136-145)
[2021-06-18] MEDS ORDERED: Non-Formulary Item 1 EACH (Amiodarone Hcl [Pacerone] 100 MG Tablet) PO SCH (09:00)
[2021-06-18] MEDS ORDERED: Non-Formulary Item 1 EACH (Levothyroxine Sodium [Levothyroxine] 25 MCG Capsule) PO SCH (09:00)
[2021-06-18] MEDS: Amiodarone 200 MG TAB PO SCH (09:33)
[2021-06-18] MEDS: Divalproex Sodium 125 mg Sprinkle Capsule PO SCH ×2 (09:34→22:17)
[2021-06-18] MEDS: Aspirin 81 mg Enteric Coated Tablet PO SCH (09:34)
[2021-06-18] MEDS: Famotidine 20 MG TAB PO SCH (09:34)
[2021-06-18] MEDS: Nystatin Powder 15 GM BOT TOP SCH ×2 (09:34→15:17)
[2021-06-18 10:24] LABS: Band 6 % (5-11); Lymphocytes 46 % (21-51); MDiff Complete? YES; Metamyelocyte 1 % (0-0); Monocytes 12 % (0-10); Myelocyte 2 % (0-0); Neutrophil 33 % (42-75); Platelet Morphology Comment Appears Decreased; RBC Morphology Normal
[2021-06-18] MEDS: cefTRIAXone\\ROCEPHIN 1 GM in Sodium Chloride 0.9% 100 ML IVPB SCH (11:55)
[2021-06-18] MEDS: Benztropine 1 MG TAB PO SCH (20:42)
[2021-06-19] MEDS: Nystatin Powder 15 GM BOT TOP SCH ×3 (04:43→14:46)
[2021-06-19] MEDS: Sodium Chloride 0.45% 1,000 ML IV SCH (04:44)
[2021-06-19 04:50] VITALS: TEMP 97.9
[2021-06-19 06:06] LABS: Hemoglobin 10.8 g/dL (12.0-16.0); Mean Corpuscular HGB CONC 33.8 g/dL (32.0-36.0); Mean Platelet Volume 6.9 fL (7.4-10.4); Platelet Count 103 thou/uL (130-400); RBC Distribution Width 14.8 % (11.5-14.5); Red Blood Cell (RBC) Count 3.01 mill/uL (4.20-5.40); White Blood Cell (WBC) Count 15.8 thou/uL (4.8-10.8)
[2021-06-19] MEDS: Levothyroxine Sodium 100 MCG TAB PO SCH (06:11)
[2021-06-19 06:25] LABS: Anion Gap 11 mmol/L (10-20); BUN (Urea Nitrogen) 17 mg/dL (9.8-20.1); Calc. Creatinine Clearance 49 mL/min (70-130); Calcium 8.6 mg/dL (7.8-10.44); Carbon Dioxide 19 mmol/L (22-29); Chloride 111 mmol/L (98-107); Glucose 74 mg/dL (70-105); Potassium 3.8 mmol/L (3.5-5.1); Sodium 137 mmol/L (136-145)
[2021-06-19 07:47] LABS: Band 21 % (5-11); Eosinophils 1 % (0-10); Lymphocytes 41 % (21-51); MDiff Complete? YES; Metamyelocyte 4 % (0-0); Monocytes 2 % (0-10); Myelocyte 4 % (0-0); Neutrophil 27 % (42-75)
[2021-06-19 08:52] VITALS: BP 143/61
[2021-06-19] MEDS: Amiodarone 200 MG TAB PO SCH (09:26)
[2021-06-19] MEDS: Aspirin 81 mg Enteric Coated Tablet PO SCH (09:26)
[2021-06-19] MEDS: Divalproex Sodium 125 mg Sprinkle Capsule PO SCH (09:27)
[2021-06-19] MEDS: Famotidine 20 MG TAB PO SCH (09:27)
[2021-06-19] MEDS: cefTRIAXone\\ROCEPHIN 1 GM in Sodium Chloride 0.9% 100 ML IVPB SCH (11:55)
== END 2021-06-19 17:56 | DRG 683 ==
LOC: T4-A 06-15 02:20
PROVIDERS: ADMIT Student in an Organized Health Care Education/Training Program; ATTEND Hospitalist
DX: N17.9 Acute kidney failure, unspecified (principal); I13.0 Hypertensive heart and chronic kidney disease with heart failure and stage 1 through stage 4 chronic kidney disease, or unspecified chronic kidney disease; E87.0 Hyperosmolality and hypernatremia; N30.00 Acute cystitis without hematuria; Z20.822 Contact with and (suspected) exposure to COVID-19; Z86.16 Personal history of COVID-19; G20 Parkinson's disease; F02.80 Dementia in other diseases classified elsewhere, unspecified severity, without behavioral disturbance, psychotic disturbance, mood disturbance, and anxiety; K21.9 Gastro-esophageal reflux disease without esophagitis; E03.9 Hypothyroidism, unspecified; I50.9 Heart failure, unspecified; N18.9 Chronic kidney disease, unspecified; D69.6 Thrombocytopenia, unspecified; I48.0 Paroxysmal atrial fibrillation; F31.9 Bipolar disorder, unspecified; E86.0 Dehydration; Z88.0 Allergy status to penicillin; Z88.5 Allergy status to narcotic agent; Z79.899 Other long term (current) drug therapy; Z79.82 Long term (current) use of aspirin; Z79.890 Hormone replacement therapy; Z98.51 Tubal ligation status; Z98.890 Other specified postprocedural states
CPT/HCPCS: 36415; 36416; 71045; 80048; 81001; 85025; J0696; J3490; U0003; U0005

== ENCOUNTER 2022-12-31 10:32 | Inpatient (IN) | payer MEDICARE, MEDICAID ==
[2022-12-31 11:46] LABS: #Basophils 0.1 thou/uL (0.0-0.2); #Eosinphils 0.6 thou/uL (0.0-0.7); #Lymphocytes 4.5 thou/uL (1.20-3.40); #Monocytes 1.3 thou/uL (0.11-0.59); #Neutrophils 2.9 thou/uL (1.40-6.50); %Basophils 0.8 % (0.0-1.0); %Eosinophils 6.1 % (0.0-10.0); %Lymphocytes 48.2 % (21.0-51.0); %Monocytes 14.2 % (0.0-10.0); %Neutrophils 30.7 % (42.0-75.0); Hemoglobin 7.7 g/dL (12.0-16.0); Mean Corpuscular HGB CONC 33.5 g/dL (32.0-36.0); Mean Corpuscular Hemoglobin 36.8 pg (27.0-31.0); Mean Platelet Volume 6.3 fL (7.4-10.4); Platelet Count 162 10x3/uL (130-400); RBC Distribution Width 12.6 % (11.5-14.5); Red Blood Cell (RBC) Count 2.09 mill/uL (4.20-5.40); White Blood Cell (WBC) Count 9.3 10x3/uL (4.8-10.8)
[2022-12-31 12:00] LABS: INR-International Normal Ratio 1.1; PTT 27.1 sec (22.9-36.1)
[2022-12-31 12:03] LABS: MDiff Complete? YES; Macrocytosis MODERATE=16-30 cells (100X) (0-5/hpf); Platelet Morphology Comment Appears Adequate; Polychromasia SLIGHT = 2-3 cells (100X) (0-2/hpf)
[2022-12-31 12:09] LABS: ALT (SGPT) 7 U/L (8-55); AST (SGOT) 13 U/L (5-34); Albumin 2.4 g/dL (3.4-4.8); Alkaline Phosphatase 81 U/L (40-110); Anion Gap 13 mmol/L (10-20); BUN (Urea Nitrogen) 57 mg/dL (9.8-20.1); Bilirubin, Total 0.2 mg/dL (0.2-1.2); CK (CPK) 15 U/L (29-168); Calc. Creatinine Clearance 0 mL/min (70-130); Calcium 9.4 mg/dL (7.8-10.44); Carbon Dioxide 17 mmol/L (23-31); Chloride 111 mmol/L (98-107); Estimated GFR 9; Globulin 4.9 g/dL (2.4-3.5); Glucose 71 mg/dL (80-115); Lipase 31 U/L (8-78); Potassium 4.3 mmol/L (3.5-5.1); Protein, Total 7.3 g/dL (5.8-8.1); Sodium 137 mmol/L (136-145)
[2022-12-31] MEDS ORDERED: Ondansetron PF 4 MG/2 ML Vial IVP PRN (12:40)
[2022-12-31] MEDS ORDERED: Ondansetron ODT 4 MG TAB PO PRN (12:40)
[2022-12-31 14:16] LABS: Bacteria/HPF 3+ HPF (None Seen); Bilirubin Negative (Negative); Blood, Urine 1+ (Negative); Clarity Extra Turbid (Clear); Glucose, Urine (Dipstick) Normal (Negative); Ketone, Urine Negative (Negative); Leukocyte 500 Leu/uL (Negative); Nitrite Negative (Negative); Protein, Urine (Dipstick) 50 mg/dL (Neg-Trace); Renal Epithelial 0-3 HPF (None Seen); Squamous Epithelial None Seen HPF (0-3); Urobilinogen Normal mg/dL (Less than 2); WBC/HPF Greater than 50 HPF (0-3); pH, Urine 5.5 (5.0-9.0)
[2022-12-31] MEDS ORDERED: Benztropine 1 MG TAB PO SCH (21:30)
[2022-12-31] MEDS ORDERED: Divalproex Sodium 125 mg Sprinkle Capsule PO SCH (22:45)
[2023-01-01 04:37] LABS: #Eosinphils 0.5 thou/uL (0.0-0.7); #Lymphocytes 3.9 thou/uL (1.20-3.40); #Monocytes 1.1 thou/uL (0.11-0.59); #Neutrophils 2.3 thou/uL (1.40-6.50); %Basophils 0.4 % (0.0-1.0); %Eosinophils 6.8 % (0.0-10.0); %Lymphocytes 49.6 % (21.0-51.0); %Monocytes 13.5 % (0.0-10.0); %Neutrophils 29.7 % (42.0-75.0); Hemoglobin 9.8 g/dL (12.0-16.0); Mean Corpuscular HGB CONC 34.7 g/dL (32.0-36.0); Mean Corpuscular Hemoglobin 36.4 pg (27.0-31.0); Mean Platelet Volume 6.1 fL (7.4-10.4); Platelet Count 126 10x3/uL (130-400); RBC Distribution Width 14.9 % (11.5-14.5); Red Blood Cell (RBC) Count 2.71 mill/uL (4.20-5.40); White Blood Cell (WBC) Count 7.8 10x3/uL (4.8-10.8)
[2023-01-01 04:56] LABS: Anion Gap 15 mmol/L (10-20); BUN (Urea Nitrogen) 62 mg/dL (9.8-20.1); Calc. Creatinine Clearance 11 mL/min (70-130); Calcium 9.4 mg/dL (7.8-10.44); Carbon Dioxide 16 mmol/L (23-31); Chloride 112 mmol/L (98-107); Estimated GFR 9; Glucose 63 mg/dL (80-115); Potassium 4.3 mmol/L (3.5-5.1); Sodium 139 mmol/L (136-145)
[2023-01-01] MEDS ORDERED: Levothyroxine Sodium 100 MCG TAB PO SCH (06:00)
[2023-01-01] MEDS ORDERED: Levothyroxine Sodium 125 MCG TAB PO SCH (06:00)
[2023-01-01] MEDS: Levothyroxine Sodium 125 MCG TAB PO SCH (06:12)
[2023-01-01] MEDS ORDERED: traMADol HCl 50 MG TAB PO PRN (08:43)
[2023-01-01] MEDS ORDERED: Amiodarone 200 MG TAB PO SCH (09:00)
[2023-01-01] MEDS ORDERED: Divalproex Sodium 125 mg Sprinkle Capsule PO SCH ×3 (09:00→10:30)
[2023-01-01] MEDS: Benztropine 1 MG TAB PO SCH ×2 (10:57→20:30)
[2023-01-01] MEDS: Aspirin 81 mg Enteric Coated Tablet PO SCH (10:57)
[2023-01-01] MEDS: Aripiprazole 10 MG TAB PO SCH (10:57)
[2023-01-01] MEDS: Estradiol 0.01% Vaginal Cream 42.5 gm Tube VAG SCH (11:00)
[2023-01-01] MEDS ORDERED: cefTRIAXone\\ROCEPHIN 500 MG in Sodium Chloride 0.9% 0 ML IVPB SCH (12:30)
[2023-01-01] MEDS: cefTRIAXone\\ROCEPHIN 1 GM in Sodium Chloride 0.9% 100 ML IVPB SCH (13:42)
[2023-01-01] MEDS: Divalproex Sodium 125 mg Sprinkle Capsule PO SCH (20:31)
[2023-01-02] MEDS: Levothyroxine Sodium 125 MCG TAB PO SCH (00:51)
[2023-01-02 07:49] LABS: #Eosinphils 0.3 thou/uL (0.0-0.7); #Lymphocytes 3.2 thou/uL (1.20-3.40); #Neutrophils 2.7 thou/uL (1.40-6.50); %Basophils 0.5 % (0.0-1.0); %Eosinophils 3.5 % (0.0-10.0); %Monocytes 14.5 % (0.0-10.0); %Neutrophils 37.5 % (42.0-75.0); Hemoglobin 9.8 g/dL (12.0-16.0); Mean Corpuscular Hemoglobin 35.5 pg (27.0-31.0); Platelet Count 130 10x3/uL (130-400); RBC Distribution Width 14.6 % (11.5-14.5); Red Blood Cell (RBC) Count 2.75 mill/uL (4.20-5.40); White Blood Cell (WBC) Count 7.2 10x3/uL (4.8-10.8)
[2023-01-02 08:08] LABS: Anion Gap 10 mmol/L (10-20); BUN (Urea Nitrogen) 59 mg/dL (9.8-20.1); Calc. Creatinine Clearance 12 mL/min (70-130); Calcium 9.4 mg/dL (7.8-10.44); Carbon Dioxide 17 mmol/L (23-31); Chloride 111 mmol/L (98-107); Estimated GFR 11; Glucose 71 mg/dL (80-115); Potassium 4.3 mmol/L (3.5-5.1); Sodium 134 mmol/L (136-145)
[2023-01-02 08:27] LABS: HBSAB Concentration Less than 8.00 mIU/mL; HBSAg Index 0.17 S/CO (0-0.99); Hep B Core Total Ab Non-Reactive (NonReactive); Hep B Core Total Index 0.13 S/CO (0-0.79); Hep B Surf AB Non-Reactive (NonReactive); Hep B Surf Ag Non-Reactive S/CO (NonReactive)
[2023-01-02] MEDS: Benztropine 1 MG TAB PO SCH ×2 (09:00→21:07)
[2023-01-02] MEDS: Aspirin 81 mg Enteric Coated Tablet PO SCH (09:00)
[2023-01-02] MEDS: Divalproex Sodium 125 mg Sprinkle Capsule PO SCH ×2 (09:00→21:07)
[2023-01-02] MEDS: Aripiprazole 10 MG TAB PO SCH (09:00)
[2023-01-02] MEDS: cefTRIAXone\\ROCEPHIN 1 GM in Sodium Chloride 0.9% 100 ML IVPB SCH (12:50)
[2023-01-03] MEDS: Levothyroxine Sodium 125 MCG TAB PO SCH (05:33)
[2023-01-03 07:33] LABS: Anion Gap 11 mmol/L (10-20); BUN (Urea Nitrogen) 57 mg/dL (9.8-20.1); Calc. Creatinine Clearance 12 mL/min (70-130); Calcium 9.2 mg/dL (7.8-10.44); Carbon Dioxide 16 mmol/L (23-31); Chloride 114 mmol/L (98-107); Estimated GFR 10; Glucose 71 mg/dL (80-115); Potassium 4.1 mmol/L (3.5-5.1); Sodium 137 mmol/L (136-145)
[2023-01-03 07:34] LABS: Hemoglobin 9.2 g/dL (12.0-16.0); Mean Corpuscular HGB CONC 34.9 g/dL (32.0-36.0); Mean Corpuscular Hemoglobin 36.8 pg (27.0-31.0); RBC Distribution Width 14.3 % (11.5-14.5); Red Blood Cell (RBC) Count 2.51 mill/uL (4.20-5.40)
[2023-01-03 08:58] LABS: Band 1 % (5-11); Eosinophils 8 % (0-10); Lymphocytes 65 % (21-51); MDiff Complete? YES; Mean Platelet Volume 6.1 fL (7.4-10.4); Monocytes 10 % (0-10); Neutrophil 16 % (42-75); Platelet Count 115 10x3/uL (130-400); Vacuoles SLIGHT; White Blood Cell (WBC) Count 6.7 10x3/uL (4.8-10.8)
[2023-01-03] MEDS: Aripiprazole 10 MG TAB PO SCH (09:09)
[2023-01-03] MEDS: Aspirin 81 mg Enteric Coated Tablet PO SCH (09:10)
[2023-01-03] MEDS: Benztropine 1 MG TAB PO SCH ×2 (09:10→20:21)
[2023-01-03] MEDS: Divalproex Sodium 125 mg Sprinkle Capsule PO SCH ×2 (09:12→20:21)
[2023-01-03] MEDS ORDERED: Lidocaine 2% PF 5 ML VIAL ONE (10:58)
[2023-01-03] MEDS ORDERED: Bupivacaine HCl 0.5%/Epinephrine 1:200,000/PF 30 ml Vial ONE (10:58)
[2023-01-03] MEDS ORDERED: fentaNYL 50 mcg/mL 1 mL Vial ONE ×2 (11:05→14:07)
[2023-01-03] MEDS ORDERED: cefTRIAXone (ROCEPHIN) 1 GM VIAL ONE (12:40)
[2023-01-03] MEDS ORDERED: Sodium Chloride 0.9% 100 ML ONE (12:40)
[2023-01-03] MEDS ORDERED: Ondansetron PF 4 MG/2 ML Vial ONE (13:08)
[2023-01-03] MEDS ORDERED: PROPOFOL 200 MG/20 ML VIAL ONE (13:08)
[2023-01-03] MEDS ORDERED: ePHEDrine Sulfate 50 MG/10 ML VIAL ONE (13:08)
[2023-01-03] MEDS ORDERED: Promethazine HCl 25 MG/ML VIAL IM PRN (13:59)
[2023-01-03] MEDS ORDERED: Ondansetron HCl/PF 4 MG/2 ML Vial IVP PRN (13:59)
[2023-01-03] MEDS: cefTRIAXone\\ROCEPHIN 1 GM in Sodium Chloride 0.9% 100 ML IVPB SCH (16:26)
[2023-01-03] MEDS ORDERED: Tuberculin PPD 0.1 ML VIAL I-DERMAL SCH (17:00)
[2023-01-04] MEDS: Levothyroxine Sodium 125 MCG TAB PO SCH (05:28)
[2023-01-04 06:56] LABS: Hemoglobin 8.6 g/dL (12.0-16.0); Mean Platelet Volume 6.2 fL (7.4-10.4); Platelet Count 134 10x3/uL (130-400); Red Blood Cell (RBC) Count 2.46 mill/uL (4.20-5.40); White Blood Cell (WBC) Count 6.8 10x3/uL (4.8-10.8)
[2023-01-04 06:57] LABS: Anion Gap 12 mmol/L (10-20); BUN (Urea Nitrogen) 30 mg/dL (9.8-20.1); Calc. Creatinine Clearance 17 mL/min (70-130); Calcium 8.7 mg/dL (7.8-10.44); Carbon Dioxide 22 mmol/L (23-31); Chloride 105 mmol/L (98-107); Estimated GFR 16; Glucose 69 mg/dL (80-115); Potassium 3.8 mmol/L (3.5-5.1); Sodium 135 mmol/L (136-145)
[2023-01-04] MEDS: Aripiprazole 10 MG TAB PO SCH ×2 (09:32→12:47)
[2023-01-04] MEDS: Aspirin 81 mg Enteric Coated Tablet PO SCH ×2 (09:34→12:48)
[2023-01-04] MEDS: Benztropine 1 MG TAB PO SCH ×3 (09:34→20:44)
[2023-01-04] MEDS: Divalproex Sodium 125 mg Sprinkle Capsule PO SCH ×3 (09:35→20:44)
[2023-01-04] MEDS ORDERED: Albumin 25% 25 GM/100 ML BOT IVPB PRN (09:58)
[2023-01-04 11:04] LABS: Band 11 % (5-11); Eosinophils 1 % (0-10); Lymphocytes 45 % (21-51); MDiff Complete? YES; Monocytes 14 % (0-10); Myelocyte 2 % (0-0); Neutrophil 26 % (42-75); Platelet Morphology Comment Appears Adequate; Polychromasia SLIGHT = 2-3 cells (100X) (0-2/hpf)
[2023-01-04] MEDS: cefTRIAXone\\ROCEPHIN 1 GM in Sodium Chloride 0.9% 100 ML IVPB SCH (12:49)
[2023-01-04] MEDS: Estradiol 0.01% Vaginal Cream 42.5 gm Tube VAG SCH (12:49)
[2023-01-05] MEDS: Levothyroxine Sodium 125 MCG TAB PO SCH (05:50)
[2023-01-05 07:34] LABS: Hemoglobin 8.3 g/dL (12.0-16.0); Mean Corpuscular HGB CONC 32.1 g/dL (32.0-36.0); Mean Corpuscular Hemoglobin 34.1 pg (27.0-31.0); Mean Platelet Volume 6.6 fL (7.4-10.4); Platelet Count 119 10x3/uL (130-400); RBC Distribution Width 14.1 % (11.5-14.5); Red Blood Cell (RBC) Count 2.42 mill/uL (4.20-5.40); White Blood Cell (WBC) Count 6.4 10x3/uL (4.8-10.8)
[2023-01-05 08:04] LABS: Anion Gap 8 mmol/L (10-20); BUN (Urea Nitrogen) 16 mg/dL (9.8-20.1); Calc. Creatinine Clearance 23 mL/min (70-130); Calcium 9.3 mg/dL (7.8-10.44); Carbon Dioxide 27 mmol/L (23-31); Chloride 103 mmol/L (98-107); Estimated GFR 22; Glucose 78 mg/dL (80-115); Sodium 134 mmol/L (136-145)
[2023-01-05] MEDS ORDERED: Heparin 10,000 UNITS/ 10 ML VIAL ONE (08:49)
[2023-01-05 09:14] LABS: Band 1 % (5-11); Eosinophils 6 % (0-10); Lymphocytes 53 % (21-51); MDiff Complete? YES; Macrocytosis SLIGHT = 6-15 cells (100X) (0-5/hpf); Monocytes 8 % (0-10); Neutrophil 32 % (42-75); Platelet Morphology Comment Appears Decreased; Small Platelets SLIGHT
[2023-01-05 12:05] LABS: Hep C IgG Ab Non-Reactive (NonReactive)
[2023-01-05] MEDS: Aripiprazole 10 MG TAB PO SCH (13:14)
[2023-01-05] MEDS: Aspirin 81 mg Enteric Coated Tablet PO SCH (13:14)
[2023-01-05] MEDS: Divalproex Sodium 125 mg Sprinkle Capsule PO SCH ×2 (13:14→19:58)
[2023-01-05] MEDS: cefTRIAXone\\ROCEPHIN 1 GM in Sodium Chloride 0.9% 100 ML IVPB SCH (13:15)
[2023-01-05] MEDS: Benztropine 1 MG TAB PO SCH ×2 (13:15→19:58)
[2023-01-05] MEDS ORDERED: EPOETIN ALFA-EPBX (ESRD) 40,000 UNIT/ML VIAL SC SCH (13:45)
[2023-01-05] MEDS: Acetaminophen 325 MG TAB PO PRN (19:59)
[2023-01-06] MEDS: Levothyroxine Sodium 125 MCG TAB PO SCH (06:02)
[2023-01-06] MEDS: Aripiprazole 10 MG TAB PO SCH (08:33)
[2023-01-06] MEDS: Benztropine 1 MG TAB PO SCH ×2 (08:33→21:22)
[2023-01-06] MEDS: Divalproex Sodium 125 mg Sprinkle Capsule PO SCH ×2 (08:33→21:23)
[2023-01-06] MEDS: Aspirin 81 mg Enteric Coated Tablet PO SCH (08:34)
[2023-01-06] MEDS: Estradiol 0.01% Vaginal Cream 42.5 gm Tube VAG SCH (08:34)
[2023-01-06] MEDS ORDERED: READ PPD TEST SITE PO SCH (09:00)
[2023-01-06] MEDS: cefTRIAXone\\ROCEPHIN 1 GM in Sodium Chloride 0.9% 100 ML IVPB SCH (13:19)
[2023-01-07] MEDS: Levothyroxine Sodium 125 MCG TAB PO SCH (05:38)
[2023-01-07] MEDS: Aripiprazole 10 MG TAB PO SCH (07:51)
[2023-01-07] MEDS: Benztropine 1 MG TAB PO SCH ×2 (07:51→20:12)
[2023-01-07] MEDS: Divalproex Sodium 125 mg Sprinkle Capsule PO SCH ×2 (07:52→20:13)
[2023-01-07] MEDS: Aspirin 81 mg Enteric Coated Tablet PO SCH (07:52)
[2023-01-07] MEDS ORDERED: Midodrine HCl 5 MG TAB PO SCH (08:45)
[2023-01-07] MEDS: cefTRIAXone\\ROCEPHIN 1 GM in Sodium Chloride 0.9% 100 ML IVPB SCH (14:18)
[2023-01-07] MEDS: Midodrine HCl 5 MG TAB PO SCH ×2 (14:19→20:13)
[2023-01-08] MEDS: Levothyroxine Sodium 125 MCG TAB PO SCH (05:09)
[2023-01-08] MEDS: Acetaminophen 325 MG TAB PO PRN (05:10)
[2023-01-08] MEDS: Benztropine 1 MG TAB PO SCH ×2 (09:44→22:00)
[2023-01-08] MEDS: Divalproex Sodium 125 mg Sprinkle Capsule PO SCH ×2 (09:44→22:30)
[2023-01-08] MEDS: Midodrine HCl 5 MG TAB PO SCH ×3 (09:44→22:00)
[2023-01-08] MEDS: Aripiprazole 10 MG TAB PO SCH (09:44)
[2023-01-08] MEDS: Aspirin 81 mg Enteric Coated Tablet PO SCH (09:44)
[2023-01-08] MEDS: Estradiol 0.01% Vaginal Cream 42.5 gm Tube VAG SCH (11:18)
[2023-01-08] MEDS: cefTRIAXone\\ROCEPHIN 1 GM in Sodium Chloride 0.9% 100 ML IVPB SCH (14:27)
[2023-01-09] MEDS: Levothyroxine Sodium 125 MCG TAB PO SCH (05:47)
[2023-01-09] MEDS: Benztropine 1 MG TAB PO SCH ×2 (07:56→21:02)
[2023-01-09] MEDS: Midodrine HCl 5 MG TAB PO SCH ×3 (07:57→21:02)
[2023-01-09] MEDS ORDERED: Sodium Chloride 0.65% Nasal 44 ML BOT EA NARE PRN (09:26)
[2023-01-09] MEDS: Aspirin 81 mg Enteric Coated Tablet PO SCH (14:40)
[2023-01-09] MEDS: Divalproex Sodium 125 mg Sprinkle Capsule PO SCH ×2 (14:40→21:02)
[2023-01-09] MEDS: Aripiprazole 10 MG TAB PO SCH (14:40)
[2023-01-10] MEDS: Levothyroxine Sodium 125 MCG TAB PO SCH (05:16)
[2023-01-10] MEDS: Divalproex Sodium 125 mg Sprinkle Capsule PO SCH ×2 (09:55→20:39)
[2023-01-10] MEDS: Aripiprazole 10 MG TAB PO SCH (09:56)
[2023-01-10] MEDS: Benztropine 1 MG TAB PO SCH ×2 (09:56→20:39)
[2023-01-10] MEDS: Midodrine HCl 5 MG TAB PO SCH ×3 (09:56→20:39)
[2023-01-10] MEDS: Aspirin 81 mg Enteric Coated Tablet PO SCH (09:56)
[2023-01-11] MEDS: Divalproex Sodium 125 mg Sprinkle Capsule PO SCH ×2 (09:04→21:13)
[2023-01-11] MEDS: Benztropine 1 MG TAB PO SCH ×2 (09:05→20:54)
[2023-01-11] MEDS: Aspirin 81 mg Enteric Coated Tablet PO SCH (09:05)
[2023-01-11] MEDS: Midodrine HCl 5 MG TAB PO SCH ×3 (09:05→20:54)
[2023-01-11] MEDS: Aripiprazole 10 MG TAB PO SCH (09:05)
[2023-01-11] MEDS: Estradiol 0.01% Vaginal Cream 42.5 gm Tube VAG SCH (09:33)
[2023-01-11] MEDS ORDERED: Heparin 10,000 UNITS/ 10 ML VIAL ONE (11:54)
[2023-01-11 11:58] LABS: Anion Gap 11 mmol/L (10-20); BUN (Urea Nitrogen) 25 mg/dL (9.8-20.1); Calc. Creatinine Clearance 15 mL/min (70-130); Calcium 9.7 mg/dL (7.8-10.44); Carbon Dioxide 25 mmol/L (23-31); Chloride 104 mmol/L (98-107); Estimated GFR 13; Glucose 84 mg/dL (80-115); Potassium 3.9 mmol/L (3.5-5.1); Sodium 136 mmol/L (136-145)
[2023-01-11 15:04] VITALS: BMI 24.7
[2023-01-12] MEDS: Acetaminophen 325 MG TAB PO PRN (01:16)
[2023-01-12] MEDS: Levothyroxine Sodium 125 MCG TAB PO SCH (04:58)
[2023-01-12] MEDS: Aripiprazole 10 MG TAB PO SCH (08:48)
[2023-01-12] MEDS: Benztropine 1 MG TAB PO SCH (08:49)
[2023-01-12] MEDS: Aspirin 81 mg Enteric Coated Tablet PO SCH (08:49)
[2023-01-12] MEDS: Divalproex Sodium 125 mg Sprinkle Capsule PO SCH (08:49)
[2023-01-12] MEDS: Midodrine HCl 5 MG TAB PO SCH (08:49)
[2023-01-12 11:11] VITALS: BP 107/67; TEMP 98.1
== END 2023-01-12 11:54 | DRG 674 ==
LOC: ERS 10:32 → OBSVTOIN 12:40 → 2NO 12:40 → T4-B 01-01 12:55
PROVIDERS: ADMIT Internal Medicine; ATTEND Internal Medicine
PROC: 30233N1 Transfusion of Nonautologous Red Blood Cells into Peripheral Vein, Percutaneous Approach (ICD-10-PCS; principal; 2022-12-31)
PROC: 0JH63XZ Insertion of Tunneled Vascular Access Device into Chest Subcutaneous Tissue and Fascia, Percutaneous Approach (ICD-10-PCS; 2023-01-03)
PROC: 5A1D70Z Performance of Urinary Filtration, Intermittent, Less than 6 Hours Per Day (ICD-10-PCS; 2023-01-03)
PROC: 02HV33Z Insertion of Infusion Device into Superior Vena Cava, Percutaneous Approach (ICD-10-PCS; 2023-01-03)
PROC: B5181ZA Fluoroscopy of Superior Vena Cava using Low Osmolar Contrast, Guidance (ICD-10-PCS; 2023-01-03)
DX: N17.9 Acute kidney failure, unspecified (principal); E87.1 Hypo-osmolality and hyponatremia; I13.2 Hypertensive heart and chronic kidney disease with heart failure and with stage 5 chronic kidney disease, or end stage renal disease; E87.20 Acidosis, unspecified; N39.0 Urinary tract infection, site not specified; I50.32 Chronic diastolic (congestive) heart failure; N18.6 End stage renal disease; N25.81 Secondary hyperparathyroidism of renal origin; K21.9 Gastro-esophageal reflux disease without esophagitis; E03.9 Hypothyroidism, unspecified; G20 Parkinson's disease; E78.00 Pure hypercholesterolemia, unspecified; E88.09 Other disorders of plasma-protein metabolism, not elsewhere classified; I95.9 Hypotension, unspecified; D63.1 Anemia in chronic kidney disease; I48.91 Unspecified atrial fibrillation; F31.9 Bipolar disorder, unspecified; Z88.6 Allergy status to analgesic agent; Z88.0 Allergy status to penicillin; Z79.82 Long term (current) use of aspirin; Z79.899 Other long term (current) drug therapy; Z79.890 Hormone replacement therapy; Z98.51 Tubal ligation status
CPT/HCPCS: 36415; 36430; 51701; 71045; 80048; 80053; 81003; 81015; 82274; 82550; 83690; 83880; 84484; 85025; 85610; 85730; 86580; 86704; 86850; 86900; 86901; 87077; 87086; 87186; 90935; 93005; 93306; C1752; G0257; J0696; J1642; J1644; J2001; J2405; J2704; J3010; J3490; P9016; Q5105; U0003; U0005

== ENCOUNTER 2023-03-15 21:02 | Observation (INO) | payer MEDICARE, MEDICAID ==
[~2023-03-15 21:02] MED LIST: Iopamidol-370 76% 500 ML MDV (1 ML CHARGE) ONE
[2023-03-15 22:00] LABS: #Eosinphils 0.1 thou/uL (0.0-0.7); #Monocytes 1.5 thou/uL (0.11-0.59); #Neutrophils 4.7 thou/uL (1.40-6.50); %Basophils 0.1 % (0.0-1.0); %Eosinophils 0.7 % (0.0-10.0); %Lymphocytes 30.4 % (21.0-51.0); %Monocytes 16.3 % (0.0-10.0); %Neutrophils 52.1 % (42.0-75.0); Hemoglobin 11.2 g/dL (12.0-16.0); Mean Corpuscular HGB CONC 31.8 g/dL (32.0-36.0); Mean Platelet Volume 9.1 fL (7.4-10.4); Platelet Count 216 10x3/uL (130-400); RBC Distribution Width 13.2 % (11.5-14.5); Red Blood Cell (RBC) Count 3.29 mill/uL (4.20-5.40); White Blood Cell (WBC) Count 9.1 10x3/uL (4.8-10.8)
[2023-03-15 22:19] LABS: ALT (SGPT) 7 U/L (8-55); AST (SGOT) 12 U/L (5-34); Albumin 3.1 g/dL (3.4-4.8); Alkaline Phosphatase 107 U/L (40-110); Anion Gap 14 mmol/L (10-20); BUN (Urea Nitrogen) 29 mg/dL (9.8-20.1); Bilirubin, Total 0.2 mg/dL (0.2-1.2); Calc. Creatinine Clearance 0 mL/min (70-130); Calcium 9.7 mg/dL (7.8-10.44); Carbon Dioxide 24 mmol/L (23-31); Chloride 105 mmol/L (98-107); Estimated GFR 18; Globulin 4.5 g/dL (2.4-3.5); Glucose 106 mg/dL (80-115); Lipase 27 U/L (8-78); Magnesium 1.8 mg/dL (1.6-2.6); Protein, Total 7.6 g/dL (5.8-8.1); Sodium 139 mmol/L (136-145)
[2023-03-16 02:51] LABS: Troponin I Less than 0.010 ng/mL (< 0.028)
[2023-03-16] MEDS ORDERED: Ondansetron PF 4 MG/2 ML Vial IVP PRN (04:45)
[2023-03-16] MEDS ORDERED: Ondansetron ODT 4 MG TAB SL PRN (04:45)
[2023-03-16] MEDS ORDERED: Acetaminophen 325 MG TAB PO PRN (04:52)
[2023-03-16 04:53] VITALS: BMI 32.6
[2023-03-16] MEDS ORDERED: Ipratropium/Albuterol 3 ML NEB EZPAP PRN (04:55)
[2023-03-16 05:31] LABS: #Monocytes 1.1 thou/uL (0.11-0.59); #Neutrophils 3.2 thou/uL (1.40-6.50); %Basophils 0.2 % (0.0-1.0); %Eosinophils 0.5 % (0.0-10.0); %Lymphocytes 32.8 % (21.0-51.0); %Monocytes 16.5 % (0.0-10.0); %Neutrophils 49.7 % (42.0-75.0); Hemoglobin 10.5 g/dL (12.0-16.0); Mean Corpuscular HGB CONC 31.8 g/dL (32.0-36.0); Mean Corpuscular Hemoglobin 34.3 pg (27.0-31.0); Mean Corpuscular Volume 107.8 fl (78.0-98.0); Mean Platelet Volume 9.1 fL (7.4-10.4); Platelet Count 170 10x3/uL (130-400); RBC Distribution Width 13.3 % (11.5-14.5); Red Blood Cell (RBC) Count 3.06 mill/uL (4.20-5.40); White Blood Cell (WBC) Count 6.5 10x3/uL (4.8-10.8)
[2023-03-16 05:54] LABS: Anion Gap 10 mmol/L (10-20); BUN (Urea Nitrogen) 31 mg/dL (9.8-20.1); Calc. Creatinine Clearance 22 mL/min (70-130); Calcium 9.6 mg/dL (7.8-10.44); Carbon Dioxide 26 mmol/L (23-31); Cardiac Risk 4.3 (Less than 4.5); Chloride 103 mmol/L (98-107); Cholesterol 147 mg/dl (< 200 Desired); Estimated GFR 15; Glucose 84 mg/dL (80-115); HDL Cholesterol 34 mg/dL (>60 Neg Risk); LDL Cholesterol, Calculated 95 mg/dL; Potassium 3.7 mmol/L (3.5-5.1); Sodium 135 mmol/L (136-145); Triglycerides 91 mg/dL (Less than 150)
[2023-03-16 05:58] LABS: Troponin I Less than 0.010 ng/mL (< 0.028)
[2023-03-16 08:02] LABS: Hemoglobin A1c 4.1 % (4.0-6.0)
[2023-03-16] MEDS ORDERED: ADENOSINE 60 MG/20 ML SDV ONE (08:31)
[2023-03-16] MEDS ORDERED: Divalproex Sodium 125 mg Sprinkle Capsule PO SCH (09:00)
[2023-03-16] MEDS: Midodrine HCl 5 MG TAB PO SCH ×3 (13:35→22:01)
[2023-03-16] MEDS: Aspirin 81 mg Enteric Coated Tablet PO SCH (14:14)
[2023-03-16] MEDS: Heparin 5,000 UNITS/ML VIAL SC SCH ×2 (14:15→22:01)
[2023-03-16] MEDS: Divalproex Sodium DR 500 MG TAB PO SCH (14:15)
[2023-03-16] MEDS: Nystatin Powder 15 GM BOT TOP SCH (22:09)
[2023-03-17 05:11] LABS: #Eosinphils 0.1 thou/uL (0.0-0.7); #Neutrophils 2.2 thou/uL (1.40-6.50); %Basophils 0.3 % (0.0-1.0); %Eosinophils 1.5 % (0.0-10.0); %Lymphocytes 49.6 % (21.0-51.0); %Monocytes 15.1 % (0.0-10.0); %Neutrophils 33.2 % (42.0-75.0); Hemoglobin 10.4 g/dL (12.0-16.0); Mean Corpuscular HGB CONC 31.6 g/dL (32.0-36.0); Mean Corpuscular Hemoglobin 33.7 pg (27.0-31.0); Mean Corpuscular Volume 106.5 fl (78.0-98.0); Mean Platelet Volume 9.4 fL (7.4-10.4); Platelet Count 167 10x3/uL (130-400); Red Blood Cell (RBC) Count 3.09 mill/uL (4.20-5.40); White Blood Cell (WBC) Count 6.6 10x3/uL (4.8-10.8)
[2023-03-17 05:42] LABS: Anion Gap 12 mmol/L (10-20); BUN (Urea Nitrogen) 43 mg/dL (9.8-20.1); Calc. Creatinine Clearance 16 mL/min (70-130); Calcium 9.7 mg/dL (7.8-10.44); Carbon Dioxide 22 mmol/L (23-31); Chloride 105 mmol/L (98-107); Estimated GFR 11; Glucose 72 mg/dL (80-115); Magnesium 2.1 mg/dL (1.6-2.6); Sodium 135 mmol/L (136-145)
[2023-03-17 07:37] VITALS: TEMP 97.9
[2023-03-17] MEDS ORDERED: Heparin 10,000 UNITS/ 10 ML VIAL ONE (08:40)
[2023-03-17 09:18] LABS: HBSAB Concentration Less than 8.00 mIU/mL; HBSAg Index 0.21 S/CO (0-0.99); Hep B Core Total Ab Non-Reactive (NonReactive); Hep B Core Total Index 0.13 S/CO (0-0.79); Hep B Surf AB Non-Reactive (NonReactive); Hep B Surf Ag Non-Reactive S/CO (NonReactive); Hep C IgG Ab Non-Reactive S/CO (NonReactive); Hep C Index 0.12 S/CO (0-0.79)
[2023-03-17] MEDS: Heparin 5,000 UNITS/ML VIAL SC SCH (09:55)
[2023-03-17] MEDS: Midodrine HCl 5 MG TAB PO SCH (09:55)
[2023-03-17] MEDS: Nystatin Powder 15 GM BOT TOP SCH (09:55)
[2023-03-17] MEDS: Divalproex Sodium DR 500 MG TAB PO SCH (09:56)
[2023-03-17] MEDS: Aspirin 81 mg Enteric Coated Tablet PO SCH (09:56)
[2023-03-17 16:10] VITALS: BP 107/74
== END 2023-03-17 16:08 ==
LOC: ERS 21:02 → NEURO 03-16 01:50
PROVIDERS: ADMIT Internal Medicine; ATTEND Internal Medicine
DX: R07.9 Chest pain, unspecified (principal); I13.2 Hypertensive heart and chronic kidney disease with heart failure and with stage 5 chronic kidney disease, or end stage renal disease; I50.32 Chronic diastolic (congestive) heart failure; N18.6 End stage renal disease; I48.91 Unspecified atrial fibrillation; E78.5 Hyperlipidemia, unspecified; D64.9 Anemia, unspecified; Z99.2 Dependence on renal dialysis; Z79.82 Long term (current) use of aspirin; Z79.899 Other long term (current) drug therapy; Z88.0 Allergy status to penicillin; Z88.6 Allergy status to analgesic agent
CPT/HCPCS: 71275; 78452; 80048 ×2; 80053; 80061; 83036; 83690; 83735 ×2; 83880; 84145; 84484 ×3; 85025 ×3; 86704; 93005; 93017; 93971; 97530; A9500; G0378 ×3; 36415; 90935; 96365; G0257; J0153; J1644; J1956; Q9967

== ENCOUNTER 2023-05-29 09:59 | Inpatient (IN) | payer MEDICARE, MEDICAID ==
[2023-05-29] MEDS ORDERED: Senokot S 8.6-50 MG TAB PO PRN (14:03)
[2023-05-29] MEDS ORDERED: Acetaminophen 325 MG TAB PO PRN (14:03)
[2023-05-29] MEDS ORDERED: Bisacodyl 10 MG SUPP PR PRN (14:03)
[2023-05-29] MEDS ORDERED: Ondansetron PF 4 MG/2 ML Vial IVP PRN (14:03)
[2023-05-29] MEDS ORDERED: Bisacodyl 5 MG TAB PO PRN (14:03)
[2023-05-29 15:14] LABS: Troponin I 0.012 ng/mL (< 0.028)
[2023-05-29 18:04] LABS: Troponin I Less than 0.010 ng/mL (< 0.028)
[2023-05-29] MEDS ORDERED: Communication Order-Pharmacy FS SCH (20:11)
[2023-05-29] MEDS ORDERED: Amiodarone 150 MG in Dextrose 5% in Water 100 ML IVPB SCH (20:15)
[2023-05-29] MEDS: Midodrine HCl 5 MG TAB PO SCH (21:56)
[2023-05-29] MEDS: Benztropine 1 MG TAB PO SCH (21:56)
[2023-05-29 22:05] LABS: Hematocrit 31.8 % (36.0-47.0); Hemoglobin 10.1 g/dL (12.0-16.0); Platelet Count 135 10x3/uL (130-400)
[2023-05-29] MEDS: Amiodarone 450 MG in Dextrose 5% in Water 250 ML IVPB SCH (22:33)
[2023-05-30] MEDS: cefTRIAXone\\ROCEPHIN 1 GM in Sodium Chloride 0.9% 100 ML IVPB SCH (03:20)
[2023-05-30 04:27] LABS: #Eosinphils 0.1 thou/uL (0.0-0.7); #Monocytes 0.9 thou/uL (0.11-0.59); %Basophils 0.3 % (0.0-1.0); %Eosinophils 2.3 % (0.0-10.0); %Lymphocytes 50.3 % (21.0-51.0); %Monocytes 14.7 % (0.0-10.0); %Neutrophils 32.2 % (42.0-75.0); Hematocrit 31.4 % (36.0-47.0); Mean Corpuscular HGB CONC 31.8 g/dL (32.0-36.0); Mean Corpuscular Hemoglobin 35.1 pg (27.0-31.0); Mean Corpuscular Volume 110.2 fl (78.0-98.0); Mean Platelet Volume 9.2 fL (7.4-10.4); Platelet Count 148 10x3/uL (130-400); RBC Distribution Width 13.2 % (11.5-14.5); Red Blood Cell (RBC) Count 2.85 mill/uL (4.20-5.40); White Blood Cell (WBC) Count 6.1 10x3/uL (4.8-10.8)
[2023-05-30 04:36] LABS: Delete Auto Diff?? NO; Hemoglobin A1c 4.1 % (4.0-6.0)
[2023-05-30 04:54] LABS: ALT (SGPT) Less than 7 U/L (8-55); AST (SGOT) 14 U/L (5-34); Alkaline Phosphatase 97 U/L (40-110); Anion Gap 16 mmol/L (10-20); BUN (Urea Nitrogen) 44 mg/dL (9.8-20.1); Bilirubin, Direct 0.2 mg/dL (0.1-0.3); Bilirubin, Total 0.3 mg/dL (0.2-1.2); Calc. Creatinine Clearance 14 mL/min (70-130); Calcium 9.2 mg/dL (7.8-10.44); Carbon Dioxide 20 mmol/L (23-31); Cardiac Risk 3.9 (Less than 4.5); Chloride 104 mmol/L (98-107); Cholesterol 152 mg/dl (< 200 Desired); Estimated GFR 11; Glucose 76 mg/dL (80-115); HDL Cholesterol 39 mg/dL (>60 Neg Risk); LDL Cholesterol, Calculated 94 mg/dL; Magnesium 2.1 mg/dL (1.6-2.6); Potassium 4.1 mmol/L (3.5-5.1); Protein, Total 7.3 g/dL (5.8-8.1); Sodium 136 mmol/L (136-145); Triglycerides 95 mg/dL (Less than 150)
[2023-05-30] MEDS: Levothyroxine Sodium 125 MCG TAB PO SCH (05:51)
[2023-05-30 08:13] LABS: Legionella Urinary Ag Negative (Negative)
[2023-05-30 08:14] LABS: Strep pneumo Urine Ag NEGATIVE (NEGATIVE)
[2023-05-30] MEDS: Doxycycline 100 MG CAP PO SCH ×2 (09:01→20:20)
[2023-05-30] MEDS: Aspirin 81 mg Enteric Coated Tablet PO SCH (09:01)
[2023-05-30] MEDS: Midodrine HCl 5 MG TAB PO SCH ×3 (09:01→20:21)
[2023-05-30] MEDS: Aripiprazole 10 MG TAB PO SCH (09:01)
[2023-05-30] MEDS: Folic Acid/Vit B Comp W-C PO SCH (09:01)
[2023-05-30] MEDS: Benztropine 1 MG TAB PO SCH ×2 (09:02→20:21)
[2023-05-30] MEDS: Divalproex Sodium 125 mg Sprinkle Capsule PO SCH (09:02)
[2023-05-30] MEDS: Amiodarone 450 MG in Dextrose 5% in Water 250 ML IVPB SCH (09:03)
[2023-05-30] MEDS ORDERED: Amiodarone 200 MG TAB PO SCH (10:15)
[2023-05-30] MEDS: Amiodarone 200 MG TAB PO SCH ×2 (14:53→20:21)
[2023-05-31] MEDS: cefTRIAXone\\ROCEPHIN 1 GM in Sodium Chloride 0.9% 100 ML IVPB SCH (04:19)
[2023-05-31 05:09] LABS: #Eosinphils 0.1 thou/uL (0.0-0.7); #Monocytes 0.9 thou/uL (0.11-0.59); %Basophils 0.3 % (0.0-1.0); %Monocytes 12.5 % (0.0-10.0); %Neutrophils 42.8 % (42.0-75.0); Hematocrit 30.3 % (36.0-47.0); Hemoglobin 9.9 g/dL (12.0-16.0); Mean Corpuscular HGB CONC 32.7 g/dL (32.0-36.0); Mean Corpuscular Hemoglobin 35.2 pg (27.0-31.0); Mean Corpuscular Volume 107.8 fl (78.0-98.0); Mean Platelet Volume 9.6 fL (7.4-10.4); Platelet Count 150 10x3/uL (130-400); RBC Distribution Width 13.1 % (11.5-14.5); Red Blood Cell (RBC) Count 2.81 mill/uL (4.20-5.40)
[2023-05-31] MEDS: Levothyroxine Sodium 125 MCG TAB PO SCH (05:29)
[2023-05-31 05:38] LABS: Anion Gap 13 mmol/L (10-20); BUN (Urea Nitrogen) 55 mg/dL (9.8-20.1); Calc. Creatinine Clearance 12 mL/min (70-130); Calcium 9.1 mg/dL (7.8-10.44); Carbon Dioxide 18 mmol/L (23-31); Chloride 107 mmol/L (98-107); Estimated GFR 9; Glucose 75 mg/dL (80-115); Magnesium 2.1 mg/dL (1.6-2.6); Potassium 4.3 mmol/L (3.5-5.1); Sodium 134 mmol/L (136-145)
[2023-05-31] MEDS: Folic Acid/Vit B Comp W-C PO SCH (08:51)
[2023-05-31] MEDS: Divalproex Sodium 125 mg Sprinkle Capsule PO SCH (08:51)
[2023-05-31] MEDS: Aripiprazole 10 MG TAB PO SCH (08:52)
[2023-05-31] MEDS: Aspirin 81 mg Enteric Coated Tablet PO SCH (08:52)
[2023-05-31] MEDS: Benztropine 1 MG TAB PO SCH ×2 (08:52→20:49)
[2023-05-31] MEDS: Midodrine HCl 5 MG TAB PO SCH ×3 (08:52→20:49)
[2023-05-31] MEDS: Amiodarone 200 MG TAB PO SCH ×3 (08:52→20:48)
[2023-05-31] MEDS: Doxycycline 100 MG CAP PO SCH (08:52)
[2023-05-31 12:02] LABS: HBSAB Concentration Less than 8.00 mIU/mL; HBSAg Index 0.27 S/CO (0-0.99); Hep B Core Total Ab Non-Reactive (NonReactive); Hep B Core Total Index 0.23 S/CO (0-0.79); Hep B Surf AB Non-Reactive (NonReactive); Hep B Surf Ag Non-Reactive S/CO (NonReactive); Hep C IgG Ab Non-Reactive S/CO (NonReactive); Hep C Index 0.08 S/CO (0-0.79)
[2023-05-31 13:12] VITALS: BMI 28.1
[2023-05-31] MEDS: Apixaban 5 MG TAB PO SCH (20:49)
[2023-05-31] MEDS ORDERED: Apixaban 2.5 MG TAB PO SCH (21:00)
[2023-06-01] MEDS: Levothyroxine Sodium 125 MCG TAB PO SCH (05:08)
[2023-06-01 06:34] LABS: #Eosinphils 0.1 thou/uL (0.0-0.7); #Monocytes 1.5 thou/uL (0.11-0.59); #Neutrophils 4.1 thou/uL (1.40-6.50); %Basophils 0.2 % (0.0-1.0); %Eosinophils 1.2 % (0.0-10.0); %Lymphocytes 29.2 % (21.0-51.0); %Monocytes 18.3 % (0.0-10.0); %Neutrophils 50.5 % (42.0-75.0); Hematocrit 30.6 % (36.0-47.0); Mean Corpuscular HGB CONC 32.7 g/dL (32.0-36.0); Mean Corpuscular Hemoglobin 35.1 pg (27.0-31.0); Mean Corpuscular Volume 107.4 fl (78.0-98.0); Mean Platelet Volume 9.5 fL (7.4-10.4); Platelet Count 160 10x3/uL (130-400); RBC Distribution Width 12.9 % (11.5-14.5); Red Blood Cell (RBC) Count 2.85 mill/uL (4.20-5.40); White Blood Cell (WBC) Count 8.1 10x3/uL (4.8-10.8)
[2023-06-01 07:04] LABS: Anion Gap 14 mmol/L (10-20); BUN (Urea Nitrogen) 20 mg/dL (9.8-20.1); Calc. Creatinine Clearance 20 mL/min (70-130); Calcium 9.2 mg/dL (7.8-10.44); Carbon Dioxide 24 mmol/L (23-31); Chloride 101 mmol/L (98-107); Estimated GFR 17; Glucose 87 mg/dL (80-115); Magnesium 1.8 mg/dL (1.6-2.6); Potassium 3.8 mmol/L (3.5-5.1); Sodium 135 mmol/L (136-145)
[2023-06-01] MEDS: Folic Acid/Vit B Comp W-C PO SCH (08:23)
[2023-06-01] MEDS: Aspirin 81 mg Enteric Coated Tablet PO SCH (08:23)
[2023-06-01] MEDS: Benztropine 1 MG TAB PO SCH ×2 (08:23→19:35)
[2023-06-01] MEDS: Midodrine HCl 5 MG TAB PO SCH ×3 (08:24→19:35)
[2023-06-01] MEDS: Divalproex Sodium 125 mg Sprinkle Capsule PO SCH (08:24)
[2023-06-01] MEDS: Apixaban 5 MG TAB PO SCH ×2 (08:24→19:35)
[2023-06-01] MEDS: Amiodarone 200 MG TAB PO SCH ×3 (08:24→19:35)
[2023-06-01] MEDS: Aripiprazole 10 MG TAB PO SCH (08:27)
[2023-06-01 19:47] VITALS: BP 121/71; TEMP 98
== END 2023-06-01 21:10 | DRG 308 ==
LOC: INTOOBSV 12:25 → 2NO 12:25 → OBSVTOIN 05-30 18:30
PROVIDERS: ADMIT Family Medicine; ATTEND Hospitalist
DX: I48.0 Paroxysmal atrial fibrillation (principal); J96.01 Acute respiratory failure with hypoxia; N18.6 End stage renal disease; I13.2 Hypertensive heart and chronic kidney disease with heart failure and with stage 5 chronic kidney disease, or end stage renal disease; I50.32 Chronic diastolic (congestive) heart failure; G20 Parkinson's disease; K21.9 Gastro-esophageal reflux disease without esophagitis; D63.1 Anemia in chronic kidney disease; F31.9 Bipolar disorder, unspecified; E78.5 Hyperlipidemia, unspecified; E03.9 Hypothyroidism, unspecified; Z79.82 Long term (current) use of aspirin; Z99.2 Dependence on renal dialysis; Z79.890 Hormone replacement therapy; Z79.899 Other long term (current) drug therapy; Z79.01 Long term (current) use of anticoagulants; Z88.6 Allergy status to analgesic agent; Z88.0 Allergy status to penicillin; Z79.52 Long term (current) use of systemic steroids; Z98.51 Tubal ligation status
CPT/HCPCS: 36415; 71275; 80048; 80061; 80076; 83036; 83735; 84146; 84443; 85025; 85379; 86704; 86850; 86900; 86901; 87449; 87899; 93970; 94760; 96372; 96374; 96375; 96376; G0378; J0282; J0696; J1650; J3490; J7070; Q9967

== ENCOUNTER 2023-06-02 18:06 | Emergency (ER) | payer MEDICARE, OTHER ==
[2023-06-02 18:44] LABS: #Eosinphils 0.2 thou/uL (0.0-0.7); #Monocytes 1.1 thou/uL (0.11-0.59); %Basophils 0.5 % (0.0-1.0); %Eosinophils 2.7 % (0.0-10.0); %Lymphocytes 39.1 % (21.0-51.0); %Monocytes 15.2 % (0.0-10.0); %Neutrophils 41.5 % (42.0-75.0); Hematocrit 32.1 % (36.0-47.0); Hemoglobin 10.3 g/dL (12.0-16.0); Mean Corpuscular HGB CONC 32.1 g/dL (32.0-36.0); Mean Corpuscular Hemoglobin 34.6 pg (27.0-31.0); Mean Corpuscular Volume 107.7 fl (78.0-98.0); Mean Platelet Volume 9.4 fL (7.4-10.4); Platelet Count 189 10x3/uL (130-400); RBC Distribution Width 12.9 % (11.5-14.5); Red Blood Cell (RBC) Count 2.98 mill/uL (4.20-5.40); White Blood Cell (WBC) Count 7.3 10x3/uL (4.8-10.8)
[2023-06-02 19:03] LABS: INR-International Normal Ratio 1.6; PTT 39.9 sec (22.9-36.1); Prothrombin Time 19.4 sec (12.0-14.7)
[2023-06-02 19:11] LABS: ALT (SGPT) 8 U/L (8-55); AST (SGOT) 16 U/L (5-34); Albumin 3.1 g/dL (3.4-4.8); Alkaline Phosphatase 93 U/L (40-110); Anion Gap 13 mmol/L (10-20); BUN (Urea Nitrogen) 26 mg/dL (9.8-20.1); Bilirubin, Total 0.3 mg/dL (0.2-1.2); CK (CPK) 35 U/L (29-168); Calc. Creatinine Clearance 0 mL/min (70-130); Calcium 9.6 mg/dL (7.8-10.44); Carbon Dioxide 24 mmol/L (23-31); Chloride 103 mmol/L (98-107); Estimated GFR 14; Globulin 4.5 g/dL (2.4-3.5); Glucose 86 mg/dL (80-115); Potassium 3.9 mmol/L (3.5-5.1); Protein, Total 7.6 g/dL (5.8-8.1); Sodium 136 mmol/L (136-145)
== END 2023-06-02 22:36 ==
LOC: ERS 18:06
DX: T82.590A Other mechanical complication of surgically created arteriovenous fistula, initial encounter (principal); I25.10 Atherosclerotic heart disease of native coronary artery without angina pectoris; E03.9 Hypothyroidism, unspecified; K21.9 Gastro-esophageal reflux disease without esophagitis; E78.00 Pure hypercholesterolemia, unspecified; I13.0 Hypertensive heart and chronic kidney disease with heart failure and stage 1 through stage 4 chronic kidney disease, or unspecified chronic kidney disease; I50.9 Heart failure, unspecified; N18.30 Chronic kidney disease, stage 3 unspecified; I48.91 Unspecified atrial fibrillation
CPT/HCPCS: 36415; 80053; 82550; 85025; 85610; 85730

== ENCOUNTER 2023-07-06 21:51 | Inpatient (IN) | payer MEDICARE, MEDICAID ==
[2023-07-06 22:57] LABS: Bacteria/HPF 4+ HPF (None Seen); Bilirubin Negative (Negative); Blood, Urine 3+ (Negative); CAUTI Indications for Culture Dysuria,urgency,freq; Clarity Turbid (Clear); Glucose, Urine (Dipstick) Normal (Negative); Ketone, Urine Negative (Negative); Leukocyte 500 Leu/uL (Negative); Nitrite 1+ (Negative); Protein, Urine (Dipstick) 50 mg/dL (Neg-Trace); RBC/HPF 21-50 HPF (0-3); Specific Gravity, Urine 1.008 (1.002-1.036); Squamous Epithelial 0-3 HPF (0-3); Urobilinogen Normal mg/dL (Less than 2); WBC/HPF Greater than 50 HPF (0-3)
[2023-07-06 23:01] LABS: Urine Culture Reflex Yes Yes
[2023-07-06] MEDS ORDERED: cefTRIAXone (ROCEPHIN) 1 GM VIAL ONE (23:12)
[2023-07-06 23:13] LABS: #Eosinphils 0.2 thou/uL (0.0-0.7); #Monocytes 0.8 thou/uL (0.11-0.59); #Neutrophils 2.3 thou/uL (1.40-6.50); %Basophils 0.3 % (0.0-1.0); %Eosinophils 2.8 % (0.0-10.0); %Lymphocytes 45.7 % (21.0-51.0); %Monocytes 13.4 % (0.0-10.0); %Neutrophils 37.3 % (42.0-75.0); Hematocrit 23.6 % (36.0-47.0); Hemoglobin 7.7 g/dL (12.0-16.0); Mean Corpuscular HGB CONC 32.6 g/dL (32.0-36.0); Mean Corpuscular Hemoglobin 35.8 pg (27.0-31.0); Mean Corpuscular Volume 109.8 fl (78.0-98.0); Mean Platelet Volume 9.4 fL (7.4-10.4); Platelet Count 141 10x3/uL (130-400); RBC Distribution Width 13.3 % (11.5-14.5); Red Blood Cell (RBC) Count 2.15 mill/uL (4.20-5.40)
[2023-07-06] MEDS ORDERED: Nitrofurantoin Macrocrystal 50 MG CAP PO SCH (23:30)
[2023-07-06 23:38] LABS: ALT (SGPT) Less than 7 U/L (8-55); AST (SGOT) 13 U/L (5-34); Albumin 2.9 g/dL (3.4-4.8); Alkaline Phosphatase 110 U/L (40-110); Anion Gap 13 mmol/L (10-20); BUN (Urea Nitrogen) 73 mg/dL (9.8-20.1); Bilirubin, Total 0.2 mg/dL (0.2-1.2); Calc. Creatinine Clearance 0 mL/min (70-130); Calcium 8.7 mg/dL (7.8-10.44); Carbon Dioxide 18 mmol/L (23-31); Chloride 108 mmol/L (98-107); Estimated GFR 7; Globulin 3.9 g/dL (2.4-3.5); Glucose 80 mg/dL (80-115); Potassium 4.4 mmol/L (3.5-5.1); Protein, Total 6.8 g/dL (5.8-8.1); Sodium 135 mmol/L (136-145)
[2023-07-06 23:45] LABS: Troponin I Less than 0.010 ng/mL (< 0.028)
[2023-07-07 01:34] VITALS: BMI 28.8
[2023-07-07] MEDS ORDERED: Ondansetron ODT 4 MG TAB PO PRN (03:16)
[2023-07-07] MEDS ORDERED: Acetaminophen 325 MG TAB PO PRN (03:16)
[2023-07-07 04:45] LABS: #Eosinphils 0.1 thou/uL (0.0-0.7); #Monocytes 0.7 thou/uL (0.11-0.59); #Neutrophils 2.6 thou/uL (1.40-6.50); %Basophils 0.4 % (0.0-1.0); %Eosinophils 2.1 % (0.0-10.0); %Lymphocytes 35.7 % (21.0-51.0); %Monocytes 12.9 % (0.0-10.0); %Neutrophils 48.7 % (42.0-75.0); Hematocrit 22.5 % (36.0-47.0); Hemoglobin 7.3 g/dL (12.0-16.0); Mean Corpuscular HGB CONC 32.4 g/dL (32.0-36.0); Mean Corpuscular Hemoglobin 35.4 pg (27.0-31.0); Mean Corpuscular Volume 109.2 fl (78.0-98.0); Mean Platelet Volume 9.8 fL (7.4-10.4); Platelet Count 126 10x3/uL (130-400); RBC Distribution Width 13.2 % (11.5-14.5); Red Blood Cell (RBC) Count 2.06 mill/uL (4.20-5.40); White Blood Cell (WBC) Count 5.3 10x3/uL (4.8-10.8)
[2023-07-07 05:16] LABS: Anion Gap 16 mmol/L (10-20); BUN (Urea Nitrogen) 70 mg/dL (9.8-20.1); Calc. Creatinine Clearance 11 mL/min (70-130); Calcium 8.9 mg/dL (7.8-10.44); Carbon Dioxide 17 mmol/L (23-31); Chloride 108 mmol/L (98-107); Estimated GFR 7; Glucose 92 mg/dL (80-115); Potassium 4.9 mmol/L (3.5-5.1); Sodium 136 mmol/L (136-145)
[2023-07-07] MEDS: Levothyroxine Sodium 125 MCG TAB PO SCH (06:08)
[2023-07-07] MEDS: Apixaban 5 MG TAB PO SCH ×2 (08:45→19:55)
[2023-07-07] MEDS: Amiodarone 200 MG TAB PO SCH ×3 (08:45→20:21)
[2023-07-07] MEDS: Benztropine 1 MG TAB PO SCH ×2 (08:45→20:21)
[2023-07-07] MEDS: Folic Acid/Vit B Comp W-C PO SCH (08:45)
[2023-07-07] MEDS: Divalproex Sodium 125 mg Sprinkle Capsule PO SCH (08:46)
[2023-07-07] MEDS: Famotidine 20 MG TAB PO SCH (08:46)
[2023-07-07] MEDS: cefTRIAXone\\ROCEPHIN 1 GM in Sodium Chloride 0.9% 100 ML IVPB SCH (08:47)
[2023-07-07] MEDS ORDERED: Non-Formulary Item 1 EACH (Aripiprazole [Aripiprazole] 5 MG Tablet) PO SCH (09:00)
[2023-07-07 10:48] LABS: HBSAB Concentration Less than 8.00 mIU/mL; HBSAg Index 0.22 S/CO (0-0.99); Hep B Core Total Ab Non-Reactive (NonReactive); Hep B Core Total Index 0.15 S/CO (0-0.79); Hep B Surf AB Non-Reactive (NonReactive); Hep B Surf Ag Non-Reactive S/CO (NonReactive); Hep C IgG Ab Non-Reactive S/CO (NonReactive)
[2023-07-08] MEDS: Levothyroxine Sodium 125 MCG TAB PO SCH (05:57)
[2023-07-08] MEDS: cefTRIAXone\\ROCEPHIN 1 GM in Sodium Chloride 0.9% 100 ML IVPB SCH (09:39)
[2023-07-08] MEDS: Divalproex Sodium 125 mg Sprinkle Capsule PO SCH (09:40)
[2023-07-08] MEDS: Aripiprazole 10 MG TAB PO SCH (09:41)
[2023-07-08] MEDS: Famotidine 20 MG TAB PO SCH (09:42)
[2023-07-08] MEDS: Amiodarone 200 MG TAB PO SCH ×3 (09:42→21:21)
[2023-07-08] MEDS: Benztropine 1 MG TAB PO SCH ×2 (09:42→21:21)
[2023-07-08] MEDS: Folic Acid/Vit B Comp W-C PO SCH (09:42)
[2023-07-09 04:19] LABS: #Eosinphils 0.2 thou/uL (0.0-0.7); #Monocytes 0.8 thou/uL (0.11-0.59); #Neutrophils 2.9 thou/uL (1.40-6.50); %Basophils 0.3 % (0.0-1.0); %Eosinophils 3.2 % (0.0-10.0); %Lymphocytes 33.1 % (21.0-51.0); %Monocytes 13.7 % (0.0-10.0); %Neutrophils 49.2 % (42.0-75.0); Hematocrit 22.7 % (36.0-47.0); Hemoglobin 7.3 g/dL (12.0-16.0); Mean Corpuscular HGB CONC 32.2 g/dL (32.0-36.0); Mean Corpuscular Hemoglobin 34.6 pg (27.0-31.0); Mean Corpuscular Volume 107.6 fl (78.0-98.0); Mean Platelet Volume 9.8 fL (7.4-10.4); Platelet Count 128 10x3/uL (130-400); RBC Distribution Width 12.7 % (11.5-14.5); Red Blood Cell (RBC) Count 2.11 mill/uL (4.20-5.40); White Blood Cell (WBC) Count 5.9 10x3/uL (4.8-10.8)
[2023-07-09 04:49] LABS: Anion Gap 11 mmol/L (10-20); BUN (Urea Nitrogen) 38 mg/dL (9.8-20.1); Calc. Creatinine Clearance 14 mL/min (70-130); Calcium 9.2 mg/dL (7.8-10.44); Carbon Dioxide 25 mmol/L (23-31); Chloride 101 mmol/L (98-107); Estimated GFR 10; Glucose 84 mg/dL (80-115); Potassium 4.2 mmol/L (3.5-5.1); Sodium 133 mmol/L (136-145)
[2023-07-09] MEDS: Levothyroxine Sodium 125 MCG TAB PO SCH (05:53)
[2023-07-09] MEDS ORDERED: EPOETIN ALFA-EPBX (ESRD) 10,000 UNITS/ML VIAL IVP SCH (09:00)
[2023-07-09] MEDS ORDERED: Epoetin (ESRD) 10,000 UNITS/ML VIAL IVP SCH (09:00)
[2023-07-09] MEDS: Aripiprazole 10 MG TAB PO SCH (12:01)
[2023-07-09] MEDS: Divalproex Sodium 125 mg Sprinkle Capsule PO SCH (12:01)
[2023-07-09] MEDS: Benztropine 1 MG TAB PO SCH ×2 (12:02→21:23)
[2023-07-09] MEDS: Amiodarone 200 MG TAB PO SCH ×4 (12:02→21:23)
[2023-07-09] MEDS: Folic Acid/Vit B Comp W-C PO SCH (12:02)
[2023-07-09] MEDS: cefTRIAXone\\ROCEPHIN 1 GM in Sodium Chloride 0.9% 100 ML IVPB SCH (12:03)
[2023-07-09] MEDS: Famotidine 20 MG TAB PO SCH (12:06)
[2023-07-09] MEDS ORDERED: Senokot S 8.6-50 MG TAB PO SCH (13:15)
[2023-07-09] MEDS ORDERED: Bisacodyl 10 MG SUPP PR SCH (20:00)
[2023-07-09] MEDS ORDERED: Famotidine 20 MG TAB PO SCH (21:00)
[2023-07-09] MEDS ORDERED: Mineral Oil ENEMA PR SCH (23:00)
[2023-07-10 05:20] LABS: #Eosinphils 0.2 thou/uL (0.0-0.7); #Monocytes 1.1 thou/uL (0.11-0.59); #Neutrophils 3.1 thou/uL (1.40-6.50); %Basophils 0.3 % (0.0-1.0); %Eosinophils 3.1 % (0.0-10.0); %Lymphocytes 37.9 % (21.0-51.0); %Neutrophils 43.1 % (42.0-75.0); Hemoglobin 7.7 g/dL (12.0-16.0); Mean Corpuscular HGB CONC 32.1 g/dL (32.0-36.0); Mean Corpuscular Hemoglobin 35.2 pg (27.0-31.0); Mean Corpuscular Volume 109.6 fl (78.0-98.0); Mean Platelet Volume 10.1 fL (7.4-10.4); Platelet Count 153 10x3/uL (130-400); RBC Distribution Width 12.7 % (11.5-14.5); Red Blood Cell (RBC) Count 2.19 mill/uL (4.20-5.40); White Blood Cell (WBC) Count 7.1 10x3/uL (4.8-10.8)
[2023-07-10] MEDS: Levothyroxine Sodium 125 MCG TAB PO SCH (05:50)
[2023-07-10 05:51] LABS: Anion Gap 13 mmol/L (10-20); BUN (Urea Nitrogen) 25 mg/dL (9.8-20.1); Calc. Creatinine Clearance 18 mL/min (70-130); Calcium 9.5 mg/dL (7.8-10.44); Carbon Dioxide 28 mmol/L (23-31); Chloride 95 mmol/L (98-107); Estimated GFR 16; Glucose 85 mg/dL (80-115); Potassium 3.6 mmol/L (3.5-5.1); Sodium 132 mmol/L (136-145)
[2023-07-10] MEDS: Divalproex Sodium 125 mg Sprinkle Capsule PO SCH (08:55)
[2023-07-10] MEDS: Aripiprazole 10 MG TAB PO SCH (08:55)
[2023-07-10] MEDS: Benztropine 1 MG TAB PO SCH (08:56)
[2023-07-10] MEDS: Amiodarone 200 MG TAB PO SCH ×2 (08:56→15:30)
[2023-07-10] MEDS: Folic Acid/Vit B Comp W-C PO SCH (08:56)
[2023-07-10] MEDS: cefTRIAXone\\ROCEPHIN 1 GM in Sodium Chloride 0.9% 100 ML IVPB SCH (08:57)
[2023-07-10] MEDS: Apixaban 5 MG TAB PO SCH (09:01)
[2023-07-10 12:04] VITALS: BP 117/52; TEMP 96.9
[2023-07-10] MEDS ORDERED: Famotidine 20 MG TAB PO SCH (21:00)
== END 2023-07-10 15:00 | DRG 291 ==
LOC: ERS 21:51 → INTOOBSV 07-07 00:21 → 2SE 07-07 00:21 → OBSVTOIN 07-08 15:31
PROVIDERS: ADMIT Student in an Organized Health Care Education/Training Program; ATTEND Internal Medicine
DX: I13.2 Hypertensive heart and chronic kidney disease with heart failure and with stage 5 chronic kidney disease, or end stage renal disease (principal); G93.41 Metabolic encephalopathy; I50.33 Acute on chronic diastolic (congestive) heart failure; J96.01 Acute respiratory failure with hypoxia; N18.6 End stage renal disease; N30.00 Acute cystitis without hematuria; I48.11 Longstanding persistent atrial fibrillation; G20.A1 Parkinson's disease without dyskinesia, without mention of fluctuations; E78.5 Hyperlipidemia, unspecified; D63.1 Anemia in chronic kidney disease; K21.9 Gastro-esophageal reflux disease without esophagitis; Z98.890 Other specified postprocedural states; Z88.0 Allergy status to penicillin; Z88.5 Allergy status to narcotic agent; Z79.82 Long term (current) use of aspirin; Z79.899 Other long term (current) drug therapy; Z79.890 Hormone replacement therapy; Z99.2 Dependence on renal dialysis; Z98.51 Tubal ligation status
CPT/HCPCS: 36415; 80048; 80053; 81001; 82274; 83605; 83880; 84484; 85025; 86704; 87077; 87086; 87186; 90935; 93005; 96361; 96365; 96366; 96376; G0257; G0378; J0696; J3490; Q4081

== ENCOUNTER 2023-11-17 06:03 | Inpatient (IN) | payer MEDICARE ==
[2023-11-17 07:08] LABS: Hematocrit 22.7 % (36.0-47.0); Manual Diff?? YES; Mean Corpuscular HGB CONC 30.8 g/dL (32.0-36.0); Mean Corpuscular Hemoglobin 31.8 pg (27.0-31.0); Mean Corpuscular Volume 103.2 fl (78.0-98.0); Mean Platelet Volume 9.8 fL (7.4-10.4); Platelet Count 126 10x3/uL (130-400); RBC Distribution Width 17.8 % (11.5-14.5)
[2023-11-17 07:09] LABS: Delete Auto Diff?? YES
[2023-11-17 07:23] LABS: INR-International Normal Ratio 2.3; Prothrombin Time 25.5 sec (12.0-14.7)
[2023-11-17 07:24] LABS: PTT 58.1 sec (22.9-36.1)
[2023-11-17 07:30] LABS: Band 14 % (5-11); CellaVision Operator ID LAB.KW3; Eosinophils 1 % (0-10); Large Platelets 5.9 % (0-5); Lymphocytes 30 % (21-51); Monocytes 11 % (0-10); Neutrophil 44 % (42-75); Platelet Adequacy Comment Platelets Decreased; Polychromasia SLIGHT = 2-3 cells HPF (0-2); Target Cells SLIGHT = 2-5 cells HPF (0-1); Total Cell Count 101
[2023-11-17 07:49] LABS: Albumin 2.1 g/dL (3.4-4.8); BUN (Urea Nitrogen) 33 mg/dL (9.8-20.1); Bilirubin, Total 1.2 mg/dL (0.2-1.2); Calc. Creatinine Clearance 0 mL/min (70-130); Calcium 8.4 mg/dL (7.8-10.44); Carbon Dioxide 23 mmol/L (23-31); Chloride 104 mmol/L (98-107); Estimated GFR 10; Globulin 3.6 g/dL (2.4-3.5); Glucose 78 mg/dL (80-115); Potassium 4.8 mmol/L (3.5-5.1); Protein, Total 5.7 g/dL (5.8-8.1); Sodium 134 mmol/L (136-145)
[2023-11-17 08:11] LABS: Acetaminophen Less than 10 mcg/mL (10.0-30.0); Alcohol Less than 10.0 mg/dL (Less than 10); Salicylate Less than 8.0 mg/dL (15.0-30.0)
[2023-11-17] MEDS ORDERED: Acetaminophen 325 MG TAB PO PRN (09:29)
[2023-11-17 09:43] LABS: Anion Gap 12 mmol/L (10-20)
[2023-11-17 10:01] LABS: ALT (SGPT) 22 U/L (8-55); AST (SGOT) 35 U/L (5-34)
[2023-11-17 10:17] LABS: Alkaline Phosphatase 79 U/L (40-110)
[2023-11-17 11:19] VITALS: BMI 28.5
[2023-11-17 11:32] LABS: Hemoglobin 7.2 g/dL (12.0-16.0)
[2023-11-17] MEDS ORDERED: Amiodarone 200 MG TAB ONE (15:39)
[2023-11-17] MEDS: Amiodarone 200 MG TAB PO SCH (15:43)
[2023-11-17] MEDS: Midodrine HCl 5 MG TAB PO SCH (15:43)
[2023-11-17 20:21] LABS: Hemoglobin 11.1 g/dL (12.0-16.0)
[2023-11-17] MEDS: Benztropine 1 MG TAB PO SCH (21:39)
[2023-11-18] MEDS: Levothyroxine Sodium 125 MCG TAB PO SCH (05:27)
[2023-11-18] MEDS ORDERED: Glucagon 1 MG/ML KIT IM PRN (06:02)
[2023-11-18] MEDS ORDERED: Dextrose 50% Abboject 50 ML SYRINGE SLOW IVP PRN (06:02)
[2023-11-18] MEDS ORDERED: Dextrose 5% in Water 1,000 ML IV PRN (06:02)
[2023-11-18 06:04] LABS: Anion Gap 8 mmol/L (10-20); BUN (Urea Nitrogen) 12 mg/dL (9.8-20.1); Calc. Creatinine Clearance 25 mL/min (70-130); Calcium 8.4 mg/dL (7.8-10.44); Carbon Dioxide 30 mmol/L (23-31); Chloride 101 mmol/L (98-107); Estimated GFR 21; Glucose 73 mg/dL (80-115); Potassium 3.6 mmol/L (3.5-5.1); Sodium 135 mmol/L (136-145)
[2023-11-18 06:23] LABS: Hep B Core Total Ab Non-Reactive (NonReactive); Hep B Core Total Index 0.25 S/CO (0-0.79)
[2023-11-18 06:35] LABS: HBSAB Concentration Less than 8.00 mIU/mL; HBSAg Index 0.25 S/CO (0-0.99); Hep B Surf AB Non-Reactive (NonReactive); Hep B Surf Ag Non-Reactive S/CO (NonReactive); Hep C IgG Ab Non-Reactive S/CO (NonReactive); Hep C Index 0.12 S/CO (0-0.79)
[2023-11-18] MEDS: Divalproex Sodium 125 mg Sprinkle Capsule PO SCH (08:26)
[2023-11-18] MEDS: Aripiprazole 10 MG TAB PO SCH (08:27)
[2023-11-18] MEDS ORDERED: Non-Formulary Item 1 EACH (Aripiprazole [Aripiprazole] 5 MG Tablet) PO SCH (09:00)
[2023-11-18] MEDS ORDERED: Non-Formulary Item 1 EACH (Levothyroxine Sodium [Levothyroxine Sodium] 25 MCG Capsule) PO SCH (09:00)
[2023-11-18 13:55] LABS: #Monocytes 0.9 thou/uL (0.11-0.59); #Neutrophils 2.4 thou/uL (1.40-6.50); %Basophils 0.6 % (0.0-1.0); %Lymphocytes 34.4 % (21.0-51.0); %Monocytes 17.1 % (0.0-10.0); %Neutrophils 44.4 % (42.0-75.0); Hematocrit 30.5 % (36.0-47.0); Mean Corpuscular HGB CONC 32.8 g/dL (32.0-36.0); Mean Corpuscular Hemoglobin 31.5 pg (27.0-31.0); Mean Corpuscular Volume 96.2 fl (78.0-98.0); Mean Platelet Volume 9.6 fL (7.4-10.4); RBC Distribution Width 19.9 % (11.5-14.5); Red Blood Cell (RBC) Count 3.17 mill/uL (4.20-5.40); White Blood Cell (WBC) Count 5.4 10x3/uL (4.8-10.8)
[2023-11-18 13:56] LABS: Platelet Count 131 10x3/uL (130-400)
[2023-11-19 06:08] LABS: #Eosinphils 0.1 thou/uL (0.0-0.7); #Neutrophils 2.3 thou/uL (1.40-6.50); %Basophils 0.5 % (0.0-1.0); %Eosinophils 1.6 % (0.0-10.0); %Lymphocytes 33.9 % (21.0-51.0); %Monocytes 18.4 % (0.0-10.0); %Neutrophils 41.3 % (42.0-75.0); Hematocrit 28.3 % (36.0-47.0); Hemoglobin 8.9 g/dL (12.0-16.0); Mean Corpuscular HGB CONC 31.4 g/dL (32.0-36.0); Mean Corpuscular Hemoglobin 30.3 pg (27.0-31.0); Mean Corpuscular Volume 96.3 fl (78.0-98.0); Mean Platelet Volume 9.8 fL (7.4-10.4); Platelet Count 134 10x3/uL (130-400); RBC Distribution Width 19.7 % (11.5-14.5); Red Blood Cell (RBC) Count 2.94 mill/uL (4.20-5.40); White Blood Cell (WBC) Count 5.5 10x3/uL (4.8-10.8)
[2023-11-19 12:25] LABS: Hematocrit 33.9 % (36.0-47.0); Hemoglobin 10.9 g/dL (12.0-16.0); Platelet Count 157 10x3/uL (130-400)
[2023-11-19 13:55] VITALS: BP 130/65; TEMP 98
[2023-11-19] MEDS: EPOETIN ALFA-EPBX 10,000 UNITS/ML VIAL IVP SCH (14:01)
[2023-11-21] MEDS ORDERED: FLU VACC QS2023-24(6MOS UP)/PF 60 MCG/0.5 ML SYRINGE IM ONE (09:00)
== END 2023-11-19 16:59 | DRG 555 ==
LOC: ERS 06:03 → ERHOLD 09:09 → T4-B 18:09 → OBSVTOIN 11-18 14:53
PROVIDERS: ADMIT Internal Medicine; ATTEND Internal Medicine
PROC: 30233N1 Transfusion of Nonautologous Red Blood Cells into Peripheral Vein, Percutaneous Approach (ICD-10-PCS; principal; 2023-11-17)
PROC: 5A1D70Z Performance of Urinary Filtration, Intermittent, Less than 6 Hours Per Day (ICD-10-PCS; 2023-11-17)
PROC: 5A1D70Z Performance of Urinary Filtration, Intermittent, Less than 6 Hours Per Day (ICD-10-PCS; 2023-11-19)
DX: M79.81 Nontraumatic hematoma of soft tissue (principal); N18.6 End stage renal disease; D62 Acute posthemorrhagic anemia; I13.2 Hypertensive heart and chronic kidney disease with heart failure and with stage 5 chronic kidney disease, or end stage renal disease; I50.32 Chronic diastolic (congestive) heart failure; E87.1 Hypo-osmolality and hyponatremia; G20.A1 Parkinson's disease without dyskinesia, without mention of fluctuations; E03.9 Hypothyroidism, unspecified; K21.9 Gastro-esophageal reflux disease without esophagitis; E78.5 Hyperlipidemia, unspecified; D63.1 Anemia in chronic kidney disease; F31.9 Bipolar disorder, unspecified; E88.09 Other disorders of plasma-protein metabolism, not elsewhere classified; I48.0 Paroxysmal atrial fibrillation; T45.515A Adverse effect of anticoagulants, initial encounter; Z99.2 Dependence on renal dialysis; Z88.0 Allergy status to penicillin; Z98.51 Tubal ligation status; Z98.890 Other specified postprocedural states; Z88.5 Allergy status to narcotic agent; Z79.890 Hormone replacement therapy; Z79.899 Other long term (current) drug therapy
CPT/HCPCS: 36415; 36416; 36430; 74176; 80048; 80053; 80307; 81001; 82140; 82550; 83605; 83690; 83735; 84443; 84484; 85025; 85610; 85730; 86704; 86850; 86900; 86901; 87077; 87086; 87186; 90935; 93005; 97139; 99285; G0257; G0378; J0692; J7168; P9016; Q5106

== ENCOUNTER 2023-12-22 17:36 | Inpatient (IN) | payer MEDICARE ==
[2023-12-22 19:04] LABS: #Monocytes 0.6 thou/uL (0.11-0.59); #Neutrophils 1.8 thou/uL (1.40-6.50); %Basophils 0.7 % (0.0-1.0); %Eosinophils 0.2 % (0.0-10.0); %Monocytes 15.1 % (0.0-10.0); %Neutrophils 43.3 % (42.0-75.0); Hematocrit 39.3 % (36.0-47.0); Hemoglobin 12.3 g/dL (12.0-16.0); Mean Corpuscular HGB CONC 31.3 g/dL (32.0-36.0); Mean Corpuscular Hemoglobin 32.9 pg (27.0-31.0); Mean Corpuscular Volume 105.1 fl (78.0-98.0); Mean Platelet Volume 12.9 fL (7.4-10.4); Platelet Count 148 10x3/uL (130-400); RBC Distribution Width 19.9 % (11.5-14.5); Red Blood Cell (RBC) Count 3.74 mill/uL (4.20-5.40); White Blood Cell (WBC) Count 4.3 10x3/uL (4.8-10.8)
[2023-12-22 19:50] LABS: INR-International Normal Ratio 1.5; Prothrombin Time 18.5 sec (12.0-14.7)
[2023-12-22 19:52] LABS: Troponin I 0.048 ng/mL (< 0.028)
[2023-12-22 20:02] LABS: ALT (SGPT) 17 U/L (8-55); AST (SGOT) 28 U/L (5-34); Albumin 2.7 g/dL (3.4-4.8); Alkaline Phosphatase 130 U/L (40-110); Anion Gap 8 mmol/L (10-20); BUN (Urea Nitrogen) 15 mg/dL (9.8-20.1); Bilirubin, Total 0.6 mg/dL (0.2-1.2); Calc. Creatinine Clearance 0 mL/min (70-130); Calcium 8.9 mg/dL (7.8-10.44); Carbon Dioxide 26 mmol/L (23-31); Chloride 101 mmol/L (98-107); Estimated GFR 30; Globulin 4.5 g/dL (2.4-3.5); Glucose 93 mg/dL (80-115); Magnesium 2.2 mg/dL (1.6-2.6); Potassium 4.2 mmol/L (3.5-5.1); Protein, Total 7.2 g/dL (5.8-8.1); Sodium 131 mmol/L (136-145)
[2023-12-22] MEDS ORDERED: Furosemide 40 MG (4 mL) VIAL ONE ×2 (20:20→21:15)
[2023-12-22] MEDS ORDERED: Ondansetron PF 4 MG/2 ML Vial IVP PRN (21:25)
[2023-12-22] MEDS ORDERED: Acetaminophen 325 MG TAB PO PRN (21:25)
[2023-12-22] MEDS ORDERED: Calcium Carbonate 500 MG ChewTAB PO PRN (21:25)
[2023-12-23 02:12] VITALS: BMI 23.6
[2023-12-23 02:33] LABS: #Eosinphils 0.1 thou/uL (0.0-0.7); #Monocytes 0.8 thou/uL (0.11-0.59); #Neutrophils 1.7 thou/uL (1.40-6.50); %Basophils 0.5 % (0.0-1.0); %Eosinophils 2.5 % (0.0-10.0); %Lymphocytes 40.4 % (21.0-51.0); %Monocytes 17.2 % (0.0-10.0); Hematocrit 33.2 % (36.0-47.0); Hemoglobin 10.6 g/dL (12.0-16.0); Mean Corpuscular HGB CONC 31.9 g/dL (32.0-36.0); Mean Corpuscular Hemoglobin 32.8 pg (27.0-31.0); Mean Corpuscular Volume 102.8 fl (78.0-98.0); Mean Platelet Volume 9.6 fL (7.4-10.4); Platelet Count 136 10x3/uL (130-400); RBC Distribution Width 17.5 % (11.5-14.5); Red Blood Cell (RBC) Count 3.23 mill/uL (4.20-5.40); White Blood Cell (WBC) Count 4.4 10x3/uL (4.8-10.8)
[2023-12-23 02:49] LABS: ALT (SGPT) 15 U/L (8-55); AST (SGOT) 24 U/L (5-34); Albumin 2.5 g/dL (3.4-4.8); Alkaline Phosphatase 120 U/L (40-110); Anion Gap 7 mmol/L (10-20); BUN (Urea Nitrogen) 19 mg/dL (9.8-20.1); Bilirubin, Total 0.4 mg/dL (0.2-1.2); Calc. Creatinine Clearance 24 mL/min (70-130); Calcium 9.2 mg/dL (7.8-10.44); Carbon Dioxide 31 mmol/L (23-31); Chloride 105 mmol/L (98-107); Estimated GFR 25; Globulin 4.3 g/dL (2.4-3.5); Glucose 71 mg/dL (80-115); Potassium 4.9 mmol/L (3.5-5.1); Protein, Total 6.8 g/dL (5.8-8.1); Sodium 138 mmol/L (136-145)
[2023-12-23 02:53] LABS: Troponin I 0.043 ng/mL (< 0.028)
[2023-12-23 05:19] LABS: Troponin I 0.045 ng/mL (< 0.028)
[2023-12-23] MEDS: Furosemide 40 MG (4 mL) VIAL SLOW IVP SCH (05:26)
[2023-12-23] MEDS: Levothyroxine Sodium 125 MCG TAB PO SCH (05:26)
[2023-12-23] MEDS: Divalproex Sodium 125 mg Sprinkle Capsule PO SCH (10:24)
[2023-12-23] MEDS: Folic Acid/Vit B Comp W-C PO SCH (10:24)
[2023-12-23] MEDS: Midodrine HCl 5 MG TAB PO SCH (10:25)
[2023-12-23] MEDS: Aspirin 81 mg Enteric Coated Tablet PO SCH (10:25)
[2023-12-23] MEDS: FLU VACC QS2023-24(6MOS UP)/PF 60 MCG/0.5 ML SYRINGE IM ONE (10:25)
[2023-12-23] MEDS: Aripiprazole 10 MG TAB PO SCH (10:25)
[2023-12-23] MEDS: Amiodarone 200 MG TAB PO SCH (10:25)
[2023-12-23] MEDS: Benztropine 1 MG TAB PO SCH (10:25)
[2023-12-23] MEDS: Apixaban 5 MG TAB PO SCH (10:25)
[2023-12-23 17:39] LABS: HBSAB Concentration Less than 8.00 mIU/mL; HBSAg Index 0.23 S/CO (0-0.99); Hep B Core Total Ab Non-Reactive (NonReactive); Hep B Core Total Index 0.16 S/CO (0-0.79); Hep B Surf AB Non-Reactive (NonReactive); Hep B Surf Ag Non-Reactive S/CO (NonReactive); Hep C IgG Ab Non-Reactive S/CO (NonReactive); Hep C Index 0.12 S/CO (0-0.79)
[2023-12-24 05:27] LABS: #Basophils Less than 0.0 thou/uL (0.0-0.2); #Eosinphils Less than 0.0 thou/uL (0.0-0.7); #Monocytes 0.8 thou/uL (0.11-0.59); #Neutrophils 1.6 thou/uL (1.40-6.50); %Basophils 0.5 % (0.0-1.0); %Lymphocytes 45.9 % (21.0-51.0); %Monocytes 17.4 % (0.0-10.0); %Neutrophils 35.7 % (42.0-75.0); Hemoglobin 10.9 g/dL (12.0-16.0); Mean Corpuscular HGB CONC 32.1 g/dL (32.0-36.0); Mean Corpuscular Hemoglobin 33.2 pg (27.0-31.0); Mean Corpuscular Volume 103.7 fl (78.0-98.0); Mean Platelet Volume 9.9 fL (7.4-10.4); Platelet Count 146 10x3/uL (130-400); RBC Distribution Width 17.8 % (11.5-14.5); Red Blood Cell (RBC) Count 3.28 mill/uL (4.20-5.40); White Blood Cell (WBC) Count 4.4 10x3/uL (4.8-10.8)
[2023-12-24 05:28] LABS: Anion Gap 11 mmol/L (10-20); BUN (Urea Nitrogen) 28 mg/dL (9.8-20.1); Calc. Creatinine Clearance 17 mL/min (70-130); Calcium 8.9 mg/dL (7.8-10.44); Carbon Dioxide 25 mmol/L (23-31); Chloride 102 mmol/L (98-107); Estimated GFR 16; Glucose 64 mg/dL (80-115); Magnesium 2.2 mg/dL (1.6-2.6); Potassium 4.2 mmol/L (3.5-5.1); Sodium 134 mmol/L (136-145)
[2023-12-24] MEDS: Senokot S 8.6-50 MG TAB PO PRN (08:11)
[2023-12-24] MEDS: Aspirin Chewable 81 MG TAB PO SCH (08:12)
[2023-12-24] MEDS: traMADol HCl 50 MG TAB PO PRN (08:12)
[2023-12-24] MEDS: Pantoprazole 40 MG VIAL IVP SCH (08:13)
[2023-12-24 11:24] VITALS: TEMP 97.7
[2023-12-24 15:42] VITALS: BP 100/50
[2023-12-24] MEDS ORDERED: Apixaban 2.5 MG TAB PO SCH (21:00)
== END 2023-12-24 15:15 | DRG 280 ==
LOC: ERS 17:36 → SUATTDRO 17:36 → 2NO 21:21 → OBSVTOIN 12-23 15:07
PROVIDERS: ADMIT Internal Medicine; ATTEND Internal Medicine
DX: I13.2 Hypertensive heart and chronic kidney disease with heart failure and with stage 5 chronic kidney disease, or end stage renal disease (principal); N18.6 End stage renal disease; I21.A1 Myocardial infarction type 2; F39 Unspecified mood [affective] disorder; I50.32 Chronic diastolic (congestive) heart failure; F31.9 Bipolar disorder, unspecified; E03.9 Hypothyroidism, unspecified; I48.91 Unspecified atrial fibrillation; E78.5 Hyperlipidemia, unspecified; D63.1 Anemia in chronic kidney disease; Z88.5 Allergy status to narcotic agent; Z88.0 Allergy status to penicillin; Z79.82 Long term (current) use of aspirin; Z79.890 Hormone replacement therapy; Z99.2 Dependence on renal dialysis; Z79.01 Long term (current) use of anticoagulants
CPT/HCPCS: 36415; 71045; 80048; 80053; 83735; 83880; 84484; 85025; 85610; 85730; 86704; 86706; 86803; 87340; 93005; 93970; 96374; 96376; 97139; C9113; J1940

== ENCOUNTER 2024-04-18 14:53 | Inpatient (IN) | payer MEDICARE, MEDICAID ==
[2024-04-18 16:35] LABS: #Basophils Less than 0.03 10x3/uL (0.0-0.2); #Eosinphils Less than 0.03 10x3/uL (0.0-0.7); %Basophils 0.4 % (0.0-1.0); %Lymphocytes 44.8 % (21.0-51.0); %Monocytes 14.7 % (0.0-10.0); %Neutrophils 39.6 % (42.0-75.0); Hematocrit 28.5 % (36.0-47.0); Hemoglobin 9.4 g/dL (12.0-16.0); Mean Corpuscular Hemoglobin 36.3 pg (27.0-31.0); Mean Platelet Volume 10.1 fL (7.4-10.4); Platelet Count 160 10x3/uL (130-400); RBC Distribution Width 17.3 % (11.5-14.5); Red Blood Cell (RBC) Count 2.59 mill/uL (4.20-5.40)
[2024-04-18 16:49] LABS: INR-International Normal Ratio 1.4; PTT 39.1 sec (22.9-36.1); Prothrombin Time 16.9 sec (12.0-14.7)
[2024-04-18 16:55] LABS: ALT (SGPT) 20 U/L (8-55); AST (SGOT) 26 U/L (5-34); Albumin 1.6 g/dL (3.4-4.8); Alkaline Phosphatase 104 U/L (40-110); Anion Gap 9 mmol/L (10-20); BUN (Urea Nitrogen) 16 mg/dL (9.8-20.1); Bilirubin, Total 0.2 mg/dL (0.2-1.2); Calc. Creatinine Clearance 0 mL/min (70-130); Calcium 7.8 mg/dL (7.8-10.44); Carbon Dioxide 23 mmol/L (23-31); Chloride 106 mmol/L (98-107); Estimated GFR 22; Globulin 3.5 g/dL (2.4-3.5); Glucose 99 mg/dL (80-115); Lipase 19 U/L (8-78); Magnesium 1.7 mg/dL (1.6-2.6); Potassium 4.1 mmol/L (3.5-5.1); Protein, Total 5.1 g/dL (5.8-8.1); Sodium 134 mmol/L (136-145)
[2024-04-18 17:00] LABS: Troponin I 0.068 ng/mL (< 0.028)
[2024-04-18 18:22] LABS: Influenza A by NAA Not Detected (NotDetected); Influenza B by NAA Not Detected (NotDetected); SARS-CoV-2 NAA Rapid Test Not Detected (NotDetected)
[2024-04-18 19:41] LABS: Free T4 (Free Thyroxine) 0.58 ng/dL (0.70-1.48)
[2024-04-18] MEDS ORDERED: traMADol HCl 50 MG TAB PO PRN (20:44)
[2024-04-18] MEDS ORDERED: Docusate 100 MG CAP PO PRN (20:55)
[2024-04-18 22:04] LABS: Troponin I 0.122 ng/mL (< 0.028)
[2024-04-18] MEDS ORDERED: Amiodarone 200 MG TAB ONE (22:44)
[2024-04-18] MEDS ORDERED: DULoxetine 60 MG CAP ONE (22:44)
[2024-04-18] MEDS ORDERED: Apixaban 5 MG TAB ONE (22:45)
[2024-04-18] MEDS ORDERED: Sodium Chloride 0.9% 100 ML ONE (22:45)
[2024-04-18] MEDS ORDERED: Polyethylene Glycol 3350 17 GM Packet ONE (22:45)
[2024-04-18] MEDS ORDERED: cefTRIAXone (ROCEPHIN) 1 GM VIAL ONE (22:45)
[2024-04-18] MEDS: Torsemide 20 MG TAB PO SCH (23:08)
[2024-04-18] MEDS: Midodrine HCl 5 MG TAB PO SCH (23:08)
[2024-04-18] MEDS: Benztropine 1 MG TAB PO SCH (23:08)
[2024-04-18] MEDS: Apixaban 2.5 MG TAB PO SCH (23:09)
[2024-04-18] MEDS: cefTRIAXone\\ROCEPHIN 1 GM in Sodium Chloride 0.9% 100 ML IVPB SCH (23:14)
[2024-04-18] MEDS: Amiodarone 200 MG TAB PO SCH (23:14)
[2024-04-18] MEDS: DULoxetine 60 MG CAP PO SCH (23:14)
[2024-04-18] MEDS: Polyethylene Glycol 3350 17 GM Packet PO SCH (23:21)
[2024-04-19 00:11] LABS: Clarity Extra Turbid (Clear)
[2024-04-19 00:12] LABS: Specific Gravity, Urine 1.005 (1.002-1.036)
[2024-04-19 00:13] LABS: Leukocyte Moderate (Negative); Nitrite Negative (Negative)
[2024-04-19 00:14] LABS: Glucose, Urine (Dipstick) Negative (Negative); Protein, Urine (Dipstick) 100 mg/dL (Neg-Trace)
[2024-04-19 00:15] LABS: Ketone, Urine Negative (Negative); Urobilinogen 0.2 mg/dL (Less than 2)
[2024-04-19 00:16] LABS: Bilirubin Negative (Negative); Blood, Urine Large (Negative)
[2024-04-19 00:17] LABS: RBC/HPF 0-3 HPF (0-3)
[2024-04-19 00:18] LABS: Bacteria/HPF 4+ HPF (None Seen); CAUTI Indications for Culture Alt mental st,lethar; Other Microscopic Description Less than 2 mL rec'd; WBC/HPF Greater than 50 HPF (0-3)
[2024-04-19 00:19] LABS: Urine Culture Reflex Yes Yes
[2024-04-19] MEDS ORDERED: Acetaminophen 650 MG/20.3 ML UDCUP ONE (00:51)
[2024-04-19] MEDS: Acetaminophen 325 MG TAB PO SCH (00:53)
[2024-04-19 03:21] VITALS: BMI 19.8
[2024-04-19 03:38] LABS: Troponin I 0.124 ng/mL (< 0.028)
[2024-04-19 04:33] LABS: #Basophils Less than 0.03 10x3/uL (0.0-0.2); %Basophils 0.2 % (0.0-1.0); %Eosinophils 1.5 % (0.0-10.0); %Lymphocytes 50.8 % (21.0-51.0); Hematocrit 29.5 % (36.0-47.0); Hemoglobin 9.5 g/dL (12.0-16.0); Mean Corpuscular HGB CONC 32.2 g/dL (32.0-36.0); Mean Corpuscular Volume 111.7 fL (78.0-98.0); Mean Platelet Volume 9.8 fL (7.4-10.4); Platelet Count 133 10x3/uL (130-400); RBC Distribution Width 17.3 % (11.5-14.5); Red Blood Cell (RBC) Count 2.64 mill/uL (4.20-5.40)
[2024-04-19 04:38] LABS: ALT (SGPT) 22 U/L (8-55); AST (SGOT) 28 U/L (5-34); Albumin 1.8 g/dL (3.4-4.8); Alkaline Phosphatase 107 U/L (40-110); Anion Gap 9 mmol/L (10-20); BUN (Urea Nitrogen) 21 mg/dL (9.8-20.1); Bilirubin, Total 0.2 mg/dL (0.2-1.2); Calc. Creatinine Clearance 15 mL/min (70-130); Calcium 8.9 mg/dL (7.8-10.44); Carbon Dioxide 29 mmol/L (23-31); Chloride 102 mmol/L (98-107); Estimated GFR 17; Globulin 4.1 g/dL (2.4-3.5); Glucose 69 mg/dL (80-115); Potassium 4.6 mmol/L (3.5-5.1); Protein, Total 5.9 g/dL (5.8-8.1); Sodium 135 mmol/L (136-145)
[2024-04-19 04:40] LABS: Troponin I 0.138 ng/mL (< 0.028)
[2024-04-19] MEDS: Levothyroxine 150 MCG TAB PO SCH (07:58)
[2024-04-19 08:02] LABS: HBSAB Concentration Less than 8.00 mIU/mL; HBsAg Index 0.36 S/CO (0-0.99); Hep B Core Total Ab NONREACTIVE (NonReactive); Hep B Core Total Index 0.14 S/CO (0-0.79); Hep B Surf AB NONREACTIVE (NonReactive); Hep B Surf Ag NONREACTIVE S/CO (NonReactive); Hep C IgG Ab NONREACTIVE S/CO (NonReactive); Hep C Index 0.05 S/CO (0-0.79)
[2024-04-19] MEDS: Folic Acid/Vit B Comp W-C PO SCH (09:38)
[2024-04-19] MEDS: Aspirin 81 mg Enteric Coated Tablet PO SCH (09:38)
[2024-04-19] MEDS: Pantoprazole DR 40 MG TAB PO SCH (09:39)
[2024-04-19] MEDS ORDERED: Heparin 10,000 UNITS/ 10 ML VIAL ONE (10:40)
[2024-04-19] MEDS: Estradiol 0.01% Vaginal Cream 42.5 gm Tube VAG SCH (23:30)
[2024-04-20 06:32] LABS: #Basophils Less than 0.03 10x3/uL (0.0-0.2); #Eosinphils Less than 0.03 10x3/uL (0.0-0.7); %Basophils 0.2 % (0.0-1.0); %Lymphocytes 47.7 % (21.0-51.0); %Monocytes 17.4 % (0.0-10.0); %Neutrophils 34.5 % (42.0-75.0); Hematocrit 29.9 % (36.0-47.0); Hemoglobin 9.6 g/dL (12.0-16.0); Mean Corpuscular HGB CONC 32.1 g/dL (32.0-36.0); Mean Corpuscular Hemoglobin 37.1 pg (27.0-31.0); Mean Corpuscular Volume 115.4 fL (78.0-98.0); Platelet Count 140 10x3/uL (130-400); RBC Distribution Width 17.6 % (11.5-14.5); Red Blood Cell (RBC) Count 2.59 mill/uL (4.20-5.40)
[2024-04-20 06:41] LABS: Anion Gap 10 mmol/L (10-20); BUN (Urea Nitrogen) 9 mg/dL (9.8-20.1); Calc. Creatinine Clearance 22 mL/min (70-130); Calcium 8.7 mg/dL (7.8-10.44); Carbon Dioxide 29 mmol/L (23-31); Chloride 102 mmol/L (98-107); Estimated GFR 33; Glucose 65 mg/dL (80-115); Iron 72 ug/dL (50-170); Iron Binding Capacity, Total 106 mcg/dL (265-497); Potassium 3.7 mmol/L (3.5-5.1); Sodium 137 mmol/L (136-145)
[2024-04-20 07:41] LABS: Ferritin 2984.61 ng/mL (10-291)
[2024-04-20 08:24] LABS: Macrocytosis SLIGHT = 6-15 cells (100X) (0-5/hpf); Polychromasia SLIGHT = 2-3 cells (100X) (0-2/hpf)
[2024-04-20 08:26] LABS: Plasma Cells 0 % (0-0); Platelet Adequacy Comment Appears Adequate
[2024-04-20] MEDS: Benztropine 1 MG TAB PO SCH (20:30)
[2024-04-21 07:41] LABS: #Basophils Less than 0.03 10x3/uL (0.0-0.2); #Eosinphils Less than 0.03 10x3/uL (0.0-0.7); %Basophils 0.2 % (0.0-1.0); %Lymphocytes 52.1 % (21.0-51.0); %Monocytes 16.9 % (0.0-10.0); %Neutrophils 30.6 % (42.0-75.0); Hematocrit 30.6 % (36.0-47.0); Hemoglobin 9.9 g/dL (12.0-16.0); Mean Corpuscular HGB CONC 32.4 g/dL (32.0-36.0); Mean Corpuscular Hemoglobin 36.1 pg (27.0-31.0); Mean Corpuscular Volume 111.7 fL (78.0-98.0); Platelet Count 133 10x3/uL (130-400); RBC Distribution Width 17.1 % (11.5-14.5); Red Blood Cell (RBC) Count 2.74 mill/uL (4.20-5.40)
[2024-04-21 08:32] LABS: Anion Gap 10 mmol/L (10-20); BUN (Urea Nitrogen) 21 mg/dL (9.8-20.1); Calc. Creatinine Clearance 13 mL/min (70-130); Calcium 8.9 mg/dL (7.8-10.44); Carbon Dioxide 29 mmol/L (23-31); Chloride 102 mmol/L (98-107); Estimated GFR 18; Glucose 64 mg/dL (80-115); Sodium 136 mmol/L (136-145)
[2024-04-21 10:20] LABS: Bacteria/HPF 4+ HPF (None Seen); Bilirubin Negative (Negative); Blood, Urine 1+ (Negative); CAUTI Indications for Culture Alt mental st,lethar; Clarity Turbid (Clear); Glucose, Urine (Dipstick) Normal (Negative); Ketone, Urine Negative (Negative); Leukocyte 500 Leu/uL (Negative); Nitrite Negative (Negative); Protein, Urine (Dipstick) 50 mg/dL (Neg-Trace); Specific Gravity, Urine 1.008 (1.002-1.036); Squamous Epithelial 0-3 HPF (0-3); Urobilinogen Normal mg/dL (Less than 2); WBC/HPF Greater than 50 HPF (0-3)
[2024-04-21 10:22] LABS: Urine Culture Reflex Yes Yes
[2024-04-21] MEDS ORDERED: Heparin 10,000 UNITS/ 10 ML VIAL ONE (12:08)
[2024-04-21 13:17] LABS: EliA Celiac New Method **** NEW METHOD ****; t-Transglutaminase (tTG) IgA 0.9 EliAU/mL (<7 Negative)
[2024-04-21] MEDS: Benztropine 1 MG TAB PO SCH (14:48)
[2024-04-22 05:23] LABS: Anion Gap 9 mmol/L (10-20); BUN (Urea Nitrogen) 12 mg/dL (9.8-20.1); Calc. Creatinine Clearance 23 mL/min (70-130); Calcium 8.7 mg/dL (7.8-10.44); Carbon Dioxide 29 mmol/L (23-31); Chloride 104 mmol/L (98-107); Estimated GFR 29; Glucose 67 mg/dL (80-115); Potassium 4.4 mmol/L (3.5-5.1); Sodium 138 mmol/L (136-145)
[2024-04-22] MEDS: Amiodarone 200 MG TAB PO SCH (20:18)
[2024-04-22] MEDS: Divalproex Sodium 125 mg Sprinkle Capsule PO SCH (20:18)
[2024-04-23 04:49] LABS: #Basophils Less than 0.03 10x3/uL (0.0-0.2); #Eosinphils Less than 0.03 10x3/uL (0.0-0.7); %Basophils 0.4 % (0.0-1.0); %Lymphocytes 58.4 % (21.0-51.0); %Monocytes 14.1 % (0.0-10.0); %Neutrophils 26.9 % (42.0-75.0); Hematocrit 29.1 % (36.0-47.0); Hemoglobin 9.3 g/dL (12.0-16.0); Mean Corpuscular Hemoglobin 35.8 pg (27.0-31.0); Mean Corpuscular Volume 111.9 fL (78.0-98.0); Mean Platelet Volume 9.9 fL (7.4-10.4); Platelet Count 124 10x3/uL (130-400); RBC Distribution Width 16.4 % (11.5-14.5)
[2024-04-23 04:56] LABS: ALT (SGPT) 53 U/L (8-55); AST (SGOT) 81 U/L (5-34); Albumin 1.8 g/dL (3.4-4.8); Alkaline Phosphatase 114 U/L (40-110); Anion Gap 10 mmol/L (10-20); BUN (Urea Nitrogen) 23 mg/dL (9.8-20.1); Bilirubin, Total 0.2 mg/dL (0.2-1.2); Calc. Creatinine Clearance 16 mL/min (70-130); Calcium 8.6 mg/dL (7.8-10.44); Carbon Dioxide 26 mmol/L (23-31); Chloride 104 mmol/L (98-107); Estimated GFR 18; Globulin 3.8 g/dL (2.4-3.5); Glucose 66 mg/dL (80-115); Potassium 4.7 mmol/L (3.5-5.1); Protein, Total 5.6 g/dL (5.8-8.1); Sodium 135 mmol/L (136-145)
[2024-04-23] MEDS ORDERED: Folic Acid/Vit B Comp W-C PO SCH (09:00)
[2024-04-23] MEDS: Multivitamin W/ Minerals 1 TAB PO SCH (10:59)
[2024-04-23] MEDS: Benztropine 1 MG TAB PO SCH (11:00)
[2024-04-23] MEDS: Dextrose 5% in Water 1,000 ML IV SCH (11:31)
[2024-04-24] MEDS: Promethazine HCl 25 MG in Sodium Chloride 0.9% 50 ML IVPB PRN (10:43)
[2024-04-24] MEDS ORDERED: Heparin 10,000 UNITS/ 10 ML VIAL ONE (15:52)
[2024-04-25 12:55] VITALS: BMI 20.9
[2024-04-25 17:47] VITALS: BP 126/72; TEMP 97.3
== END 2024-04-25 16:45 | DRG 698 ==
LOC: ERS 14:53 → ERHOLD 20:32 → 2NO 04-19 01:34 → OBSVTOIN 04-19 13:05 → MSONC 04-24 21:04
PROVIDERS: ADMIT Internal Medicine; ATTEND Internal Medicine
PROC: 5A1D70Z Performance of Urinary Filtration, Intermittent, Less than 6 Hours Per Day (ICD-10-PCS; principal; 2024-04-21)
DX: T83.511A Infection and inflammatory reaction due to indwelling urethral catheter, initial encounter (principal); E43 Unspecified severe protein-calorie malnutrition; N18.6 End stage renal disease; I21.A1 Myocardial infarction type 2; I50.32 Chronic diastolic (congestive) heart failure; F03.93 Unspecified dementia, unspecified severity, with mood disturbance; I48.11 Longstanding persistent atrial fibrillation; L97.429 Non-pressure chronic ulcer of left heel and midfoot with unspecified severity; L97.419 Non-pressure chronic ulcer of right heel and midfoot with unspecified severity; I13.2 Hypertensive heart and chronic kidney disease with heart failure and with stage 5 chronic kidney disease, or end stage renal disease; E03.9 Hypothyroidism, unspecified; N39.0 Urinary tract infection, site not specified; F39 Unspecified mood [affective] disorder; E88.09 Other disorders of plasma-protein metabolism, not elsewhere classified; K59.00 Constipation, unspecified; B96.20 Unspecified Escherichia coli [E. coli] as the cause of diseases classified elsewhere; B96.4 Proteus (mirabilis) (morganii) as the cause of diseases classified elsewhere; D63.8 Anemia in other chronic diseases classified elsewhere; Y84.6 Urinary catheterization as the cause of abnormal reaction of the patient, or of later complication, without mention of misadventure at the time of the procedure; K21.9 Gastro-esophageal reflux disease without esophagitis; E78.5 Hyperlipidemia, unspecified; F31.9 Bipolar disorder, unspecified; G20.B1 Parkinson's disease with dyskinesia, without mention of fluctuations; Z99.2 Dependence on renal dialysis; Z88.5 Allergy status to narcotic agent; Z88.0 Allergy status to penicillin; Z79.899 Other long term (current) drug therapy; Z79.890 Hormone replacement therapy; Z79.82 Long term (current) use of aspirin; Z79.01 Long term (current) use of anticoagulants; Z74.01 Bed confinement status; Z68.21 Body mass index [BMI] 21.0-21.9, adult; Z98.51 Tubal ligation status
CPT/HCPCS: 36415; 36416; 36556; 51701; 71045; 74176; 80048; 80053; 81001; 82607; 82728; 83516; 83525; 83540; 83550; 83605; 83690; 83735; 83880; 84439; 84443; 84481; 84484; 84681; 85025; 85610; 85730; 86704; 86706; 86803; 87077; 87086; 87186; 87340; 90935; 93005; 96374; 97139; G0257; G0378; J0696; J1644; J2550; J3490; J7070

== ENCOUNTER 2024-04-27 12:55 | Emergency (ER) | payer MEDICARE, OTHER | END 2024-04-27 17:41 | LOC: ERS 12:55 | DX: Z49.01 Encounter for fitting and adjustment of extracorporeal dialysis catheter (principal); I13.2 Hypertensive heart and chronic kidney disease with heart failure and with stage 5 chronic kidney disease, or end stage renal disease; I50.9 Heart failure, unspecified; N18.6 End stage renal disease; I48.91 Unspecified atrial fibrillation; E03.9 Hypothyroidism, unspecified | CPT/HCPCS: 99283 ==